=== PATIENT | male | born 1955 | race Caucasian/White ===

== ENCOUNTER 2019-03-27 06:26 | Emergency (ER) | payer OTHER ==
[~2019-03-27] VITALS: Ht 180.3 cm; Wt 90.7 kg
--- OUTSIDE RECORDS SUMMARY | 2019-03-27 06:29 | XMS REPORT ---
Author [facility] Address Unknown Phone Unavailable Care Team Providers Care [employer] Name Role Phone LENNOX STYLES Unavailable Unavailable Problems This patient has no known problems. Allergies, Adverse Reactions, Alerts This patient has no known allergies or adverse reactions. Medications This patient has no known medications. Results Test Description Test Time Test Comments Text Results Atomic Results Result Comments CT ABDOMEN/PELVIS WO 2019 16:14:00 [facility] [address] [place] [address] Patient Name: MUKESH HILLIARD MR #: [id number] : 1955 Age/Sex: 64/M Req #: [id number] Adm Physician: Ordered by: LENNOX STYLES DO Report #: [id number] Location: ER Room/Bed: Procedure: [id number] CT/CT ABDOMEN/PELVIS WO Exam Date: 03/11/19 Exam Time: 1530 REPORT STATUS: Signed CT of the abdomen and pelvis, without contrast, . History: Abdominal pain, hypotension. Comparison: None available. Technique: Multidetector CT scanning of the abdomen and pelvis was performed from the level of the lung bases to the inferior pubic rami without intravenous contrast due to abnormal renal function. Oral contrast was given. Coronal and sagittal multiplanar reformations were obtained. RADIATION DOSE: Total DLP: 630 mGy*cm Dose modulation, iterative reconstruction, and/or weight based adjustment of the mA/kV was utilized to reduce the radiation dose to as low as reasonably achievable. Discussion: Examination is limited without contrast. Lung bases: There is bibasilar linear atelectasis. A calcified granuloma is present in the left lower lobe. Abdomen: There is severe diffuse low-density of the liver which measures negative Hounsfield units in density. The gallbladder, biliary tree, spleen, pancreas, adrenal glands, and kidneys are unremarkable. The abdominal aorta is within normal limits. There is no bowel dilatation. The appendix is visualized and is normal. Multiple diverticuli are present within the descending and sigmoid colon without evidence of adjacent inflammation. A long segment of circumferential bowel wall thickening is present involving the proximal sigmoid colon without evidence of obstruction or end shouldering. There is no evidence of adenopathy or free fluid. Pelvis: The bladder, prostate, and seminal vesicles are unremarkable. There is no evidence of free fluid or adenopathy. Bilateral fat-containing inguinal hernias are present. Bones and soft tissues: Degenerative changes are present throughout the lumbar spine without evidence of lytic or sclerotic lesion. IMPRESSION: 1. Severe diffuse fatty infiltration of the liver. 2. Extensive colonic diverticulosis without evidence of diverticulitis. Sigmoid wall thickening is likely related to muscular hypertrophy from chronic diverticular disease rather than neoplasm. Recommend follow-up scan in 2 - 3 months. 3. Bilateral fat-containing inguinal hernias. Signed by: Nasra Sierra on 2019 4:49 PM Dictated By: NASRA SIERRA MD 48 Transcribed By: DEANDRE on 03/11/191648 COPY TO: LENNOX STYLES DO
--- NOTE | 2019-03-27 07:23 | NUR ---
CALLED AND SPOKE TO ANY, PTS AUNT AND STATES THAT SHE WILL BE DOWN AFTER A WHILE.
[2019-03-27] MEDS ORDERED: MULTIVITAMINS- 12 INJECTION 10 ML, FOLIC ACID MDV 5 MG, THIAMINE HCL INJ 100 MG in SODI... IV ONE (07:30)
[2019-03-27 08:10] LABS: AMPHETAMINES SCREEN,URINE NEGATIVE (NEGATIVE); BENZODIAZEPINES SCREEN,URINE NEGATIVE (NEGATIVE); PHENCYCLIDINE SCREEN,URINE NEGATIVE (NEGATIVE)
[2019-03-27 08:11] LABS: CLARITY,URINE CLEAR (CLEAR); COLOR,URINE YELLOW (YELLOW)
[2019-03-27 08:12] LABS: BILIRUBIN,URINE NEGATIVE (NEGATIVE); KETONES,URINE NEGATIVE (NEGATIVE); LEUKOCYTE ESTERASE ,URINE NEGATIVE (NEGATIVE); NITRITE,URINE NEGATIVE (NEGATIVE); PROTEIN,URINE DIPSTICK NEGATIVE (NEGATIVE); URINE UROBILINOGEN 0.2 mg/dL (0.2 - 1)
--- NOTE | 2019-03-27 08:12 | NUR ---
CLIENT TO CT WITH RIDDHI.
[2019-03-27 08:23] LABS: EOSINOPHILS # (AUTO) 0.4 (0.0-0.4); EOSINOPHILS % 8.7 % (0.0-6.0); HEMATOCRIT 31.3 % (38.2-49.6); HEMOGLOBIN 10.5 g/dL (14.0-18.0); LYMPHOCYTES # (AUTO) 1.3 (1.0-3.2); LYMPHOCYTES % 31.3 % (18.0-39.1); MEAN CORPUSCULAR HEMOGLOBIN 34.9 pg (28-32); MEAN CORPUSCULAR HGB CONC 33.5 g/dL (31-35); MONOCYTES # (AUTO) 0.6 (0.2-0.8); NEUTROPHILS # (AUTO) 1.8 (2.1-6.9); NEUTROPHILS % 44.3 % (38.7-80.0); PLATELET COUNT 271 x10e3/uL (140-360); RED BLOOD COUNT 3.01 x10e6/uL (4.3-5.7); RED CELL DISTRIBUTION WIDTH 15.5 % (11.7-14.4)
[2019-03-27 08:28] LABS: BACTERIA,URINE RARE /HPF; EPITHELIAL CELLS,URINE FEW /LPF; RBC,URINE 0-5 /HPF (0-5); WBC,URINE (MAN) 0-5 /HPF (0-5)
[2019-03-27 08:53] LABS: ALANINE AMINOTRANSFERASE 20 IU/L (0-55); ALBUMIN 3.7 g/dL (3.5-5.0); ALBUMIN/GLOBULIN RATIO 1.1 (0.8-2.0); ALKALINE PHOSPHATASE 90 IU/L (40-150); BLOOD UREA NITROGEN 8 mg/dL (7-26); BUN/CREATININE RATIO 8 (6-25); CALCIUM 9.4 mg/dL (8.4-10.2); CARBON DIOXIDE 25 mmol/L (22-29); CHLORIDE 96 mmol/L (98-107); CREATININE, SERUM 0.99 mg/dL (0.72-1.25); EST GLOMERULAR FILTRATION RATE > 60 ML/MIN (60-); GLUCOSE 87 mg/dL (74-118); SODIUM 139 mmol/L (136-145)
--- NOTE | 2019-03-27 09:00 | Diagnostic Imaging Report ---
Examination: Single AP view of the chest. COMPARISON: None. INDICATION: Syncope DISCUSSION: Lines/tubes: None. Lungs: The lungs are well inflated and clear. No pneumonia or pulmonary edema. Pleura: No pleural effusion or pneumothorax. Heart and mediastinum: The heart and the mediastinum are unremarkable. Bones and soft tissues: No acute bony abnormalities. IMPRESSION: 1. No acute cardiopulmonary abnormalities. Signed by: Dr. Jared Phoenix M.D. on 03/27/2019 8:57 AM
--- NOTE | 2019-03-27 09:20 | Diagnostic Imaging Report ---
History:Syncope Comparison studies:None Technique: Axial images were obtained from the skull base to the vertex. Coronal and sagittal images reconstructed from the axial data. Intravenous contrast: None Dose modulation, iterative reconstruction, and/or weight based adjustment of the mA/kV was utilized to reduce the radiation dose to as low as reasonably achievable. Findings: Scalp/skull: No abnormalities. Extra-axial spaces: No masses. No fluid collections. Brain sulci: Mildly prominent. Ventricles: Mild compensatory dilatation. No hydrocephalus. Parenchyma: Few hypodensities in the supratentorial white matter are small vessel ischemic changes. No masses, hemorrhage, acute or chronic cortical vascular insults. Sellar/suprasellar region: No abnormalities. Craniocervical junction: Patent foramen magnum. No Chiari one malformation. Incidental findings: Atherosclerotic calcifications in the carotid siphons . Mild mucosal thickening at the ethmoid air cells and left sphenoid sinus, nonspecific. 2 cm there is hypodensity in the left central posterior suboccipital neck, secondary to interval inclusion cyst. Impression: No acute abnormalities. Chronic findings: 1. Mild generalized volume loss. 2. Mild supratentorial white matter small vessel ischemic changes. Signed by: DR Mike Denton M.D. on 03/27/2019 9:17 AM
== END 2019-03-27 12:02 | disposition home or self-care (01) ==
LOC: ER 06:26
DX: R55 Syncope and collapse (principal); F10.129 Alcohol abuse with intoxication, unspecified; I10 Essential (primary) hypertension; E86.0 Dehydration; F17.200 Nicotine dependence, unspecified, uncomplicated
CPT/HCPCS: 36415; 70450; 71045; 80053; 80307; 80320; 81001; 85025; 93005; 99284; J3411; J7030

== ENCOUNTER 2019-12-04 18:48 | Inpatient (IN) | payer OTHER ==
[~2019-12-04] VITALS: Ht 180.3 cm; Wt 73.0 kg
[2019-12-04] MEDS ORDERED: PANTOPRAZOLE 40 MG 10ML VIAL IV STA (19:02)
[2019-12-04] MEDS ORDERED: ONDANSETRON HCL INJ 2MG/ML 2ML 2 MG/ML VIAL IV STA (19:02)
--- OUTSIDE RECORDS SUMMARY | 2019-12-04 19:04 | XMS REPORT | Continuity of Care Document ---
Author Author [facility] Organization [facility] Address [address] [place] [address] Dr. Garcia [address] [place] [id number] Phone Unavailable Care Team Providers Care Plug Assembler Name Role Phone SUZANNE KHAN DO PCP Carissa GUSTAFSON Attphys Unavailable LENNOX STYLES Attphyoriana Unavailable Payers Payer Name Policy Type Policy Number Effective Date Expiration Date Oriana [employer] [id number] 2019 00:00:00 [facility] Problems This patient has no known problems. Allergies, Adverse Reactions, Alerts This patient has no known allergies or adverse reactions. Medications This patient has no known medications. Procedures Procedure Date / Time Performed Performing Clinician Sour e Computed tomography of brain without radiopaque contrast 00:00:00 HEBER TOLENTINO [facility] CT of abdomen and pelvis without contrast 2019 00:00:00 LENNOX GARDNER [facility] Encounters Start Date/Time End Date/Time [facility] ID Source 2019-03-27 06:26:00 2019-03-27 12:02:00 Departed Emergency Room 1 EDILMA GUSTAFSON [facility] [id number] [facility] 2019 13:39:00 2019 21:20:00 Departed Emergency Room 1 LENNOX STYLES [facility] [id number] [facility] Results Test Description Test Time Test Comments Results Result Comments Source CT BRAIN WO 2019-03-27 09:11:00 [facility] [address] [place], [place] [address] Patient Name: MUKESH HILLIARD JR MR #: [id number] : 1955 Age/Sex: 64/M Req #: [id number] [facility] Physician: Ordered by: HEBER TOLENTINO MD Report #: [id number] Location: ER Room/Bed: Procedure: [id number] CT/CT BRAIN WO Exam Date: 03/27/19 Exam Time: 0900 REPORT STATUS: Signed History:Syncope Comparison studies:None Te chn[place]: Axial images were obtained from the skull base to the vertex. Coronal and sagittal images reconstructed from the axial data. Intravenous contrast: None Dose modulation, iterative reconstruction, and/or weight based adjustment of the mA/kV was utilized to reduce the radiation dose to as low as reasonably achievable. Findings: Scalp/skull: No abnormalities. Extra-axial spaces: No masses. No fluid collections. Brain sulci: Mildly prominent. Ventricles: Mild compensatory dilatation. No hydrocephalus. Parenchyma: Few hypodensities in the supratentorial white matter are small vessel ischemic changes. No masses, hemorrhage, acute or chronic cortical vascular insults. Sellar/suprasellar region: No abnormalities. Craniocervical junction: Patent foramen magnum. No Chiari one malformation. Incidental findings: Atherosclerotic calcifications in the carotid siphons . Mild mucosal thickening at the ethmoid air cells and left sphenoid sinus, nonspecific. 2 cm there is hypodensity in the left central posterior suboccipital neck, secondary to interval inclusion cyst. Impression: No acute abnormalities. Chronic findings: 1. Mild generalized volume loss. 2. Mild supratentorial white matter small vessel ischemic changes. Signed by: DR Mike Denton M.D. on 03/27/2019 9:17 AM Dictated By: MIKE ELLIS MD 6 Transcribed By: DEANDRE on 03/27/19916 COPY TO: HEBER TOLENTINO MD CHEST SINGLE (PORTABLE) 2019-03-27 08:56:00 [facility] [address] [place] [address] Patient Name: MUKESH HILLIARD JR MR #: [id number] : 1955 Age/Sex: 64/M Req #: [id number] Adm Physician: Ordered by: HEBER TOLENTINO MD Report #: [id number] Location: ER Room/Bed: Procedure: [id number] DX/CHEST SINGLE (PORTABLE) Exam Date: Exam Time: REPORT STATUS: Signed Examination: Single AP view of the chest. COMPARISON: None. INDICATION: Syncope DISCUSSION: Lines/tubes: None. Lungs: The lungs are well inflated and clear. No pneumonia or pulmonary edema. Pleura: No pleural effusion or pneumothorax. Heart and mediastinum: The heart and the mediastinum are unremarkable. Bones and soft tissues: No acute bony abnormalities. IMPRESSION: 1. No acute cardiopulmonary abnormalities. Signed by: Dr. Suzanne Hernandez M.D. on 03/27/2019 8:57 AM Dictated By: SUZANNE HERNANDEZ MD 6 Transcribed By: DEANDRE on 03/27/19856 COPY TO: HEBER TOLENTINO MD Ethyl Alcohol Level 2019-03-27 08:54:00 Test Item Ethyl Alcohol Level (test code = 5643-2) 289.6 0.0-10.0 [facility] Uqnyl8692-55-07 08:53:00* Test Item Value Reference Range Interpretation Comments Sodium Level (test code = 2951-2) 139 136-145 [facility]assium Cnddm4535-69-30 08:53:00* Test Item Value Reference Range Interpretation Comments Potassium Level (test code = 2823-3) 4.0 3.5-5.1 [facility]Chloride Zbqes7088-91-32 08:53:00* Test Item Value Reference Range Interpretation Comments Chloride Level (test code = 2075-0) 96 98-107 L [facility] SouthCarbon Dioxide Gysgq3206-03-24 08:53:00* Test Item Value Reference Range Interpretation Comments Carbon Dioxide Level (test code = 2028-9) 25 22-29 [facility] SouthAnion Whb6072-40-21 08:53:00* Test Item Value Reference Range Interpretation Comments Anion Gap (test code = 85698-2) 22.0 8-16 H [facility] Urea Kyokpaax1188-75-35 08:53:00* Test Item Value Reference Range Interpretation Comments Blood Urea Nitrogen (test code = 3094-0) 8 7-26 [facility] SouthCreatinine2020-02-08 08:53:00* Test Item Value Reference Range Interpretation Comments Creatinine (test code = 2160-0) 0.99 0.72-1.25 [facility]BUN/Creatinine Xoaok3449-96-05 08:53:00* Test Item Value Reference Range Interpretation Comments BUN/Creatinine Ratio (test code = 3097-3) 8 6-25 [facility] SouthEstimat Glomerular Filtration Rate 2019-03-27 08:53:00* Test Item Value Reference Range Interpretation Comments Estimat Glomerular Filtration Rate (test code = 301498045) > 60 >60 Ranges were taken from the National Kidney Disease Education Program and the [facility] Kidney Foundation literature.Reference ranges:60 or greater: Ovsvom76-96 ( for 3 consecutive months): Chronic kidney disease 15 or less: Kidney failureCHRISTUS [facility]ohn Hospital [facility]i – SouthGlucose Apyfi2873-22-57 08:53:00* Test Item Value Reference Range Interpretation Comments Glucose Level (test code = FDP3065) 87 74-118 [facility] SouthCalcium Rfzpo2087-74-91 08:53:00* Test Item Value Reference Range Interpretation Comments Calcium Level (test code = 98570-8) 9.4 8.4-10.2 [facility] SouthTotal Qgcjkqgxi5130-14-94 08:53:00* Test Item Value Reference Range Interpretation Comments Total Bilirubin (test code = 1975-2) 0.3 0.2-1.2 [facility] SouthAspartate Amino Transf (AST/SGOT) 2019-03-27 08:53:00* Test Item Value Reference Range Interpretation Comments Aspartate Amino Transf (AST/SGOT) (test code = Aspartate Amino Transf (AST/SGOT)) 46 5-34 H [facility] SouthAlanine Aminotransferase (ALT/SGPT) 2019-03-27 08:53:00* Test Item Value Reference Range Interpretation Comments Alanine Aminotransferase (ALT/SGPT) (test code = 1742-6) 20 0-55 [facility]Total Ngjhuwl6560-75-72 08:53:00* Test Item Value Reference Range Interpretation Comments Total Protein (test code = 2885-2) 7.1 6.5-8.1 [facility] SouthAlbumin2020-02-08 08:53:00* Test Item Value Reference Range Interpretation Comments Albumin (test code = 1751-7) 3.7 3.5-5.0 [facility] SouthGlobulin2020-02-08 08:53:00* Test Item Value Reference Range Interpretation Comments Globulin (test code = 65999-6) 3.4 2.3-3.5 [facility] SouthAlbumin/Globulin Xujbs4679-31-56 08:53:00 * Test Item Value Reference Range Interpretation Comments Albumin/Globulin Ratio (test code = 1759-0) 1.1 0.8-2.0 [facility] SouthAlkaline Xqjghxutkym1406-81-17 08:53:00* Test Item Value Reference Range Interpretation Comments Alkaline Phosphatase (test code = 6768-6) 90 40-150 [facility] SouthUrine ILJ1433-39-47 08:28:00* Test Item Value Reference Range Interpretation Comments Urine WBC (test code = 5821-4) 0-5 0-5 [facility] SouthUrine OCA5970-53-76 08:28:00* Test Item Value Reference Range Interpretation Comments Urine RBC (test code = 68123-0) 0-5 0-5 [facility] SouthUrine Rrrtifah1757-43-34 08:28:00* Test Item Value Reference Range Interpretation Comments Urine Bacteria (test code = 18379-5) RARE NONE [facility] SouthUrine Epithelial Kbjuo4216-00-86 08:28:00 * Test Item Value Reference Range Interpretation Comments Urine Epithelial Cells (test code = 24305-5) FEW NONE [facility] SouthWhite Blood Kuyri4055-49-35 08:25:00* Test Item Value Reference Range Interpretation Comments White Blood Count (test code = 6690-2) 4.15 4.8-10.8 L [facility] SouthRed Blood Tmcja7518-36-94 08:25:00* Test Item Value Reference Range Interpretation Comments Red Blood Count (test code = 789-8) 3.01 4.3-5.7 L [facility] SouthHemoglobin2020-02-08 08:25:00* Test Item Value Reference Range Interpretation Comments Hemoglobin (test code = 35800-1) 10.5 14.0-18.0 L [facility] SouthHematocrit2020-02-08 08:25:00* Test Item Value Reference Range Interpretation Comments Hematocrit (test code = 4544-3) 31.3 38.2-49.6 L [facility] SouthMean Corpuscular Mqtwfy0427-51-50 08:25:00* Test Item Value Reference Range Interpretation Comments Mean Corpuscular Volume (test code = 787-2) 104.0 81-99 H [facility] SouthMean Corpuscular Wjfuifbzrs9343-98-64 08:25:00* Test Item Value Reference Range Interpretation Comments Mean Corpuscular Hemoglobin (test code = 785-6) 34.9 28-32 H [facility] SouthMean Corpuscular Hemoglobin Concent 2019-03-27 08:25:00* Test Item Value Reference Range Interpretation Comments Mean Corpuscular Hemoglobin Concent (test code = 786-4) 33.5 31-35 [facility] SouthRed Cell Distribution Ywwpj9451-90-95 08:25:00* Test Item Value Reference Range Interpretation Comments Red Cell Distribution Width (test code = 39330-6) 15.5 11.7 -14.4 H [facility] SouthPlatelet Ehxnm7170-47-86 08:25:00* Test Item Value Reference Range Interpretation Comments Platelet Count (test code = 777-3) 271 140-360 [facility] SouthNeutrophils (%) (Auto)2019-03-27 08:25:00 * Test Item Value Reference Range Interpretation Comments Neutrophils (%) (Auto) (test code = 30702-7) 44.3 38.7-80.0 [facility] SouthLymphocytes (%) (Auto)2019-03-27 08:25:00 * Test Item Value Reference Range Interpretation Comments Lymphocytes (%) (Auto) (test code = 736-9) 31.3 18.0-39.1 [facility] SouthMonocytes (%) (Auto)2019-03-27 08:25:00* Test Item Value Reference Range Interpretation Comments Monocytes (%) (Auto) (test code = 5905-5) 14.0 4.4-11.3 H [facility] SouthEosinophils (%) (Auto)2019-03-27 08:25:00 * Test Item Value Reference Range Interpretation Comments Eosinophils (%) (Auto) (test code = 713-8) 8.7 0.0-6.0 H [facility] SouthBasophils (%) (Auto)2019-03-27 08:25:00* Test Item Value Reference Range Interpretation Comments Basophils (%) (Auto) (test code = 706-2) 1.0 0.0-1.0 [facility] SouthIM GRANULOCYTES %2019-03-27 08:25:00* Test Item Value Reference Range Interpretation Comments IM GRANULOCYTES % (test code = IM GRANULOCYTES %) 0.7 0.0- 1.0 [facility] SouthNeutrophils # (Auto)2019-03-27 08:25:00* Test Item Value Reference Range Interpretation Comments Neutrophils # (Auto) (test code = 751-8) 1.8 2.1-6.9 L [facility] SouthLymphocytes # (Auto)2019-03-27 08:25:00* Test Item Value Reference Range Interpretation Comments Lymphocytes # (Auto) (test code = 96080-7) 1.3 1.0-3.2 [facility] SouthMonocytes # (Auto)2019-03-27 08:25:00* Test Item Value Reference Range Interpretation Comments Monocytes # (Auto) (test code = 742-7) 0.6 0.2-0.8 [facility]Eosinophils # (Auto)2019-03-27 08:25:00* Test Item Value Reference Range Interpretation Comments Eosinophils # (Auto) (test code = 711-2) 0.4 0.0-0.4 [facility]ophils # (Auto)2019-03-27 08:25:00* Test Item Value Reference Range Interpretation Comments Basophils # (Auto) (test code = 704-7) 0.0 0.0-0.1 [facility] SouthAbsolute Immature Granulocyte (auto 2019-03-27 08:25:00* Test Item Value Reference Range Interpretation Comments Absolute Immature Granulocyte (auto (cecile t code = Absolute Immature Granulocyte (auto) 0.03 0-0.1 [facility] SouthUrine Bgyuo9918-26-58 08:12:00* Test Item Value Reference Range Interpretation Comments Urine Color (test code = 5778-6) YELLOW YELLOW [facility] SouthUrine Pztprwm3817-14-64 08:12:00* Test Item Value Reference Range Interpretation Comments Urine Clarity (test code = 47184-9) CLEAR CLEAR [facility] SouthUrine Specific Zjfkgar2685-84-90 08:12:00 * Test Item Value Reference Range Interpretation Comments Urine Specific [place] (test code = 5811-5) 1.010 1.010-1.02 5 [facility] SouthUrine zW7744-20-97 08:12:00* Test Item Value Reference Range Interpretation Comments Urine pH (test code = 37582-5) 5.5 5-7 [facility] South[facility] Leukocyte Vgyxcmwp0197-45-72 08:12:00* Test Item Value Reference Range Interpretation Comments Urine Leukocyte Esterase (test code = 5799-2) NEGATIVE NEGATIVE [facility] SouthUrine Ghpswkz9214-87-92 08:12:00* Test Item Value Reference Range Interpretation Comments Urine Nitrite (test code = 10764-7) NEGATIVE NEGATIVE [facility] SouthUrine Uobkpxq0328-02-96 08:12:00* Test Item Value Reference Range Interpretation Comments Urine Protein (test code = 5804-0) NEGATIVE NEGATIVE [facility] Glucose (UA)2019-03-27 08:12:00* Test Item Value Reference Range Interpretation Comments Urine Glucose (UA) (test code = 2349-9) NEGATIVE NEGATIVE [facility] SouthUrine Mflaroc4703-42-24 08:12:00* Test Item Value Reference Range Interpretation Comments Urine Ketones (test code = 87334-1) NEGATIVE NEGATIVE [facility] SouthUrine Opiates Zvohme9836-55-37 08:12:00* Test Item Value Reference Range Interpretation Comments Urine Opiates Screen (test code = 25260-8) NEGATIVE NEGATIVE ALL TESTS PERFORMED MANUALLY ON [employer] TOX/SEE TESTCHRISTUS [facility] – SouthUrine Barbiturates Hrrfza5422-15-90 08:12:00* Test Item Value Reference Range Interpretation Comments Urine Barbiturates Screen (test code = 994003203) NEGATIVE NEGA TIVE [facility] SouthU[facility] Phencyclidine Vlowkj7214-29-89 08:12:00* Test Item Value Reference Range Interpretation Comments Urine Phencyclidine Screen (test code = 99987-9) NEGATIVE NEGAT GRICELDA [facility] SouthU[facility] Amphetamines Wdwxci2060-92-82 08:12:00* Test Item Value Reference Range Interpretation Comments Urine Amphetamines Screen (test code = 10172-7) NEGATIVE NEGATI VE [facility] SouthU[facility] Methamphetamines Rlosvb4031-94-81 08:12:00* Test Item Value Reference Range Interpretation Comments Urine Methamphetamines Screen (test code = Urine Metha mphetamines Screen) NEGATIVE NEGATIVE [facility] South[facility] Benzodiazepines Iyzlle6705-39-90 08:12:00* Test Item Value Reference Range Interpretation Comments Urine Benzodiazepines Screen (test code = 50662-1) NEGATIVE NEG ATIVE [facility] Cocaine Bgaoag5266-34-18 08:12:00* Test Item Value Reference Range Interpretation Comments Urine Cocaine Screen (test code = 3398-5) NEGATIVE NEGATIVE [facility] Cannabinoids Dvrzil4824-59-64 08:12:00* Test Item Value Reference Range Interpretation Comments Urine Cannabinoids Screen (test code = 31994-3) NEGATIVE NEGATI VE THESE RESULTS ARE FOR MEDICAL TREATMENT ONLYTHIS REPORT CONTAINS UNCONFIR MED SCREENING RESULTS*POSITIVE RESULTS WILL BE CONFIRMED BY REFERENCE LAB UPON R EQUEST CUT-OFFDRUG CLASS CONCENTRATION ng/mLAmphetamines 1000Methamphetamines 1000Cocaine 300Opiate 300Phencyc lidine 25Cannabinoid 50Barbiturates 300Benzodiazepine 300Methadone 300[facility] Methadone Asdqtw8544-15-48 08:12:00* Test Item Value Reference Range Interpretation Comments Urine Methadone Screen (test code = 02993-9) NEGATIVE NEGATIVE THESE RESULTS ARE FOR MEDICAL TREATMENT ONLYTHIS REPORT CONTAINS UNCONFIR MED SCREENING RESULTS*POSITIVE RESULTS WILL BE CONFIRMED BY REFERENCE LAB UPON R EQUEST CUT-OFFDRUG CLASS CONCENTRATION ng/mLAmphetamines 1000Methamphetamines 1000Cocaine Metabolite 300Opiate 300Phencyc lidine 25Cannabinoid 50Barbiturates 300Benzodiazepine 300Methadone 300[facility]field[facility] Tzhlzoaqcfri4077-46-80 08:12:00* Test Item Value Reference Range Interpretation Comments Urine Urobilinogen (test code = 17754-9) 0.2 0.2-1 [facility] Ahwbxexgh8092-74-33 08:12:00* Test Item Value Reference Range Interpretation Comments Urine Bilirubin (test code = 1978-6) NEGATIVE NEGATIVE [facility] Wegxc4497-29-25 08:12:00* Test Item Value Reference Range Interpretation Comments Urine Blood (test code = 91300-8) TRACE NEGATIVE H [facility] SouthBlood Nksevxa9098-44-82 14:59:00* Test Item Value Reference Range Interpretation Comments Blood Culture (test code = 81486521) NO GROWTH AFTER 5 DAYS, FINAL REPORT [facility] Ulssx0221-68-83 19:29:00* Test Item Value Reference Range Interpretation Comments Urine Color (test code = 5778-6) YELLOW YELLOW [facility] Cluxzqj5073-59-09 19:29:00* Test Item Value Reference Range Interpretation Comments Urine Clarity (test code = 24224-9) CLEAR CLEAR [facility] Specific Bfeuqle3318-71-54 19:29:00 * Test Item Value Reference Range Interpretation Comments Urine Specific [place] (test code = 5811-5) 1.015 1.010-1.02 5 [facility] uT8679-41-89 19:29:00* Test Item Value Reference Range Interpretation Comments Urine pH (test code = 86776-2) 5.5 5-7 [facility] Leukocyte Wwnqamyq3648-46-74 19:29:00* Test Item Value Reference Range Interpretation Comments Urine Leukocyte Esterase (test code = 5799-2) NEGATIVE NEGATIVE [facility] Lqwpqvd4308-71-52 19:29:00* Test Item Value Reference Range Interpretation Comments Urine Nitrite (test code = 71849-9) NEGATIVE NEGATIVE [facility] Qvtyqfz5654-44-71 19:29:00* Test Item Value Reference Range Interpretation Comments Urine Protein (test code = 5804-0) TRACE NEGATIVE H [facility] South[facility]rine Glucose (UA)2019 19:29:00* Test Item Value Reference Range Interpretation Comments Urine Glucose (UA) (test code = 2349-9) NEGATIVE NEGATIVE [facility] Umanzne8330-33-62 19:29:00* Test Item Value Reference Range Interpretation Comments Urine Ketones (test code = 11201-4) TRACE NEGATIVE H [facility] Oijktgdfgxjy5000-42-50 19:29:00* Test Item Value Reference Range Interpretation Comments Urine Urobilinogen (test code = 31342-4) 0.2 0.2-1 [facility] Jdrqamufd2792-88-85 19:29:00* Test Item Value Reference Range Interpretation Comments Urine Bilirubin (test code = 1978-6) NEGATIVE NEGATIVE [facility] Alfmz7861-30-55 19:29:00* Test Item Value Reference Range Interpretation Comments Urine Blood (test code = 95535-0) NEGATIVE NEGATIVE [facility] PKB5075-37-86 19:29:00* Test Item Value Reference Range Interpretation Comments Urine WBC (test code = 5821-4) NONE 0-5 [facility] VKM9180-29-37 19:29:00* Test Item Value Reference Range Interpretation Comments Urine RBC (test code = 06542-8) NONE 0-5 [facility] Jlqaqgwx8055-19-89 19:29:00* Test Item Value Reference Range Interpretation Comments Urine Bacteria (test code = 87327-0) NONE NONE [facility] Epithelial Kqvnd2145-56-97 19:29:00 * Test Item Value Reference Range Interpretation Comments Urine Epithelial Cells (test code = 33626-5) RARE NONE [facility] SouthCT ABDOMEN/PELVIS ZH7858-28-61 16:14:00 [place] [address] Patient Name: MUKESH HILLIARD MR #: [id number] : 1955 Age/Sex: 64/M Req #: [id number] Adm Physician: Ordered by: LENNOX STYLES DO Report #: [id number] Location: Room/Bed: Procedure: [id number] C T/CT ABDOMEN/PELVIS WO Exam Date: 03/11/19 Exam Time : 1530 REPORT STATUS: Signed CT of the abdomen and pelvis, without contrast, 2019. H istory: Abdominal pain, hypotension. Comparison: None available. Techn ique: Multidetector CT scanning of the abdomen and pelvis was performed from t he level of the lung bases to the inferior pubic rami without intravenous cont rast due to abnormal renal function. Oral contrast was given. Coronal and sagi ttal multiplanar reformations were obtained. RADIATION DOSE: Total D LP: 630 mGy*cm Dose modulation, iterative reconstruction, and/or weight b ased adjustment of the mA/kV was utilized to reduce the radiation dose to as l ow as reasonably achievable. Discussion: Examination is limited without contrast. Lung bases: There is bibasilar linear atelectasis. A calcified granu jyoti is present in the left lower lobe. Abdomen: There is severe diffuse low-density of the liver which measures negative Hounsfield units in density. The gallbladder, biliary tree, spleen, pancreas, adrenal glands, and kidneys a re unremarkable. The abdominal aorta is within normal limits. There is no bow el dilatation. The appendix is visualized and is normal. Multiple diverticuli are present within the descending and sigmoid colon without evidence of adjace nt inflammation. A long segment of circumferential bowel wall thickening is pr esent involving the proximal sigmoid colon without evidence of obstruction or end shouldering. There is no evidence of adenopathy or free fluid. Pelv is: The bladder, prostate, and seminal vesicles are unremarkable. There is no evidence of free fluid or adenopathy. Bilateral fat-containing inguinal hernia s are present. Bones and soft tissues: Degenerative changes are present thr oughout the lumbar spine without evidence of lytic or sclerotic lesion. IMPRESSION: 1. Severe diffuse fatty infiltration of the liver. 2. Exten sive colonic diverticulosis without evidence of diverticulitis. Sigmoid wall t hickening is likely related to muscular hypertrophy from chronic diverticular disease rather than neoplasm. Recommend follow-up scan in 2 - 3 months. 3. B ilateral fat-containing inguinal hernias. Signed by: Jeremiah Sierra on 2019 4:49 PM Dictated By: JEREMIAH SIERRA MD 48 Transcribed By: DEANDRE on 03/11/191648 C OPY TO: LENNOX STYLES DO [id number] 15:59:00* Test Item Value Reference Range Interpretation Comments Lipase (test code = 3040-3) 148 8-78 [facility] 15:59:00* Test Item Value Reference Range Interpretation Comments Lipase (test code = 3040-3) 148 8-78 H [facility] SouthCreatine Kinase [id number] 15:34:00* Test Item Value Reference Range Interpretation Comments Creatine Kinase MB (test code = 41028-3) 1.80 0-5.0 [facility]Tr[facility] [id number] 15:34:00* Test Item Value Reference Range Interpretation Comments Troponin I (test code = LUF7898) 0.098 0-0.300 [facility] SouthCreatine Kinase [id number] 15:34:00* Test Item Value Reference Range Interpretation Comments Creatine Kinase MB (test code = 65764-0) 1.80 0-5.0 [place] [id number] 15:34:00* Test Item Value Reference Range Interpretation Comments Troponin I (test code = LZU4518) 0.098 0-0.300 [facility] [id number] 15:29:00* Test Item Value Reference Range Interpretation Comments Sodium Level (test code = 2951-2) 132 136-145 L [facility] SouthPotassium [id number] 15:29:00* Test Item Value Reference Range Interpretation Comments Potassium Level (test code = 2823-3) 3.8 3.5-5.1 [facility] SouthChloride [id number] 15:29:00* Test Item Value Reference Range Interpretation Comments Chloride Level (test code = 2075-0) 83 98-107 L [facility] SouthCarbon Dioxide [id number] 15:29:00* Test Item Value Reference Range Interpretation Comments Carbon Dioxide Level (test code = 2028-9) 30 22-29 H [facility] SouthAnion [id number] 15:29:00* Test Item Value Reference Range Interpretation Comments Anion Gap (test code = 76652-8) 22.8 8-16 H [facility] SouthBlood Urea [id number] 15:29:00* Test Item Value Reference Range Interpretation Comments Blood Urea Nitrogen (test code = 3094-0) 30 7-26 H [facility] SouthCreatinine2020-01-23 15:29:00* Test Item Value Reference Range Interpretation Comments Creatinine (test code = 2160-0) 1.98 0.72-1.25 H [facility] SouthBUN/Creatinine [id number] 15:29:00* Test Item Value Reference Range Interpretation Comments BUN/Creatinine Ratio (test code = 3097-3) 15 6-25 [facility] SouthEstimat Glomerular Filtration Rate 2019 15:29:00* Test Item Value Reference Range Interpretation Comments Estimat Glomerular Filtration Rate (test code = 142006965) 34 >60 L Ranges were taken from the National Kidney Disease Education Program and the [facility] Kidney Foundation literature.Reference ranges:60 or greater: Ahlswr02-59 ( for 3 consecutive months): Chronic kidney disease 15 or less: Kidney failureCHRISTUS [facility] Christi – SouthGlucose [id number] 15:29:00* Test Item Value Reference Range Interpretation Comments Glucose Level (test code = TQM8976) 112 74-118 [facility] SouthCalcium [id number] 15:29:00* Test Item Value Reference Range Interpretation Comments Calcium Level (test code = 44840-2) 9.7 8.4-10.2 [facility] SouthTotal Tqiqpqjbt3248-48-69 15:29:00* Test Item Value Reference Range Interpretation Comments Total Bilirubin (test code = 1975-2) 0.6 0.2-1.2 [facility] SouthAspartate Amino Transf (AST/SGOT) 2019 15:29:00* Test Item Value Reference Range Interpretation Comments Aspartate Amino Transf (AST/SGOT) (test code = Aspartate Amino Transf (AST/SGOT)) 37 5-34 H [facility] SouthAlanine Aminotransferase (ALT/SGPT) 2019 15:29:00* Test Item Value Reference Range Interpretation Comments Alanine Aminotransferase (ALT/SGPT) (test code = 1742-6) 24 0-55 [facility] SouthTotal [id number] 15:29:00* Test Item Value Reference Range Interpretation Comments Total Protein (test code = 2885-2) 6.9 6.5-8.1 [facility] SouthAlbumin2020-01-23 15:29:00* Test Item Value Reference Range Interpretation Comments Albumin (test code = 1751-7) 3.9 3.5-5.0 [facility] SouthGlobulin2020-01-23 15:29:00* Test Item Value Reference Range Interpretation Comments Globulin (test code = 08504-3) 3.0 2.3-3.5 [facility] SouthAlbumin/Globulin [id number] 15:29:00 * Test Item Value Reference Range Interpretation Comments Albumin/Globulin Ratio (test code = 1759-0) 1.3 0.8-2.0 [facility] SouthAlkaline Bpdfayshdqj2379-05-27 15:29:00* Test Item Value Reference Range Interpretation Comments Alkaline Phosphatase (test code = 6768-6) 76 40-150 [facility] SouthCreatine Svhlik2503-27-13 15:29:00* Test Item Value Reference Range Interpretation Comments Creatine Kinase (test code = 2157-6) 58 30-200 [facility] SouthCreatine [id number] 15:29:00* Test Item Value Reference Range Interpretation Comments Creatine Kinase (test code = 2157-6) 58 30-200 [facility] SouthLactic Acid [id number] 15:23:00* Test Item Value Reference Range Interpretation Comments Lactic Acid Level (test code = Lactic Acid Level) 2.0 0.5- 2.0 [facility] SouthLactic Acid [id number] 15:23:00* Test Item Value Reference Range Interpretation Comments Lactic Acid Level (test code = Lactic Acid Level) 2.0 0.5- 2.0 [facility] SouthWhite Blood [id number] 15:06:00* Test Item Value Reference Range Interpretation Comments White Blood Count (test code = 6690-2) 8.20 4.8-10.8 [facility] SouthRed Blood [id number] 15:06:00* Test Item Value Reference Range Interpretation Comments Red Blood Count (test code = 789-8) 3.22 4.3-5.7 L [facility] SouthHemoglobin2020-01-23 15:06:00* Test Item Value Reference Range Interpretation Comments Hemoglobin (test code = 79686-1) 11.0 14.0-18.0 L [facility] SouthHematocrit2020-01-23 15:06:00* Test Item Value Reference Range Interpretation Comments Hematocrit (test code = 4544-3) 31.8 38.2-49.6 L [facility] SouthMean Corpuscular Edsczc4445-16-61 15:06:00* Test Item Value Reference Range Interpretation Comments Mean Corpuscular Volume (test code = 787-2) 98.8 81-99 [facility] SouthMean Corpuscular Elyqgczfon8126-15-09 15:06:00* Test Item Value Reference Range Interpretation Comments Mean Corpuscular Hemoglobin (test code = 785-6) 34.2 28-32 H [facility] SouthMean Corpuscular Hemoglobin Concent 2019 15:06:00* Test Item Value Reference Range Interpretation Comments Mean Corpuscular Hemoglobin Concent (test code = 786-4) 34.6 31-35 [facility] SouthRed Cell Distribution Jyokk0745-30-19 15:06:00* Test Item Value Reference Range Interpretation Comments Red Cell Distribution Width (test code = 18144-1) 12.7 11.7 -14.4 [facility] SouthPlatelet [id number] 15:06:00* Test Item Value Reference Range Interpretation Comments Platelet Count (test code = 777-3) 265 140-360 [facility] SouthNeutrophils (%) (Auto)2019 15:06:00 * Test Item Value Reference Range Interpretation Comments Neutrophils (%) (Auto) (test code = 33759-7) 72.2 38.7-80.0 [facility] SouthLymphocytes (%) (Auto)2019 15:06:00 * Test Item Value Reference Range Interpretation Comments Lymphocytes (%) (Auto) (test code = 736-9) 15.0 18.0-39.1 L [facility] SouthMonocytes (%) (Auto)2019 15:06:00* Test Item Value Reference Range Interpretation Comments Monocytes (%) (Auto) (test code = 5905-5) 8.5 4.4-11.3 [facility] SouthEosinophils (%) (Auto)2019 15:06:00 * Test Item Value Reference Range Interpretation Comments Eosinophils (%) (Auto) (test code = 713-8) 3.0 0.0-6.0 [facility] SouthBasophils (%) (Auto)2019 15:06:00* Test Item Value Reference Range Interpretation Comments Basophils (%) (Auto) (test code = 706-2) 0.7 0.0-1.0 [facility] SouthIM GRANULOCYTES %2019 15:06:00* Test Item Value Reference Range Interpretation Comments IM GRANULOCYTES % (test code = IM GRANULOCYTES %) 0.6 0.0- 1.0 [facility] SouthNeutrophils # (Auto)2019 15:06:00* Test Item Value Reference Range Interpretation Comments Neutrophils # (Auto) (test code = 751-8) 5.9 2.1-6.9 [facility] SouthLymphocytes # (Auto)2019 15:06:00* Test Item Value Reference Range Interpretation Comments Lymphocytes # (Auto) (test code = 61598-4) 1.2 1.0-3.2 [facility] SouthMonocytes # (Auto)2019 15:06:00* Test Item Value Reference Range Interpretation Comments Monocytes # (Auto) (test code = 742-7) 0.7 0.2-0.8 [facility] SouthEosinophils # (Auto)2019 15:06:00* Test Item Value Reference Range Interpretation Comments Eosinophils # (Auto) (test code = 711-2) 0.3 0.0-0.4 [facility] SouthBasophils # (Auto)2019 15:06:00* Test Item Value Reference Range Interpretation Comments Basophils # (Auto) (test code = 704-7) 0.1 0.0-0.1 [facility] SouthAbsolute Immature Granulocyte (auto 2019 15:06:00* Test Item Value Reference Range Interpretation Comments Absolute Immature Granulocyte (auto (cecile t code = Absolute Immature Granulocyte (auto) 0.05 0-0.1 [facility]
[2019-12-04] MEDS ORDERED: MULTIVITAMINS- 12 INJECTION 10 ML, FOLIC ACID MDV 5 MG, THIAMINE HCL INJ 100 MG in SODI... IV ONE (19:15)
[2019-12-04] MEDS ORDERED: CHLORDIAZEPOXIDE HCL 25 MG CAP PO ONE (19:15)
[2019-12-04 19:22] LABS: BASOPHILS % 0.2 % (0.0-1.0); HEMATOCRIT 40.3 % (38.2-49.6); HEMOGLOBIN 13.3 g/dL (14.0-18.0); LYMPHOCYTES # (AUTO) 0.6 (1.0-3.2); MEAN CORPUSCULAR HEMOGLOBIN 34.7 pg (28-32); MEAN CORPUSCULAR VOLUME 105.2 fL (81-99); MONOCYTES % 10.1 % (4.4-11.3); NEUTROPHILS % 83.2 % (38.7-80.0); PLATELET COUNT 83 x10e3/uL (140-360); RED BLOOD COUNT 3.83 x10e6/uL (4.3-5.7); RED CELL DISTRIBUTION WIDTH 17.6 % (11.7-14.4)
[2019-12-04 19:44] LABS: CLARITY,URINE HAZY (CLEAR); COLOR,URINE AMBER (YELLOW); LEUKOCYTE ESTERASE ,URINE NEGATIVE (NEGATIVE); NITRITE,URINE NEGATIVE (NEGATIVE)
[2019-12-04 19:45] LABS: AMPHETAMINES SCREEN,URINE NEGATIVE (NEGATIVE); BENZODIAZEPINES SCREEN,URINE NEGATIVE (NEGATIVE); KETONES,URINE >=160 (NEGATIVE); PHENCYCLIDINE SCREEN,URINE NEGATIVE (NEGATIVE); PROTEIN,URINE DIPSTICK 2+ (NEGATIVE)
[2019-12-04 19:47] LABS: BILIRUBIN,URINE MODERATE (NEGATIVE); URINE UROBILINOGEN 4 mg/dL (0.2 - 1)
[2019-12-04 19:50] LABS: ALANINE AMINOTRANSFERASE 49 IU/L (0-55); ALBUMIN 3.6 g/dL (3.5-5.0); ALBUMIN/GLOBULIN RATIO 0.9 (0.8-2.0); ALKALINE PHOSPHATASE 208 IU/L (40-150); ANION GAP 44.5 mmol/L (8-16); BLOOD UREA NITROGEN 10 mg/dL (7-26); BUN/CREATININE RATIO 9 (6-25); CALCIUM 9.5 mg/dL (8.4-10.2); CARBON DIOXIDE 11 mmol/L (22-29); CHLORIDE 88 mmol/L (98-107); CREATINE KINASE 1463 IU/L (30-200); CREATININE, SERUM 1.07 mg/dL (0.72-1.25); EST GLOMERULAR FILTRATION RATE > 60 ML/MIN (60-); GLUCOSE 62 mg/dL (74-118); POTASSIUM 4.5 mmol/L (3.5-5.1); SODIUM 139 mmol/L (136-145)
[2019-12-04 19:51] LABS: BACTERIA,URINE FEW /HPF; EPITHELIAL CELLS,URINE FEW /LPF; WBC,URINE (MAN) 0-5 /HPF (0-5)
[2019-12-04 19:52] LABS: MUCUS,URINE FEW (RARE)
[2019-12-04 20:06] LABS: AMYLASE 7 U/L (25-125); LIPASE 191 U/L (8-78)
--- NOTE | 2019-12-04 20:06 | Emergency Department Note ---
History of Present Illnes History of Present Illness Chief Complaint: General Medicine Complaints History of Present Illness This is a 64 year old male PRESENTS TO ED WITH REPORT OF GENERALIZED WEAKNESS, N/V; PT REPORTS CONSUMES ALCOHOL DAILY ([place]IS[place]) HOWEVER, HAS NOT CONSUMED ALCOHOL IN 2 DAYS; SKIN WARM, DRY, JAUNDICE; . Historian: Patient Arrival Mode: [place] [employer] Required: No Onset (how long ago): day(s) (1) Location: ALL OVER Quality: GENERALIZED WEAKNESS, N/V Radiation: Reports non-radiation Severity: moderate Onset quality: gradual Duration (how long): day(s) (1) Timing of current episode: constant Progression: worsening Chronicity: new Context: Reports other (STOP DRINKING ETOH 2 DAYS AGO, PT DRINKS 1 LITER ETOH DAILY); Denies recent illness, Denies recent surgery Relieving factors: none Exacerbating factors: none Associated symptoms: Reports nausea/vomiting Treatments prior to arrival: none Past Medical/Family History Physician Review I have reviewed the patient's past medical and family history. Any updates have been documented here. Past Medical History Recent Fever: No Clinical Suspicion of Infectio: No New/Unexplained Change in Ment: No Past Medical History: Hypertension Other Medical History: ALCOHOLISM Past Surgical History: None Social History Smoking Cessation: Current every day smoker Counseling Performed: Yes Alcohol Use: Daily Any Illegal Drug Use: No Physically hurt or threatened: No Family History Family history of heart diseas: No Other Last Tetanus: UNKNOWN Any Pre-Existing Lines (PICC,: No Review of Systems Review of Systems Constitutional: Reports no symptoms EENTM: Reports no symptoms Cardiovascular: Reports no symptoms Respiratory: Reports no symptoms Gastrointestinal: Reports as per HPI Genitourinary: Reports no symptoms Musculoskeletal: Reports no symptoms Integumentary: Reports no symptoms Neurological: Reports as per HPI Psychological: Reports no symptoms Endocrine: Reports no symptoms Hematological/Lymphatic: Reports no symptoms Review of other systems: All other systems negative Physical Exam Related Data Allergies: Coded Allergies: No Known Allergies (Unverified , 03/11/19) Triage Vital Signs Vital Signs Date Time Temp Pulse Resp B/P (MAP) Pulse Ox O2 Delivery O2 Flow Rate FiO2 12/04/19 19:46 98.3 122 24 121/74 96 Room Air Vital signs reviewed: Yes Physical Exam CONSTITUTIONAL Constitutional: Present well-developed, Present well-nourished; Absent distressed HENT HENT: Present normocephalic, Present atraumatic, Present oropharynx clear/moist, Present nose normal HENT L/R: Present left ext ear normal, Present right ext ear normal EYES Eyes: Reports PERRL, Reports conjunctivae normal NECK Neck: Present ROM normal PULMONARY Pulmonary: Present effort normal, Present breath sounds normal CARDIOVASCULAR Cardiovascular: Present regular rhythm, Present heart sounds normal, Present capillary refill normal, Present tachycardia (126) GASTROINTESTINAL Abdominal: Present soft, Present nontender, Present bowel sounds normal GENITOURINARY Genitourinary: Present exam deferred SKIN Skin: Present warm, Present dry, Present jaundiced (SLIGHT) MUSCULOSKELETAL Musculoskeletal: Present ROM normal NEUROLOGICAL Neurological: Present alert, Present oriented x 3, Present no gross motor or sensory deficits PSYCHOLOGICAL Psychological: Present mood/affect normal, Present judgement normal Results Laboratory Result Diagram: 12/04/19190912/04/191909 Laboratory Laboratory Tests Test 12/04/19 19:46 12/04/19 19:30 12/04/19 19:10 Ammonia 123 UG/DL (31-123) Urine Color Josi (YELLOW) Urine Clarity Hazy (CLEAR) Urine pH 5.5 (5 - 7) Urine Specific [place] 1.025 (1.010-1.025) Urine Protein 2+ (NEGATIVE) Urine Glucose (UA) Negative (NEGATIVE) Urine Ketones >=160 (NEGATIVE) Urine Blood Large (NEGATIVE) Urine Nitrite Negative (NEGATIVE) Urine Bilirubin Moderate (NEGATIVE) Urine Urobilinogen 4 mg/dL (0.2 - 1) Urine Leukocyte Esterase Negative (NEGATIVE) Urine RBC 11-20 /HPF (0-5) Urine WBC 0-5 /HPF (0-5) Urine Epithelial Cells Few /LPF (NONE) Urine Bacteria Few /HPF (NONE) Urine Mucus Few (RARE) Urine Opiates Screen Negative (NEGATIVE) Urine Methadone Screen (NEGATIVE) Urine Barbiturates Screen Negative (NEGATIVE) Urine Phencyclidine Screen Negative (NEGATIVE) Urine Amphetamines Screen Negative (NEGATIVE) Urine Methamphetamines Screen Negative (NEGATIVE) Urine Benzodiazepines Screen Negative (NEGATIVE) Urine Cocaine Screen Negative (NEGATIVE) Urine Cannabinoids Screen Negative (NEGATIVE) White Blood Count 9.61 x10e3/uL (4.8-10.8) Red Blood Count 3.83 x10e6/uL (4.3-5.7) Hemoglobin 13.3 g/dL (14.0-18.0) Hematocrit 40.3 % (38.2-49.6) Mean Corpuscular Volume 105.2 fL (81-99) Mean Corpuscular Hemoglobin 34.7 pg (28-32) Mean Corpuscular Hemoglobin Concent 33.0 g/dL (31-35) Red Cell Distribution Width 17.6 % (11.7-14.4) Platelet Count 83 x10e3/uL (140-360) Neutrophils (%) (Auto) 83.2 % (38.7-80.0) Lymphocytes (%) (Auto) 6.0 % (18.0-39.1) Monocytes (%) (Auto) 10.1 % (4.4-11.3) Eosinophils (%) (Auto) 0.0 % (0.0-6.0) Basophils (%) (Auto) 0.2 % (0.0-1.0) Neutrophils # (Auto) 8.0 (2.1-6.9) Lymphocytes # (Auto) 0.6 (1.0-3.2) Monocytes # (Auto) 1.0 (0.2-0.8) Eosinophils # (Auto) 0.0 (0.0-0.4) Basophils # (Auto) 0.0 (0.0-0.1) Absolute Immature Granulocyte (auto 0.05 x10e3/uL (0-0.1) Sodium Level 139 mmol/L (136-145) Potassium Level 4.5 mmol/L (3.5-5.1) Chloride Level 88 mmol/L (98-107) Carbon Dioxide Level 11 mmol/L (22-29) Anion Gap 44.5 mmol/L (8-16) Blood Urea Nitrogen 10 mg/dL (7-26) Creatinine 1.07 mg/dL (0.72-1.25) Estimat Glomerular Filtration Rate > 60 ML/MIN (60-) BUN/Creatinine Ratio 9 (6-25) Glucose Level 62 mg/dL (74-118) Calcium Level 9.5 mg/dL (8.4-10.2) Total Bilirubin 6.6 mg/dL (0.2-1.2) Aspartate Amino Transf (AST/SGOT) 254 IU/L (5-34) Alanine Aminotransferase (ALT/SGPT) 49 IU/L (0-55) Alkaline Phosphatase 208 IU/L (40-150) Creatine Kinase 1463 IU/L (30-200) Creatine Kinase MB 5.90 ng/mL (0-5.0) Troponin I 0.011 ng/mL (0-0.300) Total Protein 7.4 g/dL (6.5-8.1) Albumin 3.6 g/dL (3.5-5.0) Globulin 3.8 g/dL (2.3-3.5) Albumin/Globulin Ratio 0.9 (0.8-2.0) Amylase Level 7 U/L (25-125) Lipase 191 U/L (8-78) Laboratory Tests Test 12/04/19 19:46 12/04/19 19:30 12/04/19 19:10 Urine Color Josi (YELLOW) Urine Clarity Hazy (CLEAR) Urine pH 5.5 (5 - 7) Urine Specific [place] 1.025 (1.010-1.025) Urine Protein 2+ (NEGATIVE) Urine Glucose (UA) Negative (NEGATIVE) Urine Ketones >=160 (NEGATIVE) Urine Blood Large (NEGATIVE) Urine Nitrite Negative (NEGATIVE) Urine Bilirubin Moderate (NEGATIVE) Urine Urobilinogen 4 mg/dL (0.2 - 1) Urine Leukocyte Esterase Negative (NEGATIVE) Urine RBC 11-20 /HPF (0-5) Urine WBC 0-5 /HPF (0-5) Urine Epithelial Cells Few /LPF (NONE) Urine Bacteria Few /HPF (NONE) Urine Mucus Few (RARE) Urine Opiates Screen Negative (NEGATIVE) Urine Methadone Screen (NEGATIVE) Urine Barbiturates Screen Negative (NEGATIVE) Urine Phencyclidine Screen Negative (NEGATIVE) Urine Amphetamines Screen Negative (NEGATIVE) Urine Methamphetamines Screen Negative (NEGATIVE) Urine Benzodiazepines Screen Negative (NEGATIVE) Urine Cocaine Screen Negative (NEGATIVE) Urine Cannabinoids Screen Negative (NEGATIVE) White Blood Count 9.61 x10e3/uL (4.8-10.8) Red Blood Count 3.83 x10e6/uL (4.3-5.7) Hemoglobin 13.3 g/dL (14.0-18.0) Hematocrit 40.3 % (38.2-49.6) Mean Corpuscular Volume 105.2 fL (81-99) Mean Corpuscular Hemoglobin 34.7 pg (28-32) Mean Corpuscular Hemoglobin Concent 33.0 g/dL (31-35) Red Cell Distribution Width 17.6 % (11.7-14.4) Platelet Count 83 x10e3/uL (140-360) Neutrophils (%) (Auto) 83.2 % (38.7-80.0) Lymphocytes (%) (Auto) 6.0 % (18.0-39.1) Monocytes (%) (Auto) 10.1 % (4.4-11.3) Eosinophils (%) (Auto) 0.0 % (0.0-6.0) Basophils (%) (Auto) 0.2 % (0.0-1.0) Neutrophils # (Auto) 8.0 (2.1-6.9) Lymphocytes # (Auto) 0.6 (1.0-3.2) Monocytes # (Auto) 1.0 (0.2-0.8) Eosinophils # (Auto) 0.0 (0.0-0.4) Basophils # (Auto) 0.0 (0.0-0.1) Absolute Immature Granulocyte (auto 0.05 x10e3/uL (0-0.1) Sodium Level 139 mmol/L (136-145) Potassium Level 4.5 mmol/L (3.5-5.1) Chloride Level 88 mmol/L (98-107) Carbon Dioxide Level 11 mmol/L (22-29) Anion Gap 44.5 mmol/L (8-16) Blood Urea Nitrogen 10 mg/dL (7-26) Creatinine 1.07 mg/dL (0.72-1.25) Estimat Glomerular Filtration Rate > 60 ML/MIN (60-) BUN/Creatinine Ratio 9 (6-25) Glucose Level 62 mg/dL (74-118) Calcium Level 9.5 mg/dL (8.4-10.2) Total Bilirubin 6.6 mg/dL (0.2-1.2) Aspartate Amino Transf (AST/SGOT) 254 IU/L (5-34) Alanine Aminotransferase (ALT/SGPT) 49 IU/L (0-55) Alkaline Phosphatase 208 IU/L (40-150) Creatine Kinase 1463 IU/L (30-200) Creatine Kinase MB 5.90 ng/mL (0-5.0) Troponin I 0.011 ng/mL (0-0.300) Total Protein 7.4 g/dL (6.5-8.1) Albumin 3.6 g/dL (3.5-5.0) Globulin 3.8 g/dL (2.3-3.5) Albumin/Globulin Ratio 0.9 (0.8-2.0) Lab results reviewed: Yes Imaging Imaging results reviewed: Yes Impressions elevated right hemidiaphragm o/w negative Procedures 12 Lead ECG Interpretation ECG Interpretation : ECG: ECG 1 [place]: Interpreted by ED physician Date: Dec 04, 2019 Time: 19:23 Rhythm: sinus tachycardia Rate: tachycardia BPM: 128 QRS axis: indeterminate ST segments normal: No (ARTIFACT PRESENT) T waves normal: No (ARTIFACT PRESENT) Additional Comments MOTION ARTIFACT PRESENT THROUGHOUT EKG Critical Care Time Total Critical Care Time (min): 31 Critcal care necessary due to: other (etoh withdrawal) Critcal care time spent by me: develop tx plan w patient/surrogate, interpret cardiac output measures, evaluation patient response to tx, examination of patient, obtaining hx from patient/surrogate, order/perform tx or interventions, order/review laboratory studies, re-evaluation of patient condition Assessment & Plan Medical Decision Making MDM PT WITH WEAKNESS, N/V ADN TACHYCARDIA ON ARRIVAL, PT IS LIKELY IN ETOH WITHDRAWAL CBC, CMP, AMYLASE, LIPASE, EKG, CARDIAC ENZYMES, AMMONIA, UA ORDERED TO EVAL FOR ELECTROLYTE ABNORMALITY, ARRHYTHMIA, MYOCARDIAL INFARCTION, RENAL INSUFFICIENCY BANANA BAG 1 LITER AT 150 CC PER HOUR IV ORDERED PROTONIX 40 MG IV ORDERED ZOFRAN 4 MG IV ORDERED LIBRIUM 25 MG PO ORDERED i spoke with dr oriana kelly and dr españa, admit icu Reassessment Reassessment time: 20:47 Reassessment pt still in nad, heart rate 120 at this time, pt will need icu admission for etoh withdrawal, Assessment & Plan Final Impression: (1) Alcohol withdrawal (2) Pancreatitis (3) Vomiting (4) Tachycardia (5) Total bilirubin, elevated Depart Disposition: ADMITTED Last Vital Signs Date Time Temp Pulse Resp B/P (MAP) Pulse Ox O2 Delivery O2 Flow Rate FiO2 12/04/19 19:57 125 21 116/90 95 Room Air 12/04/19 19:46 98.3 Medications in the ED Multivitamins 10 ml/Folic Acid 5 mg/Thiamine HCl 100 mg/Sodium Chloride 1,012 ml @ 150 mls/hr Q6H45M ONCE IV Last administered on 12/04/19at 19:42; Admin Dose 150 MLS/HR; Start 12/04/19 at 19:15; Stop 12/05/19 at 01:59 Ondansetron HCl 4 mg NOW STAT IV Last administered on 12/04/19at 19:40; Admin Dose 4 MG; Start 12/04/19 at 19:02; Stop 12/04/19 at 19:11; Status DC Pantoprazole Sodium 40 mg NOW STAT IV Last administered on 12/04/19at 19:40; Admin Dose 40 MG; Start 12/04/19 at 19:02; Stop 12/04/19 at 19:11; Status DC Chlordiazepoxide HCl 25 mg ONCE ONCE PO Last administered on 12/04/19at 19:40; Admin Dose 25 MG; Start 12/04/19 at 19:15; Stop 12/04/19 at 19:20; Status DC HEBER TOLENTINO MD Dec 04, 2019 20:06
[2019-12-04] MEDS ORDERED: DEXTROSE 50% SYRINGE 50 ML IV ONE ×2 (20:11→20:15)
--- NOTE | 2019-12-04 22:35 | Diagnostic Imaging Report ---
EXAMINATION: CHEST SINGLE (PORTABLE) INDICATION: ^weakness ^[id number] ^0 ^Y COMPARISON: 03/27/2019 FINDINGS: AP view TUBES and LINES: None. LUNGS: Lungs are well inflated. There is no evidence of pneumonia or pulmonary edema. PLEURA: No pleural effusion or pneumothorax. HEART AND MEDIASTINUM: The cardiomediastinal silhouette is unremarkable. BONES AND SOFT TISSUES: No acute osseous lesion. Again seen elevated right hemidiaphragm. UPPER ABDOMEN: No free air under the diaphragm. IMPRESSION: No acute thoracic abnormality. Signed by: Dr. Trell Conner MD on 12/04/2019 10:32 PM
--- OUTSIDE RECORDS SUMMARY | 2019-12-04 22:44 | XMS REPORT | Continuity of Care Document ---
Author Author [facility] t Organization [facility] Address [address] [place] [address] Phone Unavailable Care Team Providers Care Hostess Host Name Role Phone SUZANNE KHAN DO PCP Bartolome TOLENTINO Attphys Unavailable SWEET, Carissa FRANCE Attphys Unavailable LENNOX STYLES Attphys Unavailable REIS, SOUTERE Admphys Unavailable Payers Payer Name Policy Type Policy Number Effective Date Expiration Date [employer] [id number] 2019 00:00:00 [facility] Problems This patient has no known problems. Allergies, Adverse Reactions, Alerts This patient has no known allergies or adverse reactions. Medications This patient has no known medications. Procedures Procedure Date / Time Performed Performing Clinician Sour e Computed tomography of brain without radiopaque contrast 00:00:00 HEBER TOLENTINO [facility] CT of abdomen and pelvis without contrast 2019 00:00:00 LENNOX GARDNER [facility] Encounters Start Date/Time End Date/Time En[facility] ID Source 2019-03-27 06:26:00 2019-03-27 12:02:00 Departed Emergency Room 1 EDILMA GUSTFASON [facility] [id number] [facility] 2019 13:39:00 2019 21:20:00 Departed Emergency Room 1 LENNOX STYLES [facility] [id number] [facility] Results Test Description Test Time Test Comments Results Result Comments Source CHEST SINGLE (PORTABLE) 2019-12-04 22:30:00 [facility] 1955 Sex: M [facility] [address] [address] Patient Name: MUKESH HILLIARD JR MR #: [id number] : 1955 Age/Sex: 64/M Req #: [id number] Adm Physician: Ordered by: HEBER TOLENTINO MD Report #: [id number] Location: ER Room/Bed: Procedure: [id number] DX/CHEST SINGLE (PORTABLE) Exam Date: 12/04/19 Exam Time: 2149 REPORT STATUS: Signed EXAMINATION: CHEST SINGLE (PORTABLE) INDICATION: weakness [id number] Y COMPARISON: 03/27/2019 FINDINGS: AP view TUBES and LINES: None. LUNGS: Lungs are well inflated. There is no evidence of pneumonia or pulmonary edema. PLEURA: No pleural effusion or pneumothorax. HEART AND MEDIASTINUM: The cardiomediastinal silhouette is unremarkable. BONES AND SOFT TISSUES: No acute osseous lesion. Again seen elevated right hemidiaphragm. UPPER ABDOMEN: No free air under the diaphragm. IMPRESSION: No acute thoracic abnormality. Signed by: Dr. Trell Villasenor MD on 12/04/2019 10:32 PM Dictated By: TRELL VILLASENOR MD 31 Transcribed By: DEANDRE on 12/04/192231 COPY TO: HEBER TOLENTINO MD CT BRAIN WO 2019-03-27 09:11:00 [address] [address] Patient Name: MUKESH HILLIARD JR MR #: [id number] : 1955 Age/Sex: 64/M Req #: [id number] Adm Physician: Ordered by: HEBER TOLENTINO MD Report #: [id number] Location: ER Room/Bed: Procedure: [id number] CT/CT BRAIN WO Exam Date: 03/27/19 Exam [...] TOLENTINO MD CHEST SINGLE (PORTABLE) 2019-03-27 08:56:[address] [address] Patient Name: MUKESH HILLIARD JR MR #: [id number] : 1955 Age/Sex: 64/M Req #: [id number] Adm Physician: Ordered by: HEBER TOLENTINO MD Report #: [id number] Location: ER Room/Bed: Procedure: [id number] DX/CHEST SINGLE (PORTABLE) Exam Date: Exam Time: [...] (test code = 5643-2) 289.6 0.0-10.0 [facility] Wqnwa1247-78-18 08:53:00* Test Item Value Reference Range Interpretation Comments Sodium Level (test code = 2951-2) 139 136-145 [facility] CenterPotassium Drxfn6264-45-83 08:53:00* Test Item Value Reference Range Interpretation Comments Potassium Level (test code = 2823-3) 4.0 3.5-5.1 [facility] CenterChloride Uujim6572-00-19 08:53:00* Test Item Value Reference Range Interpretation Comments Chloride Level (test code = 2075-0) 96 98-107 L [facility] CenterCarbon Dioxide Tywfs8029-39-99 08:53:00* Test Item Value Reference Range Interpretation Comments Carbon Dioxide Level (test code = 2028-9) 25 22-29 [facility] CenterAnion Rcf8607-26-99 08:53:00* Test Item Value Reference Range Interpretation Comments Anion Gap (test code = 85836-2) 22.0 8-16 H [facility] CenterBlood Urea Tpynovwj9586-52-42 08:53:00* Test Item Value Reference Range Interpretation Comments Blood Urea Nitrogen (test code = 3094-0) 8 7-26 [facility] CenterCreatinine2020-02-08 08:53:00* Test Item Value Reference Range Interpretation Comments Creatinine (test code = 2160-0) 0.99 0.72-1.25 [facility] CenterBUN/Creatinine Vcmjv1615-57-75 08:53:00* Test Item Value Reference Range Interpretation Comments BUN/Creatinine Ratio (test code = 3097-3) 8 6-25 [facility] CenterEstimat Glomerular Filtration Rate 2019-03-27 08:53:00* Test Item Value Reference Range Interpretation Comments Estimat Glomerular Filtration Rate (test code = 059293404) > 60 >60 Ranges were taken from the National Kidney Disease Education Program and the [facility] Kidney Foundation literature.Reference ranges:60 or greater: Tzgmub32-41 ( for 3 consecutive months): Chronic kidney disease 15 or less: Kidney failureLamb Healthcare CenterGlucose Qkyqm9381-30-46 08:53:00* Test Item Value Reference Range Interpretation Comments Glucose Level (test code = RRE5272) 87 74-118 [facility] CenterCalcium Pxbhs5400-35-20 08:53:00* Test Item Value Reference Range Interpretation Comments Calcium Level (test code = 49001-6) 9.4 8.4-10.2 [facility] CenterTotal Uzhrcvbta2072-56-32 08:53:00* Test Item Value Reference Range Interpretation Comments Total Bilirubin (test code = 1975-2) 0.3 0.2-1.2 [facility] CenterAspartate Amino Transf (AST/SGOT) 2019-03-27 08:53:00* Test Item Value Reference Range Interpretation Comments Aspartate Amino Transf (AST/SGOT) (test code = Aspartate Amino Transf (AST/SGOT)) 46 5-34 H [facility] CenterAlanine Aminotransferase (ALT/SGPT) 2019-03-27 08:53:00* Test Item Value Reference Range Interpretation Comments Alanine Aminotransferase (ALT/SGPT) (test code = 1742-6) 20 0-55 [facility] CenterTotal Jyusebp9468-66-21 08:53:00* Test Item Value Reference Range Interpretation Comments Total Protein (test code = 2885-2) 7.1 6.5-8.1 [facility] CenterAlbumin2020-02-08 08:53:00* Test Item Value Reference Range Interpretation Comments Albumin (test code = 1751-7) 3.7 3.5-5.0 [facility] CenterGlobulin2020-02-08 08:53:00* Test Item Value Reference Range Interpretation Comments Globulin (test code = 00701-3) 3.4 2.3-3.5 [facility] CenterAlbumin/Globulin Plrix3688-83-09 08:53:00 * Test Item Value Reference Range Interpretation Comments Albumin/Globulin Ratio (test code = 1759-0) 1.1 0.8-2.0 [facility] CenterAlkaline Kspfcpeksxr8277-86-45 08:53:00* Test Item Value Reference Range Interpretation Comments Alkaline Phosphatase (test code = 6768-6) 90 40-150 [facility] CenterUrine CIC6752-49-86 08:28:00* Test Item Value Reference Range Interpretation Comments Urine WBC (test code = 5821-4) 0-5 0-5 [facility] CenterUrine OPN7600-34-86 08:28:00* Test Item Value Reference Range Interpretation Comments Urine RBC (test code = 42224-2) 0-5 0-5 [facility] CenterUrine Jhopyzja1736-85-30 08:28:00* Test Item Value Reference Range Interpretation Comments Urine Bacteria (test code = 30569-9) RARE NONE [facility] CenterUrine Epithelial Rwhjz9795-83-16 08:28:00 * Test Item Value Reference Range Interpretation Comments Urine Epithelial Cells (test code = 76814-3) FEW NONE [facility] CenterWhite Blood Cbluf4977-07-29 08:25:00* Test Item Value Reference Range Interpretation Comments White Blood Count (test code = 6690-2) 4.15 4.8-10.8 L [facility] CenterRed Blood Wabtx6947-15-49 08:25:00* Test Item Value Reference Range Interpretation Comments Red Blood Count (test code = 789-8) 3.01 4.3-5.7 L [facility] CenterHemoglobin2020-02-08 08:25:00* Test Item Value Reference Range Interpretation Comments Hemoglobin (test code = 60997-1) 10.5 14.0-18.0 L [facility] CenterHematocrit2020-02-08 08:25:00* Test Item Value Reference Range Interpretation Comments Hematocrit (test code = 4544-3) 31.3 38.2-49.6 L [facility] CenterMean Corpuscular Blbabq2690-78-17 08:25:00* Test Item Value Reference Range Interpretation Comments Mean Corpuscular Volume (test code = 787-2) 104.0 81-99 H [facility] CenterMean Corpuscular Ihhudokteb7322-09-68 08:25:00* Test Item Value Reference Range Interpretation Comments Mean Corpuscular Hemoglobin (test code = 785-6) 34.9 28-32 H [facility] CenterMean Corpuscular Hemoglobin Concent 2019-03-27 08:25:00* Test Item Value Reference Range Interpretation Comments Mean Corpuscular Hemoglobin Concent (test code = 786-4) 33.5 31-35 [facility] CenterRed Cell Distribution Feiyn1441-30-79 08:25:00* Test Item Value Reference Range Interpretation Comments Red Cell Distribution Width (test code = 04975-8) 15.5 11.7 -14.4 H [facility] CenterPlatelet Dayqe2868-50-80 08:25:00* Test Item Value Reference Range Interpretation Comments Platelet Count (test code = 777-3) 271 140-360 [facility] CenterNeutrophils (%) (Auto)2019-03-27 08:25:00 * Test Item Value Reference Range Interpretation Comments Neutrophils (%) (Auto) (test code = 66319-9) 44.3 38.7-80.0 [facility] CenterLymphocytes (%) (Auto)2019-03-27 08:25:00 * Test Item Value Reference Range Interpretation Comments Lymphocytes (%) (Auto) (test code = 736-9) 31.3 18.0-39.1 [facility] CenterMonocytes (%) (Auto)2019-03-27 08:25:00* Test Item Value Reference Range Interpretation Comments Monocytes (%) (Auto) (test code = 5905-5) 14.0 4.4-11.3 H [facility] CenterEosinophils (%) (Auto)2019-03-27 08:25:00 * Test Item Value Reference Range Interpretation Comments Eosinophils (%) (Auto) (test code = 713-8) 8.7 0.0-6.0 H [facility] CenterBasophils (%) (Auto)2019-03-27 08:25:00* Test Item Value Reference Range Interpretation Comments Basophils (%) (Auto) (test code = 706-2) 1.0 0.0-1.0 [facility] CenterIM GRANULOCYTES %2019-03-27 08:25:00* Test Item Value Reference Range Interpretation Comments IM GRANULOCYTES % (test code = IM GRANULOCYTES %) 0.7 0.0- 1.0 [facility] CenterNeutrophils # (Auto)2019-03-27 08:25:00* Test Item Value Reference Range Interpretation Comments Neutrophils # (Auto) (test code = 751-8) 1.8 2.1-6.9 L [facility] CenterLymphocytes # (Auto)2019-03-27 08:25:00* Test Item Value Reference Range Interpretation Comments Lymphocytes # (Auto) (test code = 77720-2) 1.3 1.0-3.2 [facility] CenterMonocytes # (Auto)2019-03-27 08:25:00* Test Item Value Reference Range Interpretation Comments Monocytes # (Auto) (test code = 742-7) 0.6 0.2-0.8 [facility] CenterEosinophils # (Auto)2019-03-27 08:25:00* Test Item Value Reference Range Interpretation Comments Eosinophils # (Auto) (test code = 711-2) 0.4 0.0-0.4 [facility] CenterBasophils # (Auto)2019-03-27 08:25:00* Test Item Value Reference Range Interpretation Comments Basophils # (Auto) (test code = 704-7) 0.0 0.0-0.1 [facility] CenterAbsolute Immature Granulocyte (auto 2019-03-27 08:25:00* Test Item Value Reference Range Interpretation Comments Absolute Immature Granulocyte (auto (cecile t code = Absolute Immature Granulocyte (auto) 0.03 0-0.1 [facility] CenterUrine Urour8701-07-38 08:12:00* Test Item Value Reference Range Interpretation Comments Urine Color (test code = 5778-6) YELLOW YELLOW [facility] CenterUrine Zkhezif7566-29-87 08:12:00* Test Item Value Reference Range Interpretation Comments Urine Clarity (test code = 57303-8) CLEAR CLEAR [facility] CenterUrine Specific Swxwomx4785-82-98 08:12:00 * Test Item Value Reference Range Interpretation Comments Urine Specific [place] (test code = 5811-5) 1.010 1.010-1.02 5 [facility] CenterUrine sC7331-90-22 08:12:00* Test Item Value Reference Range Interpretation Comments Urine pH (test code = 76163-5) 5.5 5-7 [facility] CenterUrine Leukocyte Msvizshp1675-83-63 08:12:00* Test Item Value Reference Range Interpretation Comments Urine Leukocyte Esterase (test code = 5799-2) NEGATIVE NEGATIVE [facility] CenterUrine Vspahqh7874-26-95 08:12:00* Test Item Value Reference Range Interpretation Comments Urine Nitrite (test code = 02513-9) NEGATIVE NEGATIVE [facility] CenterUrine Srpotrx9605-86-05 08:12:00* Test Item Value Reference Range Interpretation Comments Urine Protein (test code = 5804-0) NEGATIVE NEGATIVE [facility] CenterUrine Glucose (UA)2019-03-27 08:12:00* Test Item Value Reference Range Interpretation Comments Urine Glucose (UA) (test code = 2349-9) NEGATIVE NEGATIVE [facility] CenterUrine Xohijot5469-30-67 08:12:00* Test Item Value Reference Range Interpretation Comments Urine Ketones (test code = 03336-1) NEGATIVE NEGATIVE [facility] CenterUrine Opiates Bsldno1968-26-36 08:12:00* Test Item Value Reference Range Interpretation Comments Urine Opiates Screen (test code = 66427-3) NEGATIVE NEGATIVE ALL TESTS PERFORMED MANUALLY ON [employer] TOX/SEE TESTLamb Healthcare CenterUrine Barbiturates Pcdety2591-70-05 08:12:00* Test Item Value Reference Range Interpretation Comments Urine Barbiturates Screen (test code = 787769889) NEGATIVE NEGA TIVE [facility] CenterUrine Phencyclidine Kgprpb6743-53-49 08:12:00* Test Item Value Reference Range Interpretation Comments Urine Phencyclidine Screen (test code = 35456-4) NEGATIVE NEGAT GRICELDA [facility] CenterUrine Amphetamines Ujwqke0574-09-16 08:12:00* Test Item Value Reference Range Interpretation Comments Urine Amphetamines Screen (test code = 21150-2) NEGATIVE NEGATI VE [facility] CenterUrine Methamphetamines Zbcrcz6385-53-96 08:12:00* Test Item Value Reference Range Interpretation Comments Urine Methamphetamines Screen (test code = Urine Metha mphetamines Screen) NEGATIVE NEGATIVE [facility] CenterUrine Benzodiazepines Jiiuei7155-46-97 08:12:00* Test Item Value Reference Range Interpretation Comments Urine Benzodiazepines Screen (test code = 53131-7) NEGATIVE NEG ATIVE [facility] CenterUrine Cocaine Vtdlsf4649-44-48 08:12:00* Test Item Value Reference Range Interpretation Comments Urine Cocaine Screen (test code = 3398-5) NEGATIVE NEGATIVE [facility] CenterUrine Cannabinoids Mwcdfm1056-09-54 08:12:00* Test Item Value Reference Range Interpretation Comments Urine Cannabinoids Screen (test code = 59335-1) NEGATIVE NEGATI VE THESE RESULTS ARE FOR MEDICAL TREATMENT ONLYTHIS REPORT CONTAINS UNCONFIR MED SCREENING RESULTS*POSITIVE RESULTS WILL BE CONFIRMED BY REFERENCE LAB UPON R EQUEST CUT-OFFDRUG CLASS CONCENTRATION ng/mLAmphetamines 1000Methamphetamines 1000Cocaine 300Opiate 300Phencyc lidine 25Cannabinoid 50Barbiturates 300Benzodiazepine 300Methadone 300[facility]one Hoqwcn6780-67-37 08:12:00* Test Item Value Reference Range Interpretation Comments Urine Methadone Screen (test code = 88481-4) NEGATIVE NEGATIVE THESE RESULTS ARE FOR MEDICAL TREATMENT ONLYTHIS REPORT CONTAINS UNCONFIR MED SCREENING RESULTS*POSITIVE RESULTS WILL BE CONFIRMED BY REFERENCE LAB UPON R EQUEST CUT-OFFDRUG CLASS CONCENTRATION ng/mLAmphetamines 1000Methamphetamines 1000Cocaine Metabolite 300Opiate 300Phencyc lidine 25Cannabinoid 50Barbiturates 300Benzodiazepine 300Methadone 300[facility] Hospital[facility] Ktxsxnyhlobv8719-10-15 08:12:00* Test Item Value Reference Range Interpretation Comments Urine Urobilinogen (test code = 67068-4) 0.2 0.2-1 [facility] CenterUrine Rdzwnktjp7183-71-97 08:12:00* Test Item Value Reference Range Interpretation Comments Urine Bilirubin (test code = 1978-6) NEGATIVE NEGATIVE [facility] CenterUrine Zghki2722-25-25 08:12:00* Test Item Value Reference Range Interpretation Comments Urine Blood (test code = 22121-0) TRACE NEGATIVE H [facility] CenterBlood Gbwfhhk5860-23-79 14:59:00* Test Item Value Reference Range Interpretation Comments Blood Culture (test code = 68071276) NO GROWTH AFTER 5 DAYS, FINAL REPORT [facility] CenterUrine Ygjwh6620-54-94 19:29:00* Test Item Value Reference Range Interpretation Comments Urine Color (test code = 5778-6) YELLOW YELLOW [facility] CenterUrine Zmqkrgq8261-23-21 19:29:00* Test Item Value Reference Range Interpretation Comments Urine Clarity (test code = 09157-7) CLEAR CLEAR [facility] CenterUrine Specific Pzwvqfk1904-41-24 19:29:00 * Test Item Value Reference Range Interpretation Comments Urine Specific [place] (test code = 5811-5) 1.015 1.010-1.02 5 [facility] CenterUrine nX2728-64-69 19:29:00* Test Item Value Reference Range Interpretation Comments Urine pH (test code = 03606-2) 5.5 5-7 [facility] CenterUrine Leukocyte Jwdksckr6789-42-41 19:29:00* Test Item Value Reference Range Interpretation Comments Urine Leukocyte Esterase (test code = 5799-2) NEGATIVE NEGATIVE [facility] CenterUrine Eiayukv8211-18-46 19:29:00* Test Item Value Reference Range Interpretation Comments Urine Nitrite (test code = 68437-0) NEGATIVE NEGATIVE [facility] CenterUrine Ocjessl6794-91-55 19:29:00* Test Item Value Reference Range Interpretation Comments Urine Protein (test code = 5804-0) TRACE NEGATIVE H [facility] CenterUrine Glucose (UA)2019 19:29:00* Test Item Value Reference Range Interpretation Comments Urine Glucose (UA) (test code = 2349-9) NEGATIVE NEGATIVE [facility] CenterUrine Lkzadwz6678-24-14 19:29:00* Test Item Value Reference Range Interpretation Comments Urine Ketones (test code = 53295-0) TRACE NEGATIVE H [facility] CenterUrine Tmqauxlrevzp4551-21-34 19:29:00* Test Item Value Reference Range Interpretation Comments Urine Urobilinogen (test code = 14450-7) 0.2 0.2-1 [facility] CenterUrine Jytnwkdfi4343-61-79 19:29:00* Test Item Value Reference Range Interpretation Comments Urine Bilirubin (test code = 1978-6) NEGATIVE NEGATIVE [facility] CenterUrine Frmie9489-85-56 19:29:00* Test Item Value Reference Range Interpretation Comments Urine Blood (test code = 84376-6) NEGATIVE NEGATIVE [facility] CenterUrine TTK7987-85-96 19:29:00* Test Item Value Reference Range Interpretation Comments Urine WBC (test code = 5821-4) NONE 0-5 [facility] CenterUrine SIM8094-32-89 19:29:00* Test Item Value Reference Range Interpretation Comments Urine RBC (test code = 38284-0) NONE 0-5 [facility] CenterUrine Diwtchha6993-26-36 19:29:00* Test Item Value Reference Range Interpretation Comments Urine Bacteria (test code = 74509-4) NONE NONE [facility] CenterUrine Epithelial Zkysx0262-66-37 19:29:00 * Test Item Value Reference Range Interpretation Comments Urine Epithelial Cells (test code = 03113-6) RARE NONE [facility] CenterCT ABDOMEN/PELVIS DX5875-17-71 16:14:00 [facility] [address] [address] Patient Name: MUKESH HILLIARD MR #: [id number] : 1955 Age/Sex: 64/M Req #: [id number] Adm Physician: Ordered by: LENNOX STYLES DO Report #: [id number] Location: ER Room/Bed: Procedure: [id number] C T/CT ABDOMEN/PELVIS WO Exam Date: 03/11/19 [...] 03/11/191648 C OPY TO: LENNOX STYLES DO Zcwcla8120-60-81 15:59:00* Test Item Value Reference Range Interpretation Comments Lipase (test code = 3040-3) 148 8-78 H [facility] CenterLipase2020-01-23 15:59:00* Test Item Value Reference Range Interpretation Comments Lipase (test code = 3040-3) 148 8-78 H [facility] CenterCreatine Kinase NW5439-24-34 15:34:00* Test Item Value Reference Range Interpretation Comments Creatine Kinase MB (test code = 44953-3) 1.80 0-5.0 [facility] CenterTroponin U3461-50-53 15:34:00* Test Item Value Reference Range Interpretation Comments Troponin I (test code = KWB6672) 0.098 0-0.300 [facility] CenterCreatine Kinase RM8036-25-05 15:34:00* Test Item Value Reference Range Interpretation Comments Creatine Kinase MB (test code = 12340-5) 1.80 0-5.0 [facility] CenterTroponin D5922-32-96 15:34:00* Test Item Value Reference Range Interpretation Comments Troponin I (test code = WBQ8431) 0.098 0-0.300 [facility] Station[facility] Tdpet9151-08-26 15:29:00* Test Item Value Reference Range Interpretation Comments Sodium Level (test code = 2951-2) 132 136-145 L [facility] CenterPotassium Ameny5562-77-13 15:29:00* Test Item Value Reference Range Interpretation Comments Potassium Level (test code = 2823-3) 3.8 3.5-5.1 [facility] CenterChloride Qdedo3648-21-37 15:29:00* Test Item Value Reference Range Interpretation Comments Chloride Level (test code = 2075-0) 83 98-107 L [facility] CenterCarbon Dioxide Jjuup3260-72-88 15:29:00* Test Item Value Reference Range Interpretation Comments Carbon Dioxide Level (test code = 2028-9) 30 22-29 H [facility] CenterAnion Geg3830-59-80 15:29:00* Test Item Value Reference Range Interpretation Comments Anion Gap (test code = 97678-1) 22.8 8-16 H [facility] CenterBlood Urea Bcsyymif8411-46-59 15:29:00* Test Item Value Reference Range Interpretation Comments Blood Urea Nitrogen (test code = 3094-0) 30 7-26 H [facility] CenterCreatinine2020-01-23 15:29:00* Test Item Value Reference Range Interpretation Comments Creatinine (test code = 2160-0) 1.98 0.72-1.25 H [facility] CenterBUN/Creatinine Qdflr4609-48-64 15:29:00* Test Item Value Reference Range Interpretation Comments BUN/Creatinine Ratio (test code = 3097-3) 15 6-25 [facility] CenterEstimat Glomerular Filtration Rate 2019 15:29:00* Test Item Value Reference Range Interpretation Comments Estimat Glomerular Filtration Rate (test code = 790687061) 34 >60 L Ranges were taken from the National Kidney Disease Education Program and the [facility] Foundation literature.Reference ranges:60 or greater: Zuwhat61-69 ( for 3 consecutive months): Chronic kidney disease 15 or less: Kidney failureLamb Healthcare CenterGlucose Kcfwz3192-71-45 15:29:00* Test Item Value Reference Range Interpretation Comments Glucose Level (test code = UFT7447) 112 74-118 [facility] CenterCalcium Qyyfu1574-18-91 15:29:00* Test Item Value Reference Range Interpretation Comments Calcium Level (test code = 70414-6) 9.7 8.4-10.2 [facility] CenterTotal Axelcrhee9762-53-80 15:29:00* Test Item Value Reference Range Interpretation Comments Total Bilirubin (test code = 1975-2) 0.6 0.2-1.2 [facility] CenterAspartate Amino Transf (AST/SGOT) 2019 15:29:00* Test Item Value Reference Range Interpretation Comments Aspartate Amino Transf (AST/SGOT) (test code = Aspartate Amino Transf (AST/SGOT)) 37 5-34 H [facility] CenterAlanine Aminotransferase (ALT/SGPT) 2019 15:29:00* Test Item Value Reference Range Interpretation Comments Alanine Aminotransferase (ALT/SGPT) (test code = 1742-6) 24 0-55 [facility] CenterTotal Wqajfhr6664-06-31 15:29:00* Test Item Value Reference Range Interpretation Comments Total Protein (test code = 2885-2) 6.9 6.5-8.1 [facility] CenterAlbumin2020-01-23 15:29:00* Test Item Value Reference Range Interpretation Comments Albumin (test code = 1751-7) 3.9 3.5-5.0 [facility] CenterGlobulin2020-01-23 15:29:00* Test Item Value Reference Range Interpretation Comments Globulin (test code = 13739-7) 3.0 2.3-3.5 [facility] CenterAlbumin/Globulin Rnzqn6297-76-05 15:29:00 * Test Item Value Reference Range Interpretation Comments Albumin/Globulin Ratio (test code = 1759-0) 1.3 0.8-2.0 [facility] CenterAlkaline Zxgkqeixlnw0550-87-08 15:29:00* Test Item Value Reference Range Interpretation Comments Alkaline Phosphatase (test code = 6768-6) 76 40-150 [facility] CenterCreatine Kcexvb7608-66-16 15:29:00* Test Item Value Reference Range Interpretation Comments Creatine Kinase (test code = 2157-6) 58 30-200 [facility] CenterCreatine Pjeata7793-71-56 15:29:00* Test Item Value Reference Range Interpretation Comments Creatine Kinase (test code = 2157-6) 58 30-200 [facility] CenterLactic Acid Bzrnh4070-24-30 15:23:00* Test Item Value Reference Range Interpretation Comments Lactic Acid Level (test code = Lactic Acid Level) 2.0 0.5- 2.0 [facility] CenterLactic Acid Tcelg9304-53-72 15:23:00* Test Item Value Reference Range Interpretation Comments Lactic Acid Level (test code = Lactic Acid Level) 2.0 0.5- 2.0 [facility] [id number] 15:06:00* Test Item Value Reference Range Interpretation Comments White Blood Count (test code = 6690-2) 8.20 4.8-10.8 [facility] [id number] 15:06:00* Test Item Value Reference Range Interpretation Comments Red Blood Count (test code = 789-8) 3.22 4.3-5.7 L [facility]Hemoglobin2020-01-23 15:06:00* Test Item Value Reference Range Interpretation Comments Hemoglobin (test code = 44198-6) 11.0 14.0-18.0 L [facility]Hematocrit2020-01-23 15:06:00* Test Item Value Reference Range Interpretation Comments Hematocrit (test code = 4544-3) 31.8 38.2-49.6 L [facility] CenterMean Corpuscular [id number] 15:06:00* Test Item Value Reference Range Interpretation Comments Mean Corpuscular Volume (test code = 787-2) 98.8 81-99 [facility] Corpuscular [id number] 15:06:00* Test Item Value Reference Range Interpretation Comments Mean Corpuscular Hemoglobin (test code = 785-6) 34.2 28-32 H [facility] Corpuscular Hemoglobin Concent 2019 15:06:00* Test Item Value Reference Range Interpretation Comments Mean Corpuscular Hemoglobin Concent (test code = 786-4) 34.6 31-35 [facility] Cell Distribution [id number] 15:06:00* Test Item Value Reference Range Interpretation Comments Red Cell Distribution Width (test code = 47025-2) 12.7 11.7 -14.4 [facility] CenterPlatelet [id number] 15:06:00* Test Item Value Reference Range Interpretation Comments Platelet Count (test code = 777-3) 265 140-360 [facility] CenterNeutrophils (%) (Auto)2019 15:06:00 * Test Item Value Reference Range Interpretation Comments Neutrophils (%) (Auto) (test code = 73312-5) 72.2 38.7-80.0 [facility] CenterLymphocytes (%) (Auto)2019 15:06:00 * Test Item Value Reference Range Interpretation Comments Lymphocytes (%) (Auto) (test code = 736-9) 15.0 18.0-39.1 L [facility] CenterMonocytes (%) (Auto)2019 15:06:00* Test Item Value Reference Range Interpretation Comments Monocytes (%) (Auto) (test code = 5905-5) 8.5 4.4-11.3 [facility] CenterEosinophils (%) (Auto)2019 15:06:00 * Test Item Value Reference Range Interpretation Comments Eosinophils (%) (Auto) (test code = 713-8) 3.0 0.0-6.0 [facility] CenterBasophils (%) (Auto)2019 15:06:00* Test Item Value Reference Range Interpretation Comments Basophils (%) (Auto) (test code = 706-2) 0.7 0.0-1.0 [facility] CenterIM GRANULOCYTES %2019 15:06:00* Test Item Value Reference Range Interpretation Comments IM GRANULOCYTES % (test code = IM GRANULOCYTES %) 0.6 0.0- 1.0 [facility] CenterNeutrophils # (Auto)2019 15:06:00* Test Item Value Reference Range Interpretation Comments Neutrophils # (Auto) (test code = 751-8) 5.9 2.1-6.9 [facility] CenterLymphocytes # (Auto)2019 15:06:00* Test Item Value Reference Range Interpretation Comments Lymphocytes # (Auto) (test code = 08143-3) 1.2 1.0-3.2 [facility] CenterMonocytes # (Auto)2019 15:06:00* Test Item Value Reference Range Interpretation Comments Monocytes # (Auto) (test code = 742-7) 0.7 0.2-0.8 [facility] CenterEosinophils # (Auto)2019 15:06:00* Test Item Value Reference Range Interpretation Comments Eosinophils # (Auto) (test code = 711-2) 0.3 0.0-0.4 [facility] CenterBasophils # (Auto)2019 15:06:00* Test Item Value Reference Range Interpretation Comments Basophils # (Auto) (test code = 704-7) 0.1 0.0-0.1 [facility] CenterAbsolute Immature Granulocyte (auto 2019 15:06:00* Test Item Value Reference Range Interpretation Comments Absolute Immature Granulocyte (auto (cecile t code = Absolute Immature Granulocyte (auto) 0.05 0-0.1 [facility]
[2019-12-04] MEDS ORDERED: ONDANSETRON HCL INJ 2MG/ML 2ML 2 MG/ML VIAL IV PRN (22:45)
[2019-12-04 23:00] VITALS: BP 132/98
[2019-12-04 23:19] VITALS: BP 132/98
[2019-12-04] MEDS: CHLORDIAZEPOXIDE HCL 25 MG CAP PO SCH (23:35)
[2019-12-04] MEDS: SODIUM CHLORIDE 0.9% 1000ML 1,000 ML IV SCH (23:35)
[2019-12-05] VITALS (21 sets, daily range): BP systolic 102–144; BP diastolic 68–96
[2019-12-05 05:27] LABS: BASOPHILS % 0.2 % (0.0-1.0); HEMATOCRIT 31.3 % (38.2-49.6); HEMOGLOBIN 10.8 g/dL (14.0-18.0); LYMPHOCYTES # (AUTO) 0.6 (1.0-3.2); LYMPHOCYTES % 9.9 % (18.0-39.1); MEAN CORPUSCULAR HEMOGLOBIN 34.4 pg (28-32); MEAN CORPUSCULAR HGB CONC 34.5 g/dL (31-35); MEAN CORPUSCULAR VOLUME 99.7 fL (81-99); MONOCYTES # (AUTO) 0.7 (0.2-0.8); MONOCYTES % 11.7 % (4.4-11.3); NEUTROPHILS # (AUTO) 4.3 (2.1-6.9); NEUTROPHILS % 77.8 % (38.7-80.0); PLATELET COUNT 51 x10e3/uL (140-360); RED BLOOD COUNT 3.14 x10e6/uL (4.3-5.7); RED CELL DISTRIBUTION WIDTH 16.9 % (11.7-14.4)
[2019-12-05] MEDS: SODIUM CHLORIDE 0.9% 1000ML 1,000 ML IV SCH (05:54)
[2019-12-05] MEDS: CHLORDIAZEPOXIDE HCL 25 MG CAP PO SCH (05:54)
--- NOTE | 2019-12-05 06:00 | NUR ---
MD Maher's office called to report K 2.9. Awaiting call back at this time.
[2019-12-05 06:02] LABS: ALANINE AMINOTRANSFERASE 38 IU/L (0-55); ALBUMIN 2.9 g/dL (3.5-5.0); ALBUMIN/GLOBULIN RATIO 1.1 (0.8-2.0); ALKALINE PHOSPHATASE 154 IU/L (40-150); AMYLASE 16 U/L (25-125); ANION GAP 22.9 mmol/L (8-16); BLOOD UREA NITROGEN 13 mg/dL (7-26); BUN/CREATININE RATIO 12 (6-25); CALCIUM 8.3 mg/dL (8.4-10.2); CARBON DIOXIDE 24 mmol/L (22-29); CHLORIDE 92 mmol/L (98-107); CREATININE, SERUM 1.08 mg/dL (0.72-1.25); EST GLOMERULAR FILTRATION RATE > 60 ML/MIN (60-); GLUCOSE 143 mg/dL (74-118); LIPASE 725 U/L (8-78); MAGNESIUM 1.3 MG/DL (1.3-2.1); PHOSPHORUS 1.6 MG/DL (2.3-4.7); SODIUM 136 mmol/L (136-145)
[2019-12-05 06:11] LABS: POTASSIUM 2.9 mmol/L (3.5-5.1)
[2019-12-05] MEDS ORDERED: POTASSIUM CHLORIDE 20 MEQ TAB CR PO STA (08:38)
[2019-12-05] MEDS ORDERED: POTASSIUM PHOSPHATE IV SCH (09:15)
[2019-12-05] MEDS ORDERED: SODIUM CHLORIDE IV SCH (09:15)
[2019-12-05] MEDS ORDERED: THIAMINE HCL INJ 100 MG/ML 2ML VIAL IV ONE (09:15)
[2019-12-05] MEDS ORDERED: VANCOMYCIN 1GM/NS 250 ML 250 ML IV ONE (09:30)
[2019-12-05] MEDS: POTASSIUM CHLORIDE 20 MEQ TAB CR PO SCH ×3 (10:00→15:41)
[2019-12-05 10:20] LABS: INR 0.94
[2019-12-05 10:21] LABS: PARTIAL THROMBOPLASTIN TIME 29.9 seconds (23.8-35.5)
--- NOTE | 2019-12-05 10:41 | Consultation ---
DATE OF CONSULTATION: Pulmonary Critical Care Consultation CHIEF COMPLAINT: Confusion, tachycardia, and possible alcohol withdrawal. HISTORY OF PRESENT ILLNESS: The patient is a 64-year-old man. He has a history of some liver disease along with hypertension. He apparently drinks on a daily basis and stopped drinking about 2 days ago. His family noticed he was more agitated and encouraged him to go to the emergency department. Upon arrival to the emergency department, he was noted to have some tachycardia and agitation. He received Librium along with IV fluids. He is now sleepy, but easily arousable. He does not have any specific complaints. PAST MEDICAL HISTORY: 1. Liver disease. 2. Alcoholism. 3. Hypertension. PAST SURGICAL HISTORY: Noncontributory. SOCIAL HISTORY: The patient smokes on a daily basis. He is a drinker. ALLERGIES: THERE ARE NO KNOWN DRUG ALLERGIES. REVIEW OF SYSTEMS: The patient does not complain of headache or fever. He has no neck pain. He is not complaining of any chest pain. He does not have any cough or difficulty breathing. He has some congestion. He has no abdominal pain. He has no nausea or vomiting. He has some mild abdominal distention, but does not appear to have a large amount of ascites. He has 1+ peripheral dyspnea. He has no abdominal pain. There is no nausea or vomiting. He does have some mild leg swelling. PHYSICAL EXAMINATION: VITAL SIGNS: The blood pressure is 132/92, saturation is 94% on 2 L, and the pulse is 124. T-max was 100.2 and is now 99.5. HEENT: Shows no facial swelling or erythema. LYMPHATIC: Shows no submandibular, cervical, or supraclavicular adenopathy. CARDIAC: Reveals regular rate and rhythm with normal S1 and S2. LUNGS: Auscultation of lungs reveals decreased breath sounds at bases. There is no wheezing. ABDOMEN: Soft and nontender. There is some mild ascites. There is no rebound or guarding. EXTREMITIES: Show no leg edema or calf tenderness. There is no cyanosis or clubbing. SKIN: Shows no rashes. NEUROLOGICAL: Shows the patient to be sleepy, but easily arousable. LABORATORY DATA: White blood cell count is 5.5, hemoglobin is 10.8, and the platelet count is 51. The BUN to creatinine ratio is 13 to 1.08. The potassium is 2.9. Sodium is 136. The albumin is 2.9. Other electrolytes are within normal limits. Phosphorus is low at 1.6. Total bilirubin is 6.4 and the alkaline phosphatase is 154. The AST is 213. Lipase is 725. IMPRESSION: 1. Low-grade fever of unclear etiology with possible sepsis on admission. 2. Chronic liver disease with elevated bilirubin and low albumin. 3. Hypokalemia. 4. Hypophosphatemia. 5. Elevated lipase, suggestive of possible pancreatitis. 6. Thrombocytopenia. 7. Macrocytic anemia. PLAN: 1. The patient will receive a fluid bolus consistent with the sepsis protocol. 2. Begin broad-spectrum antibiotics. 3. Panculture the patient. 4. Abdominal ultrasound. 5. Replete thiamine and B12. 6. Check PT and INR. 7. Continue Protonix. 8. Librium for prevention of DTs. 9. Swallowing study. Miguel Weiss MD Randy/VIKASHL /[id number]
[2019-12-05] MEDS ORDERED: MULTIVITAMINS- 12 INJECTION 10 ML, FOLIC ACID MDV 5 MG, THIAMINE HCL INJ 100 MG in SODI... IV ONE (11:45)
[2019-12-05] MEDS: FOLIC ACID 1 MG TAB PO SCH ×2 (12:16→12:17)
[2019-12-05] MEDS: CEFTRIAXONE SOD 1 GM/NS 50 ML 50 ML IV SCH (12:17)
[2019-12-05] MEDS: CYANOCOBALAMIN 1,000 MCG TAB PO SCH (12:17)
--- NOTE | 2019-12-05 15:03 | Diagnostic Imaging Report ---
EXAM: US ABDOMEN COMPLETE INDICATION: Elevated bilirubin. COMPARISON: CT abdomen/pelvis 03-11-2019. TECHNIQUE: Transverse and longitudinal rivas scale and color doppler sonographic images of the abdomen was obtained. FINDINGS: Somewhat limited examination secondary to overlying bowel gas. LIVER 14.9 cm in the right midclavicular line. Increased echogenicity of the liver with normal contour, no masses. SPLEEN 10.6 cm in maximum diameter. Normal echogenicity, no masses. GALLBLADDER Possible gallbladder sludge. There is a 0.3 cm echogenic nondependent focus along the gallbladder fundus wall which is nonmobile and demonstrates comet tail artifact. No gallbladder wall thickening, distension, or pericholecystic fluid. Negative reported sonographic Rowell's sign. BILE DUCTS No intra nor extra-hepatic biliary dilation. Common bile duct measures 0.4 cm PANCREAS: Limited evaluation. RIGHT KIDNEY: 10.8 cm Echogenicity: Normal Collecting System: No hydronephrosis Stones: None Cyst/Mass: None LEFT KIDNEY: 10.0 cm Echogenicity: Normal Collecting System: No hydronephrosis Stones: None Cyst/Mass: None VESSELS: Aorta: Limited evaluation. Inferior Vena Cava: Visualized portions are normal Main Portal Vein: 1.2 cm, normal size with hepatopetal flow. 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 Gallbladder polyp or stone is considered less likely. Possible gallbladder sludge. No evidence of cholecystitis. Hepatic steatosis. Signed by: Dr. Guzman Dupont MD on 12/05/2019 2:59 PM
[2019-12-05 17:22] LABS: ANION GAP 18.6 mmol/L (8-16); BLOOD UREA NITROGEN 14 mg/dL (7-26); BUN/CREATININE RATIO 17 (6-25); CALCIUM 8.2 mg/dL (8.4-10.2); CARBON DIOXIDE 26 mmol/L (22-29); CHLORIDE 92 mmol/L (98-107); CREATININE, SERUM 0.83 mg/dL (0.72-1.25); EST GLOMERULAR FILTRATION RATE > 60 ML/MIN (60-); GLUCOSE 94 mg/dL (74-118); SODIUM 133 mmol/L (136-145)
[2019-12-05 17:24] LABS: POTASSIUM 3.6 mmol/L (3.5-5.1)
[2019-12-05] MEDS: CHLORDIAZEPOXIDE HCL 25 MG CAP PO PRN (19:38)
[2019-12-06] VITALS (13 sets, daily range): BP systolic 102–152; BP diastolic 68–98
[2019-12-06] MEDS ORDERED: SODIUM CHLORIDE 0.9% 1000ML 1,000 ML IV SCH (02:00)
[2019-12-06] MEDS: CHLORDIAZEPOXIDE HCL 25 MG CAP PO PRN ×3 (03:06→15:50)
[2019-12-06 06:49] LABS: BASOPHILS % 0.6 % (0.0-1.0); EOSINOPHILS % 0.9 % (0.0-6.0); HEMATOCRIT 30.3 % (38.2-49.6); HEMOGLOBIN 10.3 g/dL (14.0-18.0); LYMPHOCYTES # (AUTO) 0.5 (1.0-3.2); LYMPHOCYTES % 16.6 % (18.0-39.1); MEAN CORPUSCULAR HEMOGLOBIN 34.6 pg (28-32); MEAN CORPUSCULAR VOLUME 101.7 fL (81-99); MONOCYTES # (AUTO) 0.4 (0.2-0.8); MONOCYTES % 12.6 % (4.4-11.3); NEUTROPHILS # (AUTO) 2.2 (2.1-6.9); PLATELET COUNT 53 x10e3/uL (140-360); RED BLOOD COUNT 2.98 x10e6/uL (4.3-5.7); RED CELL DISTRIBUTION WIDTH 16.8 % (11.7-14.4)
[2019-12-06 07:22] LABS: ALANINE AMINOTRANSFERASE 41 IU/L (0-55); ALBUMIN 2.7 g/dL (3.5-5.0); ALKALINE PHOSPHATASE 130 IU/L (40-150); ANION GAP 17.1 mmol/L (8-16); BLOOD UREA NITROGEN 12 mg/dL (7-26); BUN/CREATININE RATIO 16 (6-25); CALCIUM 8.1 mg/dL (8.4-10.2); CARBON DIOXIDE 28 mmol/L (22-29); CHLORIDE 94 mmol/L (98-107); CREATININE, SERUM 0.76 mg/dL (0.72-1.25); EST GLOMERULAR FILTRATION RATE > 60 ML/MIN (60-); GLUCOSE 89 mg/dL (74-118); POTASSIUM 3.1 mmol/L (3.5-5.1); SODIUM 136 mmol/L (136-145)
[2019-12-06 07:37] LABS: PHOSPHORUS 0.8 MG/DL (2.3-4.7)
[2019-12-06] MEDS: CEFTRIAXONE SOD 1 GM/NS 50 ML 50 ML IV SCH (07:49)
[2019-12-06 08:45] LABS: FERRITIN 4778.81 ng/mL (21.81-274.66)
[2019-12-06] MEDS ORDERED: SODIUM PHOSPHATE IN 0.9 % NACL 15 MMOL in SODIUM CHLORIDE 0.9% 250ML 250 ML IV SCH ×4 (09:50→10:00)
--- NOTE | 2019-12-06 10:13 | NUR ---
Received patient via bed from ICU. AAOX3 to time, person, place.Respirations even and unlabored. O2 2L NC. Tele #[phone]. Oriented patient to room. Instructed to use call light for assistance.
[2019-12-06] MEDS ORDERED: POTASSIUM CHLORIDE 20 MEQ TAB CR PO ONE (10:30)
--- NOTE | 2019-12-06 11:16 | Progress Note ---
DATE: SUBJECTIVE: The patient is complaining of being weak, but he does not have any focal neurological complaints. He has some tachycardia. His mental status is normal. His phosphorus was low and he is scheduled to receive phosphorus today. PHYSICAL EXAMINATION: VITAL SIGNS: Blood pressure is 118/68 and the saturation is 98% on 2 L. Respiratory rate is 22 and the pulse is 122. HEENT: Shows no facial swelling or erythema. LYMPHATIC: Shows no submandibular, cervical, or supraclavicular adenopathy. CARDIAC: Reveals regular rate and rhythm with normal S1 and S2. LUNGS: Auscultation of lungs reveals decreased breath sounds at the bases. There is no wheezing. ABDOMEN: Soft and nontender. There is no rebound or guarding. EXTREMITIES: Show no leg edema or calf tenderness. There is no cyanosis or clubbing. SKIN: Shows no rashes. NEUROLOGICAL: Shows weakness, but no focal abnormalities. LABORATORY DATA: White blood cell count is 3.28, hemoglobin is 10.3, and the platelet count is 53. The BUN to creatinine ratio is 12 to 0.76 and the potassium is 3.1. The total bilirubin is 6.0. The lipase is 1303. IMPRESSION: 1. Chronic liver disease and steatohepatitis with elevated bilirubin. 2. Impending alcohol withdrawal. 3. Hypophosphatemia. 4. Hypokalemia. 5. Elevated lipase, possibly related to pancreatitis. 6. Thrombocytopenia. 7. Macrocytic anemia. PLAN: 1. Replace phosphorus. 2. Replace potassium. 3. Continue Librium as needed. 4. Continue antibiotics. 5. Continue Protonix. 6. Transfer out of ICU. Miguel Weiss MD Randy/MODL /[id number]
[2019-12-06] MEDS ORDERED: ONDANSETRON HCL 4 MG ORAL DISINTEGRATING TAB PO PRN (13:45)
[2019-12-06] MEDS: PANTOPRAZOLE 40 MG 10ML VIAL IV SCH (17:51)
[2019-12-06] MEDS: NICOTINE 14 MG/EA PATCH TOP SCH (17:51)
--- NOTE | 2019-12-06 19:28 | NUR ---
Report given to oncoming nurse of patient's status. Resting in bed. No s/s of acute distress noted. Side rails upx2, call light within reach, bed alarm on.
[2019-12-06] MEDS: ZOLPIDEM TARTRATE 5 MG TAB PO PRN (20:30)
--- NOTE | 2019-12-06 21:22 | NUR ---
Pt continues to make several attempts to get out of bed. Pt is agitated and restless. Bed in locked and low position. Bed alarm on. Spoke to Dr. Maher new order given to give a one time dose of [id number] and ativan 1mg IV Q6hrs PRN agitation.
[2019-12-06] MEDS ORDERED: CHLORDIAZEPOXIDE HCL 25 MG CAP PO ONE (21:30)
[2019-12-06] MEDS: LORAZEPAM INJ 2 MG/ML VIAL IV PRN (21:51)
--- NOTE | 2019-12-06 22:30 | NUR ---
Pt is in bed resting with eyes closed. No agitation or restlessness noted. Bed alarm on. Bed in locked and low position. Call light in reach. Will cont to monitor.
[2019-12-07] VITALS (7 sets, daily range): BP systolic 127–167; BP diastolic 82–97
[2019-12-07 05:54] LABS: BASOPHILS % 0.3 % (0.0-1.0); EOSINOPHILS # (AUTO) 0.1 (0.0-0.4); EOSINOPHILS % 2.6 % (0.0-6.0); HEMATOCRIT 32.3 % (38.2-49.6); HEMOGLOBIN 11.1 g/dL (14.0-18.0); LYMPHOCYTES # (AUTO) 0.5 (1.0-3.2); LYMPHOCYTES % 13.4 % (18.0-39.1); MEAN CORPUSCULAR HEMOGLOBIN 33.7 pg (28-32); MEAN CORPUSCULAR HGB CONC 34.4 g/dL (31-35); MEAN CORPUSCULAR VOLUME 98.2 fL (81-99); MONOCYTES # (AUTO) 0.5 (0.2-0.8); MONOCYTES % 12.4 % (4.4-11.3); NEUTROPHILS # (AUTO) 2.7 (2.1-6.9); NEUTROPHILS % 70.5 % (38.7-80.0); PLATELET COUNT 62 x10e3/uL (140-360); RED BLOOD COUNT 3.29 x10e6/uL (4.3-5.7); RED CELL DISTRIBUTION WIDTH 16.6 % (11.7-14.4)
[2019-12-07 06:30] LABS: ALANINE AMINOTRANSFERASE 54 IU/L (0-55); ALBUMIN 2.8 g/dL (3.5-5.0); ALBUMIN/GLOBULIN RATIO 0.9 (0.8-2.0); ALKALINE PHOSPHATASE 149 IU/L (40-150); ANION GAP 18.6 mmol/L (8-16); BLOOD UREA NITROGEN 6 mg/dL (7-26); BUN/CREATININE RATIO 10 (6-25); CALCIUM 8.7 mg/dL (8.4-10.2); CARBON DIOXIDE 32 mmol/L (22-29); CHLORIDE 86 mmol/L (98-107); CREATININE, SERUM 0.61 mg/dL (0.72-1.25); EST GLOMERULAR FILTRATION RATE > 60 ML/MIN (60-); GLUCOSE 92 mg/dL (74-118); SODIUM 134 mmol/L (136-145)
[2019-12-07 06:31] LABS: POTASSIUM 2.6 mmol/L (3.5-5.1)
--- NOTE | 2019-12-07 06:39 | NUR ---
received critical lab results. paged Dr. Ana Maher.
--- NOTE | 2019-12-07 08:02 | NUR ---
Dr. Diallo Maher returned call for AM potassium of 2.6. Ordered for stat dose of 20 mEq potassium chloride by mouth now, then 20 mEq of potassium chloride every two hours x3 doses for a total of 80 mEq of potassium chloride. Order read back and verified. Entered as ordered.
[2019-12-07] MEDS ORDERED: POTASSIUM CHLORIDE 20 MEQ TAB CR PO ONE (08:25)
[2019-12-07] MEDS: PANTOPRAZOLE 40 MG 10ML VIAL IV SCH (08:33)
[2019-12-07] MEDS: NICOTINE 14 MG/EA PATCH TOP SCH (08:33)
[2019-12-07] MEDS: CYANOCOBALAMIN 1,000 MCG TAB PO SCH (08:39)
[2019-12-07] MEDS: CEFTRIAXONE SOD 1 GM/NS 50 ML 50 ML IV SCH (08:39)
[2019-12-07] MEDS: FOLIC ACID 1 MG TAB PO SCH (08:39)
[2019-12-07] MEDS ORDERED: SODIUM CHLORIDE 0.9% 250ML 250 ML ONE (08:48)
[2019-12-07] MEDS: POTASSIUM CHLORIDE 20 MEQ TAB CR PO SCH ×2 (11:40→14:30)
[2019-12-07 12:16] LABS: ALANINE AMINOTRANSFERASE 57 IU/L (0-55); ALBUMIN 2.9 g/dL (3.5-5.0); ALBUMIN/GLOBULIN RATIO 0.9 (0.8-2.0); ALKALINE PHOSPHATASE 158 IU/L (40-150); ANION GAP 19.1 mmol/L (8-16); BLOOD UREA NITROGEN 6 mg/dL (7-26); BUN/CREATININE RATIO 10 (6-25); CALCIUM 8.9 mg/dL (8.4-10.2); CARBON DIOXIDE 31 mmol/L (22-29); CHLORIDE 86 mmol/L (98-107); CREATININE, SERUM 0.62 mg/dL (0.72-1.25); EST GLOMERULAR FILTRATION RATE > 60 ML/MIN (60-); GLUCOSE 90 mg/dL (74-118); POTASSIUM 3.1 mmol/L (3.5-5.1); SODIUM 133 mmol/L (136-145)
--- NOTE | 2019-12-07 12:48 | Diagnostic Imaging Report ---
TECHNIQUE: Frontal and lateral views of the chest. INDICATION: ^SOB ^[id number] ^[id number] COMPARISON: 3 days prior IMPRESSION: Lines and hardware: Stable. Heart and mediastinum: Stable. Lungs and pleura: Elevated right hemidiaphragm. No focal airspace consolidation. Minimal left basilar atelectasis. Small pleural effusions. No pneumothorax. Soft tissues and bones: No acute abnormality. Signed by: Erick Isidro MD on 12/07/2019 12:45 PM
--- NOTE | 2019-12-07 13:39 | NUR ---
WOUND CARE CONSULT 64 YO MALE HX OF ALCOHOL WITHDRAWL, PANCREATITIS, TACHYCARDIA ROCIO 14 0N MODERATE PUP STATUS AND INTERVENTIONS ALTERNATING PRESSURE MATTRESS LABS: WBC- 3.87 HGB- 11.1 GLUCOSE-92 SKIN ASSESSMENT COMPLETE PATIENT PRESENTS WITH RIGHT GLUTEAL STAGE 2 1.8CM X1 CM X 0.1 CM RIGHT POSTERIOR HEEL CRACKED CALLUS AREA RECOMMENDATIONS: NURSING TO CONTINUE TO MONITOR PATIENT AND KEEP SKIN CLEAN AND FREE FROM LOOSE STOOL OR IRRITATING MOISTURE AND CONTINUE TO FOLLOW MODERATE PUP INTERVENTIONS NURSING TO CONTINUE TO GET PATIENT OUT OF BED FOR MEALS AND MUCH TOLERATED NURSING TO CLEAN RIGHT GLUTEAL STAGE 2 ULCERATION WITH NORMAL SALINE DAILY AND APPLY VENELEX OINTMENT AND COVER WITH ALLEVYN FOAM DRESSING NURSING TO CLEAN RIGHT CRACKED CALLUS AREA WITH NONABRASIVE OCCUPATIONAL THERAPY AIDE DAILY AND APPLY VENELEX OINTMENT AND LEAVE OPEN TO AIR Addendum: 12/07/19 at 1346 by Omega Andujar RN Amended: Links added.
--- NOTE | 2019-12-07 14:09 | NUR ---
Pt was unavailable not appropriate per nursing will f/u tomorrow Addendum: 12/07/19 at 1410 by Kashif Bee PTA Amended: Links added.
--- NOTE | 2019-12-07 16:00 | NUR ---
Patient attempting to get out of bed, removed all clothing, attempting to pull out IV. Reoriented and repositioned in bed. Visible tremors and hallucinations noted. Heart rate on tele 150's. IV lorazepam 1mg given PRN agitation. Pericare done, call light within reach. Bed alarm zone 2 on.
[2019-12-07] MEDS: LORAZEPAM INJ 2 MG/ML VIAL IV PRN (16:01)
--- NOTE | 2019-12-07 16:39 | Progress Note ---
DATE: SUBJECTIVE: The patient is afebrile. The vital signs are stable. He is still having some confusion. PHYSICAL EXAMINATION: VITAL SIGNS: Blood pressure is 127/83 and the pulse is 108. HEENT: Shows no facial swelling or erythema. LYMPHATIC: Shows no submandibular, cervical, or supraclavicular adenopathy. CARDIAC: Reveals a regular rate and rhythm with normal S1 and S2. LUNGS: Auscultation of lungs reveals decreased breath sounds at the bases. There is no wheezing. ABDOMEN: Soft and nontender. There is no rebound or guarding. EXTREMITIES: Show no leg edema or calf tenderness. There is no cyanosis or clubbing. SKIN: Shows no rashes. IMPRESSION: 1. Metabolic encephalopathy. 2. Chronic liver disease and steatohepatitis. 3. Impending alcohol withdrawal. 4. Hypokalemia. 5. Thrombocytopenia. PLAN: 1. Continue Librium as needed. 2. Repeat lipase and liver enzymes tomorrow. 3. Complete antibiotics. 4. Continue Protonix. Miguel Weiss MD [facility]/MODL /[id number]
[2019-12-07] MEDS ORDERED: POTASSIUM CHLORIDE 20 MEQ TAB CR PO SCH (17:00)
[2019-12-07] MEDS: CHLORDIAZEPOXIDE HCL 25 MG CAP PO PRN (19:50)
[2019-12-08] VITALS (9 sets, daily range): BP systolic 129–147; BP diastolic 86–103
[2019-12-08] MEDS: LORAZEPAM INJ 2 MG/ML VIAL IV PRN ×2 (05:23→19:55)
--- NOTE | 2019-12-08 07:00 | NUR ---
ASSUMED CARE. RESTING IN BED WITH EYES CLOSED. ACYANOTIC. EQUAL RISE AND FALL OF CHEST NOTED WITH RESPIRATIONS. CALL LIGHT IN REACH. SIDE RAILS UP X2. BED LOW AND LOCKED.
--- NOTE | 2019-12-08 07:15 | NUR ---
Bedside report and walking rounds completed with oncoming nurse. Patient in bed with call light within reach. No issues or concerns noted.
[2019-12-08 08:25] LABS: BASOPHILS % 0.6 % (0.0-1.0); EOSINOPHILS # (AUTO) 0.1 (0.0-0.4); EOSINOPHILS % 2.5 % (0.0-6.0); HEMOGLOBIN 10.7 g/dL (14.0-18.0); LYMPHOCYTES # (AUTO) 0.6 (1.0-3.2); LYMPHOCYTES % 12.7 % (18.0-39.1); MEAN CORPUSCULAR HEMOGLOBIN 34.7 pg (28-32); MEAN CORPUSCULAR HGB CONC 35.7 g/dL (31-35); MEAN CORPUSCULAR VOLUME 97.4 fL (81-99); MONOCYTES # (AUTO) 0.9 (0.2-0.8); MONOCYTES % 18.6 % (4.4-11.3); NEUTROPHILS # (AUTO) 3.1 (2.1-6.9); PLATELET COUNT 88 x10e3/uL (140-360); RED BLOOD COUNT 3.08 x10e6/uL (4.3-5.7)
[2019-12-08 08:45] LABS: PHOSPHORUS 0.8 MG/DL (2.3-4.7)
[2019-12-08] MEDS: NICOTINE 14 MG/EA PATCH TOP SCH (08:48)
[2019-12-08] MEDS: CYANOCOBALAMIN 1,000 MCG TAB PO SCH (08:48)
[2019-12-08] MEDS: PANTOPRAZOLE 40 MG 10ML VIAL IV SCH (08:48)
[2019-12-08] MEDS: FOLIC ACID 1 MG TAB PO SCH (08:48)
[2019-12-08] MEDS ORDERED: SODIUM CHLORIDE 0.9% 250ML 250 ML ONE (09:11)
[2019-12-08] MEDS: BALSAM PERU/CASTOR OIL 60 GM OINT...G. TP SCH (09:17)
[2019-12-08] MEDS: CEFTRIAXONE SOD 1 GM/NS 50 ML 50 ML IV SCH (09:17)
[2019-12-08 09:23] LABS: MAGNESIUM 0.9 MG/DL (1.3-2.1)
[2019-12-08] MEDS ORDERED: MAGNESIUM SULFATE 2GM/50ML 50 ML IV ONE (10:30)
[2019-12-08] MEDS ORDERED: POTASSIUM CHLORIDE 10MEQ EA PO ONE ×3 (10:40→14:00)
[2019-12-08] MEDS ORDERED: MAGNESIUM SULFATE 2GM/50ML 100 ML IV ONE (11:30)
[2019-12-08] MEDS ORDERED: MAGNESIUM SULFATE 2GM/50ML 50 ML IV STA (11:46)
[2019-12-08] MEDS ORDERED: SODIUM CHLORIDE 0.9% IV ONE ×2 (12:15→12:30)
[2019-12-08] MEDS ORDERED: MAGNESIUM SULFATE IV ONE ×2 (12:15→12:30)
[2019-12-08] MEDS ORDERED: POTASSIUM CHLORIDE 20 MEQ TAB CR PO SCH (16:15)
--- NOTE | 2019-12-08 18:54 | NUR ---
REPORT RECEIVED BY Omar RAYMUNDO RN. PATIENT RESTING IN BED. AWAKE AND ALERT. ORIENTED TO PERSON. BED ALARM NOTED. NO DISTRESS. CALL LIGHT IN REACH. SIDE RAILS UP X2. BED LOW AND LOCKED.
[2019-12-09] VITALS (8 sets, daily range): BP systolic 110–128; BP diastolic 77–87
[2019-12-09] MEDS: CHLORDIAZEPOXIDE HCL 25 MG CAP PO PRN (01:28)
[2019-12-09] MEDS: ZOLPIDEM TARTRATE 5 MG TAB PO PRN (01:28)
[2019-12-09 05:57] LABS: ANION GAP 14.4 mmol/L (8-16); BLOOD UREA NITROGEN 10 mg/dL (7-26); BUN/CREATININE RATIO 17 (6-25); CALCIUM 8.8 mg/dL (8.4-10.2); CARBON DIOXIDE 31 mmol/L (22-29); CHLORIDE 91 mmol/L (98-107); CREATININE, SERUM 0.59 mg/dL (0.72-1.25); EST GLOMERULAR FILTRATION RATE > 60 ML/MIN (60-); GLUCOSE 108 mg/dL (74-118); POTASSIUM 3.4 mmol/L (3.5-5.1); SODIUM 133 mmol/L (136-145)
--- NOTE | 2019-12-09 07:00 | NUR ---
ASSUMED CARE. PATIENT RESTING IN BED WITH EYES CLOSED. EQUAL RISE AND FALL OF CHEST NOTED WITH EACH RESPIRATION. NO DISTRESS NOTED. CALL LIGHT IN REACH. SIDE RAILS UP X2. BED LOW AND LOCKED. BED ALARM NOTED.
[2019-12-09] MEDS ORDERED: POTASSIUM CHLORIDE 10MEQ EA PO ONE (09:35)
[2019-12-09] MEDS: NICOTINE 14 MG/EA PATCH TOP SCH (09:41)
[2019-12-09] MEDS: BALSAM PERU/CASTOR OIL 60 GM OINT...G. TP SCH (09:41)
[2019-12-09] MEDS: FOLIC ACID 1 MG TAB PO SCH (09:41)
[2019-12-09] MEDS: LIDOCAINE 4% PATCH TP SCH (09:41)
[2019-12-09] MEDS: CEFTRIAXONE SOD 1 GM/NS 50 ML 50 ML IV SCH (09:41)
[2019-12-09] MEDS: CYANOCOBALAMIN 1,000 MCG TAB PO SCH (09:41)
[2019-12-09] MEDS: PANTOPRAZOLE 40 MG 10ML VIAL IV SCH (09:41)
[2019-12-09] MEDS ORDERED: MAGNESIUM SULF 1GRAM/DEXTROSE 100 ML IV ONE (10:30)
--- NOTE | 2019-12-09 12:45 | NUR ---
PATIENT AWAKE AND ALERT. ACYANOTIC. PATIENT REFUSING BLOOD DRAW.
--- NOTE | 2019-12-09 14:39 | NUR ---
Nutrition Intervention Note RD Recommendation(s) for Physician: -Continue current diet as ordered -Recommend Silvano BID to promote wound healing -Recommend Ensure Compact BID for added nutrition Plan of Care: RD following, monitoring for tolerance and adequacy, oral supplement recommendation Nutrition reason for involvement: alcohol withdrawal, pancreatitis, tachycardia, elevated total bilirubin, vomiting RD Assessment (12/09/19) Pt is a 64 year old male admitted with alcohol withdrawal, pancreatitis, tachycardia, elevated total bilirubin, and vomiting. Attempted to speak to pt, but he was sleeping at time of visit and did not arouse to greeting. RN stated pt did not eat breakfast this morning and did not eat lunch yet since he has mainly been sleeping all day. Pt has varied intake recorded ranging from 0-100% during admission. There are no previous weights in chart. Per wound care note, pt has a stage 2 right gluteal pressure ulcer. Recommend Silvano BID to promote wound healing and Ensure Compact BID for added nutrition. Will continue to monitor. Principal Problems/Diagnoses: alcohol withdrawal, pancreatitis, tachycardia, total bilirubin, and vomiting PMH: Liver disease, Alcoholism, Hypertension. GI: soft/non-tender abdomen Skin: stage 2 gluteal pressure ulcer (wound care note 12/06) Labs: (12/08) Na 133, K 3.4, BUN 10, Cr 0.59, Glu 108, Ca 8.8 (12/07) Lipase 490 Meds: antibiotic, vitamin B12, folic acid, zofran Ht: 71 in Wt: 161 lbs BMI: 22.5 kg/m2 IBW: 172 lbs Malnutrition Evaluation (12/09/19) Unable to obtain nutrition history from pt at this time. Will re-evaluate at follow-up as appropriate. Nutrition Prescription (Diet Order): low sodium diet/chopped Estimated Nutritional Needs: 1330-3971 calories/day (30-35 kcal/kg CBW) 88-110 g protein/day (1.2-1.5 g pro/kg CBW) Diet Adequacy: Not meeting calorie needs, Not meeting protein needs Tolerance: unable to assess Diet Education Needs Assessment: Diet education not indicated Nutrition Care Level: low Nutrition Diagnosis: Increased nutrient needs related to increased demand for protein and kcal as evidenced by pressure ulcer. Goal: Patient will meet 75-100% of estimated needs by follow up Progress: N/A Interventions: -sodium and texture -modified diet, Commercial beverage Monitoring/Evaluation: -Total energy intake, Total protein intake, Modified diet, Liquid supplement, Weight change Signed: Bailey Morrow RD, LD
--- NOTE | 2019-12-09 14:47 | NUR ---
CALLED [facility] (SPOKE WITH LORIE) AFTER SPEAKING TO PT WHOM WAS CONCERNED ABOUT COPAY FOR SNF. HE HAS 6800.00 DEDUCTIBLE, MET SO FAR IS 2624.52; OOP OF 8150.00, MET SO FAR 2666.08. HE HAS 60 CALENDER DAYS AVAILABLE FOR SNF A YEAR THAT PAYS 40% AFTER DEDUCTIBLE IS MET. FOR THIS VISIT HE WOULD HAVE TO PAY 4175.48 UP FRONT THEN THE PERCENTAGE PER DAY AFTER THAT WHICH WILL BE APPROXIMATELY 3-600 PER DAY DEPENDING ON THERAPY NEEDS AND MEDICATIONS. PT CANNOT AFFORD TO PAY ANY PORTION OF THIS.
--- NOTE | 2019-12-09 19:20 | NUR ---
BEDSIDE SHIFT REPORT RECEIVED FROM DAYSHIFT PATIENT SEEN SLEEPING, RESPONDS TO VOICE, SAFETY PRECAUTIONS IN PLACE, CALL LIGHT WITHIN REACH, ATTEMPTED TO GO OVER CARE PLAN PATIENT CONTINUES TO SLEEP, WILL CONTINUE TO MONITOR
--- NOTE | 2019-12-09 20:01 | NUR ---
patient seen sleeping, arousable when name called, attempted to get him to eat his dinner, but states "Im not about to do anything right now", will attempt in hour to feed and give hydration, bed alarm in place, telephone placed back on synthetic plasterer call light within reach, instructed not to get OOB unassisted, stated "OK"
[2019-12-10] VITALS (7 sets, daily range): BP systolic 98–137; BP diastolic 68–89
[2019-12-10 00:06] LABS: ALANINE AMINOTRANSFERASE 54 IU/L (0-55); ALBUMIN 2.7 g/dL (3.5-5.0); ALBUMIN/GLOBULIN RATIO 0.9 (0.8-2.0); ALKALINE PHOSPHATASE 184 IU/L (40-150); ANION GAP 14.4 mmol/L (8-16); BLOOD UREA NITROGEN 12 mg/dL (7-26); BUN/CREATININE RATIO 20 (6-25); CALCIUM 8.6 mg/dL (8.4-10.2); CARBON DIOXIDE 31 mmol/L (22-29); CHLORIDE 91 mmol/L (98-107); CREATININE, SERUM 0.61 mg/dL (0.72-1.25); EST GLOMERULAR FILTRATION RATE > 60 ML/MIN (60-); GLUCOSE 95 mg/dL (74-118); POTASSIUM 3.4 mmol/L (3.5-5.1); SODIUM 133 mmol/L (136-145)
[2019-12-10 06:15] LABS: BASOPHILS % 0.6 % (0.0-1.0); EOSINOPHILS # (AUTO) 0.1 (0.0-0.4); EOSINOPHILS % 2.7 % (0.0-6.0); HEMATOCRIT 30.5 % (38.2-49.6); HEMOGLOBIN 10.6 g/dL (14.0-18.0); LYMPHOCYTES # (AUTO) 0.6 (1.0-3.2); LYMPHOCYTES % 12.2 % (18.0-39.1); MEAN CORPUSCULAR HEMOGLOBIN 34.8 pg (28-32); MEAN CORPUSCULAR HGB CONC 34.8 g/dL (31-35); MONOCYTES # (AUTO) 0.9 (0.2-0.8); NEUTROPHILS # (AUTO) 3.5 (2.1-6.9); NEUTROPHILS % 66.7 % (38.7-80.0); PLATELET COUNT 158 x10e3/uL (140-360); RED BLOOD COUNT 3.05 x10e6/uL (4.3-5.7); RED CELL DISTRIBUTION WIDTH 18.6 % (11.7-14.4)
[2019-12-10] MEDS ORDERED: MAGNESIUM HYDROXIDE 30 ML UDC PO ONE (08:15)
[2019-12-10] MEDS: FOLIC ACID 1 MG TAB PO SCH (08:55)
[2019-12-10] MEDS: CEFTRIAXONE SOD 1 GM/NS 50 ML 50 ML IV SCH (08:55)
[2019-12-10] MEDS: LIDOCAINE 4% PATCH TP SCH (08:55)
[2019-12-10] MEDS: CYANOCOBALAMIN 1,000 MCG TAB PO SCH (08:55)
[2019-12-10] MEDS: BALSAM PERU/CASTOR OIL 60 GM OINT...G. TP SCH (08:55)
[2019-12-10] MEDS: NICOTINE 14 MG/EA PATCH TOP SCH (08:55)
[2019-12-10] MEDS: PANTOPRAZOLE 40 MG 10ML VIAL IV SCH (08:55)
--- NOTE | 2019-12-10 09:05 | NUR ---
Pt. expressed no spiritual or emotional concerns at this time. Winder Contort Operator provided hospitality and information on how to reach toy trains and accessories salesperson, if needed. No need to follow. LUIGI PALAFOX Winder Contort Operator Spiritual Care Department O: [phone]
[2019-12-10] MEDS ORDERED: TRAMADOL/APAP 37.5MG-325MG TAB PO PRN (16:30)
[2019-12-10 16:52] LABS: ALANINE AMINOTRANSFERASE 51 IU/L (0-55); ALBUMIN 2.5 g/dL (3.5-5.0); ALBUMIN/GLOBULIN RATIO 0.9 (0.8-2.0); ALKALINE PHOSPHATASE 160 IU/L (40-150); ANION GAP 16.4 mmol/L (8-16); BLOOD UREA NITROGEN 13 mg/dL (7-26); BUN/CREATININE RATIO 22 (6-25); CALCIUM 8.6 mg/dL (8.4-10.2); CARBON DIOXIDE 28 mmol/L (22-29); CHLORIDE 93 mmol/L (98-107); CREATININE, SERUM 0.59 mg/dL (0.72-1.25); EST GLOMERULAR FILTRATION RATE > 60 ML/MIN (60-); GLUCOSE 87 mg/dL (74-118); POTASSIUM 3.4 mmol/L (3.5-5.1); SODIUM 134 mmol/L (136-145)
[2019-12-10 17:35] LABS: CHOL/HDL RATIO 14.6 (3.9-4.7)
--- NOTE | 2019-12-10 17:43 | Diagnostic Imaging Report ---
X-ray : 1 view of the pelvis, 2 views of the right hip. HISTORY: Pain. COMPARISON: None available. FINDINGS: Bones: No acute displaced fracture. Osseous alignment is within normal limits. Joints: The joint spaces are well-maintained. There are mild degenerative changes of the bilateral hips. Mild to moderate degenerative changes of the lower lumbar spine and sacroiliac joints. Soft tissues: The soft tissues appear unremarkable. The partially imaged abdomen demonstrates normal bowel gas pattern. IMPRESSION: 1. No acute radiographic abnormality. 2. Mild degenerative changes of the bilateral hips. 3. Mild to moderate degenerative changes of the lower lumbar spine and sacroiliac joints. Signed by: Jacinto Pillai MD on 12/10/2019 5:39 PM
--- NOTE | 2019-12-10 19:27 | NUR ---
Report given to oncoming nurse of patient's status. Resting in bed. No s/s of acute distress noted. Side rails upx3, call light within reach, bed alarm on.
[2019-12-11 05:59] LABS: BASOPHILS % 0.7 % (0.0-1.0); EOSINOPHILS # (AUTO) 0.2 (0.0-0.4); EOSINOPHILS % 3.9 % (0.0-6.0); HEMATOCRIT 29.2 % (38.2-49.6); HEMOGLOBIN 10.1 g/dL (14.0-18.0); LYMPHOCYTES # (AUTO) 0.8 (1.0-3.2); LYMPHOCYTES % 19.1 % (18.0-39.1); MEAN CORPUSCULAR HEMOGLOBIN 34.4 pg (28-32); MEAN CORPUSCULAR HGB CONC 34.6 g/dL (31-35); MEAN CORPUSCULAR VOLUME 99.3 fL (81-99); MONOCYTES # (AUTO) 0.9 (0.2-0.8); MONOCYTES % 19.8 % (4.4-11.3); NEUTROPHILS # (AUTO) 2.4 (2.1-6.9); NEUTROPHILS % 55.6 % (38.7-80.0); PLATELET COUNT 192 x10e3/uL (140-360); RED BLOOD COUNT 2.94 x10e6/uL (4.3-5.7); RED CELL DISTRIBUTION WIDTH 19.1 % (11.7-14.4)
[2019-12-11 06:13] VITALS: BP 102/76
[2019-12-11 06:21] LABS: ALANINE AMINOTRANSFERASE 53 IU/L (0-55); ALBUMIN 2.4 g/dL (3.5-5.0); ALBUMIN/GLOBULIN RATIO 0.8 (0.8-2.0); ALKALINE PHOSPHATASE 179 IU/L (40-150); ANION GAP 13.5 mmol/L (8-16); BLOOD UREA NITROGEN 13 mg/dL (7-26); BUN/CREATININE RATIO 22 (6-25); CALCIUM 8.5 mg/dL (8.4-10.2); CARBON DIOXIDE 30 mmol/L (22-29); CHLORIDE 92 mmol/L (98-107); EST GLOMERULAR FILTRATION RATE > 60 ML/MIN (60-); GLUCOSE 108 mg/dL (74-118); POTASSIUM 3.5 mmol/L (3.5-5.1); SODIUM 132 mmol/L (136-145)
--- NOTE | 2019-12-11 07:00 | NUR ---
RECEIVED BEDSIDE REPORT FROM OFF GOING NIGHT NURSE. PATIENT IN STABLE CONDITION, NO S/S OF DISTRESS NOTED. PATIENT ABLE TO VOICE NEEDS. RESPIRATIONS EVEN AND NONLABORED. IV SITE ASYMPTOMATIC AND PATENT, TRANSPARENT DRESSING C/D/I. BED ALARM APPLIED. BED IN LOWEST POSITION AND LOCKED., SIDE RAILS X 2, NONSKID SOCKS APPLIED. CALL LIGHT WITHIN REACH.
[2019-12-11 08:53] VITALS: BP 98/80
[2019-12-11] MEDS: CEFTRIAXONE SOD 1 GM/NS 50 ML 50 ML IV SCH (09:07)
[2019-12-11] MEDS: CYANOCOBALAMIN 1,000 MCG TAB PO SCH (09:07)
[2019-12-11] MEDS: PANTOPRAZOLE 40 MG 10ML VIAL IV SCH (09:07)
[2019-12-11] MEDS: NICOTINE 14 MG/EA PATCH TOP SCH (09:07)
[2019-12-11] MEDS: LIDOCAINE 4% PATCH TP SCH (09:08)
[2019-12-11] MEDS: BALSAM PERU/CASTOR OIL 60 GM OINT...G. TP SCH (09:08)
[2019-12-11] MEDS: FOLIC ACID 1 MG TAB PO SCH (09:08)
[2019-12-11 09:16] VITALS: BP 98/80
[2019-12-11] MEDS: LACTULOSE SYRUP 20 GM/30 ML UDC PO SCH ×2 (10:45→17:07)
--- NOTE | 2019-12-11 11:25 | Progress Note ---
DATE: 12/11/2019 CHIEF COMPLAINT/HISTORY OF PRESENT ILLNESS: This is a 64-year-old white man, whose primary treating diagnosis is alcohol liver cirrhosis and pancreatitis. The patient is a heavy alcohol drinker. Blood work performed today revealed a BUN and creatinine of 13 and 0.6 respectively. The patient's potassium is 3.5. Sodium 132. The patient's total bilirubin is 4.8. The patient's alkaline phosphatase is elevated at 179. The patient's AST and ALT were 125 and 153 respectively. The patient's lipase is elevated at 326. The patient, however, denies any abdominal pain. The patient's albumin was 2.4 mg/dL. White blood cell count today is 4300 with 55% segmented neutrophils. Hemoglobin is 10.1 g/dL. The patient's platelet count is 192,000. REVIEW OF SYSTEMS: As per HPI. PHYSICAL EXAMINATION: GENERAL: He is awake, alert. He is oriented, does not appear to be in any obvious distress. VITAL SIGNS: Height 5 feet 11 inches, weight 160 pounds, BMI 22. Blood pressure is 98/80, pulse 82, respiratory rate 18, temp 98.3, and oxygen saturation 96% on room air. INTEGUMENT: Skin is warm and dry. No pallor, jaundice, or diaphoresis. HEENT: Icteric sclerae. Moist mucous membranes. NECK: Supple. CARDIOVASCULAR: Distant heart sounds. Regular rate and rhythm. LUNGS: Coarse bronchial breath sounds bilaterally. ABDOMEN: Soft. No tenderness is appreciated. EXTREMITIES: No edema or deformity. NEUROLOGIC: Intact. DIAGNOSES: 1. Chronic alcoholism. 2. Alcoholic liver cirrhosis. 3. Mild pancreatitis. 4. Tobacco abuse. 5. Pancytopenia secondary to liver cirrhosis. 6. Mild hepatic encephalopathy, likely. PLAN: 1. We will check a serum ammonia level since the patient may be experiencing hepatic encephalopathy. 2. We will start lactulose 20 g by mouth twice a day for likely hepatic encephalopathy. 3. We will follow amylase and lipase level. 4. Order CT of the abdomen and pelvis with intravenous contrast since the patient likely has mild pancreatitis. 5. Recommend absolute alcohol abstinence. 6. Recommend tobacco cessation. 7. We will change pantoprazole from intravenous to oral. 8. Mobilize physical therapy. 9. Pain control with topical lidocaine patches and tramadol. 10. We will stop tramadol/acetaminophen since patient has elevated hepatic transaminases. 11. We will follow complete blood count. I spent 40 minutes in the care of this patient. MD BOBBY Lennon/KULDEEP /[id number]
[2019-12-11] MEDS ORDERED: POTASSIUM CHLORIDE 10MEQ EA PO ONE (11:30)
--- NOTE | 2019-12-11 12:05 | NUR ---
FAMILY MEMBER GAVE THE PATIENT FOOD. IT WAS EXPLAINED TO THE PATIENT X [address] A [address] ORDERED AND THAT HE COULD NOT EAT FOR 4 HRS. SO THE TEST COULD BE DONE. THIS NURSE AND THE PCT EXPLAINED TO THE FAMILY MEMBER THAT THE PATIENT IS NOT TO EAT FOR 4 HRS. DUE TO HAVING A TEST ORDERED. THE FAMILY MEMBER TOLD THE PCT THAT THE PATIENT IS GOING TO EAT. THIS NURSE WENT TO THE PATIENT'S ROOM AND EXPLAINED TO THE FAMILY MEMBER THAT HE IS TO NOT EAT FOR 4 HRS SO THE TEST CAN BE PERFORMED.
[2019-12-11 12:24] VITALS: BP 137/81
--- NOTE | 2019-12-11 12:35 | NUR ---
FAMILY MEMBER WAS STILL GIVING THE PATIENT FOOD AFTER IT WAS EXPLAINED TO HER NOT TO GIVEN THE PATIENT ANY FOOD DUE TO A TEST BEING ORDERED. CHARGE NURSE AND BACK TUFTER NOTIFIED, ABOUT THE FAMILY MEMBER.
--- NOTE | 2019-12-11 17:52 | NUR ---
PAGED DUE TO THE PATIENT NOT ABLE TO GET THE CT W/CONTRAST THAT HE ORDERED THIS MORNING DUE TO THE PATIENT'S IV ACCESS BLOWING X6 TRIES TO ASK IF HE WOULD LIKE THE CT TO BE DONE WITHOUT CONTRAST. AWAITING A RETURN CALL.
--- NOTE | 2019-12-11 18:05 | NUR ---
RECEIVED A CALL BACK FROM RECEIVED A CHANGE TO THE CT ORDER WITH NO CONTRAST.
--- NOTE | 2019-12-11 18:57 | NUR ---
COMPLETED BEDSIDE REPORT AND ROUNDING WITH ONCOMING NIGHT NURSE. PATIENT IN STABLE CONDITION, NO S/S OF DISTRESS NOTED. PATIENT ABLE TO VOICE NEEDS. RESPIRATIONS EVEN AND NONLABORED. IV SITE ASYMPTOMATIC AND PATENT, TRANSPARENT DRESSING C/D/I. BED ALARM APPLIED. BED IN LOWEST POSITION AND LOCKED., SIDE RAILS X 2, NONSKID SOCKS APPLIED. CALL LIGHT WITHIN REACH.
--- NOTE | 2019-12-11 19:20 | NUR ---
Received the pt in report.lyeing in the bed.denied any needs.
--- NOTE | 2019-12-11 19:42 | Diagnostic Imaging Report ---
EXAM: CT Abdomen and Pelvis WITHOUT contrast INDICATION: Pancreatitis COMPARISON: Abdominal ultrasound 12/05/2019. TECHNIQUE: Abdomen and pelvis were scanned utilizing a multidetector helical scanner from the lung base to the pubic symphysis without administration of IV contrast. Absence of intravenous contrast decreases sensitivity for detection of focal lesions and vascular pathology. Coronal and sagittal reformations were obtained. Routine protocol was performed. IV CONTRAST: None ORAL CONTRAST: None COMPLICATIONS: None RADIATION DOSE: Total DLP: 328 mGy*cm Estimated effective dose: (DLP x 0.015 x size factor) mSv CTDIvol has been reviewed. It is below the limits set by the Radiation Protocol Committee (RPC). Dose modulation, iterative reconstruction, and/or weight based adjustment of the mA/kV was utilized to reduce the radiation dose to as low as reasonably achievable. FINDINGS: LINES and TUBES: None. LOWER THORAX: Subsegmental right basilar consolidative opacity with an volume loss. Triple vessel coronary artery calcifications. HEPATOBILIARY: Hypodense enlarged liver. No focal hepatic lesions. No biliary ductal dilation. GALLBLADDER: Radiopaque gallbladder contents.. No wall thickening. SPLEEN: No splenomegaly. PANCREAS: No focal masses or ductal dilatation. Trace peripancreatic fat stranding. ADRENALS: No adrenal nodules KIDNEYS/URETERS: No hydronephrosis. No cystic or solid mass lesions. No stones. Subtle bilateral perinephric fat stranding can be due to renal insufficiency or senescence. GI TRACT: Smooth wall thickening of the sigmoid flexure. Trace surrounding fat stranding. Extensive colonic diverticuli, worst in the distal descending and proximal sigmoid colon. No evidence of bowel obstruction. Appendix is normal. PELVIC ORGANS/BLADDER: Unremarkable. LYMPH NODES: No lymphadenopathy. VESSELS: Arterial calcifications. PERITONEUM / RETROPERITONEUM: No free air or fluid. BONES: Degenerative changes. SOFT TISSUES: Unremarkable. IMPRESSION: 1. Trace peripancreatic fat stranding could be indicative of pancreatitis. No fluid collections, duct dilation or mass. 2. Suspect acute comminuted sigmoid diverticulitis. Given wall thickening number recommend referral for colonoscopy. 3. Atelectasis with probable pneumonia component in the posterior basilar right lower lobe. 4. Gallbladder contents compatible with sludge as seen on abdominal ultrasound 12/05/2019. Hepatomegaly with hepatic steatosis. 5. Triple vessel coronary artery calcific atherosclerosis. Signed by: Dawood Chappell DO on 12/11/2019 7:39 PM
[2019-12-11 20:00] VITALS: BP 118/79
[2019-12-11 21:00] VITALS: BP 118/79
[2019-12-12] VITALS (8 sets, daily range): BP systolic 96–134; BP diastolic 69–87
--- NOTE | 2019-12-12 00:20 | NUR ---
was doing rounds.had a bowel movement.repositioned.changed allevyn foam.stable condition.
[2019-12-12] MEDS: TRAMADOL HCL 50 MG TAB PO PRN ×3 (01:58→19:43)
--- NOTE | 2019-12-12 06:20 | NUR ---
Patient refused to draw blood for lab works.
--- NOTE | 2019-12-12 07:00 | NUR ---
RECEIVED BEDSIDE REPORT FROM OFF GOING NIGHT NURSE. RESPIRATIONS EVEN AND NONLABORED. PATIENT IN STABLE CONDITION, NO S/S OF DISTRESS NOTED. PATIENT ABLE TO VOICE NEEDS. IV SITE ASYMPTOMATIC AND PATENT, TRANSPARENT DRESSING C/D/I. BED ALARM APPLIED. BED IN LOWEST POSITION AND LOCKED., SIDE RAILS X 2, NONSKID SOCKS APPLIED. CALL LIGHT WITHIN REACH.
--- NOTE | 2019-12-12 07:25 | NUR ---
Bed side shift report given to oncoming Rn.stable condition.
[2019-12-12] MEDS: PANTOPRAZOLE SOD 40 MG TABEC PO SCH (07:30)
[2019-12-12] MEDS: CYANOCOBALAMIN 1,000 MCG TAB PO SCH (09:21)
[2019-12-12] MEDS: LACTULOSE SYRUP 20 GM/30 ML UDC PO SCH ×2 (09:21→17:39)
[2019-12-12] MEDS: NICOTINE 14 MG/EA PATCH TOP SCH (09:21)
[2019-12-12] MEDS: LIDOCAINE 4% PATCH TP SCH (09:21)
[2019-12-12] MEDS: FOLIC ACID 1 MG TAB PO SCH ×2 (09:21→17:39)
[2019-12-12] MEDS: CEFTRIAXONE SOD 1 GM/NS 50 ML 50 ML IV SCH (09:21)
[2019-12-12] MEDS: BALSAM PERU/CASTOR OIL 60 GM OINT...G. TP SCH (09:22)
[2019-12-12 09:54] LABS: INR 0.99; PROTHROMBIN TIME 13.6 seconds (11.9-14.5)
[2019-12-12 10:04] LABS: ALANINE AMINOTRANSFERASE 58 IU/L (0-55); ALBUMIN 2.5 g/dL (3.5-5.0); ALBUMIN/GLOBULIN RATIO 0.9 (0.8-2.0); ALKALINE PHOSPHATASE 206 IU/L (40-150); ANION GAP 13.8 mmol/L (8-16); BLOOD UREA NITROGEN 11 mg/dL (7-26); BUN/CREATININE RATIO 17 (6-25); CALCIUM 8.7 mg/dL (8.4-10.2); CARBON DIOXIDE 26 mmol/L (22-29); CHLORIDE 95 mmol/L (98-107); CREATININE, SERUM 0.63 mg/dL (0.72-1.25); EST GLOMERULAR FILTRATION RATE > 60 ML/MIN (60-); GLUCOSE 116 mg/dL (74-118); POTASSIUM 3.8 mmol/L (3.5-5.1); SODIUM 131 mmol/L (136-145)
[2019-12-12 10:14] LABS: AMYLASE 13 U/L (25-125); LIPASE 273 U/L (8-78)
[2019-12-12] MEDS: CEFEPIME 1GM/NS 0.9% 50 ML 50 ML IV SCH ×2 (10:30→22:50)
--- NOTE | 2019-12-12 12:25 | Progress Note ---
DATE: 12/12/2019 CHIEF COMPLAINT/HISTORY OF PRESENT ILLNESS: This is a 64-year-old white man, whose primary true diagnosis is alcoholic liver cirrhosis and chronic alcoholism. The patient underwent a CT of the abdomen and pelvis yesterday without contrast that revealed findings consistent with pancreatitis as well as atelectasis/infiltrate in the posterior basilar right lower lobe. The CT of abdomen and pelvis also revealed hepatomegaly with hepatosteatosis. It also revealed gallbladder sludge. The patient had blood work performed today was found to have a BUN and creatinine of 11 and 0.63 respectively. The patient's ACL tear 132 and 58 respectively. Serum ammonia level yesterday was 64. Albumin level is 2.5 mg/dL. The patient's amylase 13 and lipase is 273. The patient's potassium is 3.8. Sodium 131. The patient's total bilirubin is 4.8. The patient participate in physical therapy yesterday, but all he could do was sit and stand on the side of the bed with maximum assistance. The patient cannot ambulate because he is too weak. REVIEW OF SYSTEMS: As per HPI. PHYSICAL EXAMINATION: GENERAL: He is awake. He is he is alert. He does get confused easily. He answers questions slowly. Does not appear to be in any obvious distress. VITAL SIGNS: Height 5 feet 11 inches, weight 160 pounds BMI 22, blood pressure 112/72, pulse 90, respiratory rate 18, temperature 97.6, oxygen saturation 94% on room air. INTEGUMENT: Skin is warm and dry. Slight pallor. The patient has obvious jaundice. No diaphoresis appreciated. HEENT: Icteric sclerae with moist mucous membranes. NECK: Supple. CARDIOVASCULAR: Distant heart sounds. Tachycardic rate and rhythm. LUNGS: The patient has diminished breath sounds, left base. ABDOMEN: Soft. Normal bowel sounds. Nontender. No obvious fluid wave from ascites appreciated. EXTREMITIES: No edema or deformity. NEUROLOGIC: Intact. DIAGNOSES: 1. Right-sided aspiration pneumonia (present on admission). 2. Alcoholic liver cirrhosis. 3. Chronic alcoholism. 4. Tobacco abuse. 5. Pancreatitis (mild). 6. Pancytopenia secondary to alcoholic liver cirrhosis. PLAN: 1. I spoke at length with the patient's adult brother and medical power of tax attorney, Tess Brian Sanchez. 2. I informed the patient's brother that if the patient does not quit drinking alcohol, he will likely within the next 6 to 12 months. 3. Mobilize with physical therapy. 4. We will check complete blood count today. 5. Continue lactulose 20 g twice a day to help treat his hepatic encephalopathy. 6. We will start intravenous cefepime and metronidazole for his right-sided aspiration pneumonia. 7. We will start thiamine 100 mg intravenous daily since he has chronic alcoholism and he may have some Wernicke's encephalopathy. 8. We will increase folic acid from 1 mg daily twice a day since he has malnutrition secondary to chronic alcoholism. 9. We will start intravenous fluids at 100 mL an hour since the patient has been experiencing hypotension with tachycardia and his oral intake is minimal. 10. Overall guarded prognosis. I spent 40 minutes in the care of this patient. MD BOBBY Lennon/KULDEEP /[id number] MTDD
[2019-12-12] MEDS: THIAMINE HCL INJ 100 MG/ML 2ML VIAL IV SCH (12:33)
[2019-12-12] MEDS: SODIUM CHLORIDE 0.9% 1000ML 1,000 ML IV SCH (12:33)
[2019-12-12] MEDS: METRONIDAZOLE 500MG/NS 100ML 100 ML IV SCH ×2 (14:35→21:41)
--- NOTE | 2019-12-12 19:02 | NUR ---
Received the patient in report.lyeing in the bed.stable condition.no pain voiced.call light within reach.instructed to call for assistance as needed.waiting for picc line insertion.
--- NOTE | 2019-12-12 20:14 | Diagnostic Imaging Report ---
EXAMINATION: CHEST XRAY LINE PLACEMENT INDICATION: ^PICC LINE PLACEMENT ^[id number] ^1929 COMPARISON: Chest x-ray 12/07/2019 FINDINGS: TUBES and LINES: New right upper extremity PICC tip terminates in the superior cavoatrial junction.. LUNGS: Normal lung volumes. Elevated right hemidiaphragm right basilar haziness. PLEURA: No pleural effusion or pneumothorax. HEART AND MEDIASTINUM: The cardiomediastinal silhouette is unremarkable. BONES AND SOFT TISSUES: No acute osseous lesion. Soft tissues are unremarkable. UPPER ABDOMEN: No free air under the diaphragm. IMPRESSION: New right upper extremity PICC, tip terminates in the superior cavoatrial junction. Elevated right hemidiaphragm, right basilar haziness is likely atelectasis rather than pneumonia. Signed by: Dawood Chappell DO on 12/12/2019 8:11 PM
--- NOTE | 2019-12-12 20:23 | NUR ---
PICC LINE PLACEMENT DONE TO RT.UPPER ARM .OK TO USE.
--- NOTE | 2019-12-12 21:01 | NUR ---
Blood javad and sent to the lab for ammonia and cbc.
[2019-12-12 21:05] LABS: BASOPHILS % 0.8 % (0.0-1.0); EOSINOPHILS # (AUTO) 0.1 (0.0-0.4); EOSINOPHILS % 2.6 % (0.0-6.0); HEMATOCRIT 29.9 % (38.2-49.6); LYMPHOCYTES # (AUTO) 0.7 (1.0-3.2); LYMPHOCYTES % 14.7 % (18.0-39.1); MEAN CORPUSCULAR HEMOGLOBIN 33.9 pg (28-32); MEAN CORPUSCULAR HGB CONC 33.4 g/dL (31-35); MEAN CORPUSCULAR VOLUME 101.4 fL (81-99); MONOCYTES # (AUTO) 0.9 (0.2-0.8); MONOCYTES % 18.1 % (4.4-11.3); NEUTROPHILS # (AUTO) 3.2 (2.1-6.9); NEUTROPHILS % 63.4 % (38.7-80.0); PLATELET COUNT 247 x10e3/uL (140-360); RED BLOOD COUNT 2.95 x10e6/uL (4.3-5.7); RED CELL DISTRIBUTION WIDTH 19.4 % (11.7-14.4)
[2019-12-13] MEDS: SODIUM CHLORIDE 0.9% 1000ML 1,000 ML IV SCH ×3 (00:13→15:00)
--- NOTE | 2019-12-13 02:08 | NUR ---
Repositioned.bed alarm on.call light within reach.stable condition.
[2019-12-13 04:00] VITALS: BP 121/96
[2019-12-13 05:23] LABS: BASOPHILS % 0.5 % (0.0-1.0); EOSINOPHILS # (AUTO) 0.2 (0.0-0.4); HEMOGLOBIN 9.6 g/dL (14.0-18.0); LYMPHOCYTES # (AUTO) 0.8 (1.0-3.2); LYMPHOCYTES % 13.2 % (18.0-39.1); MEAN CORPUSCULAR HEMOGLOBIN 33.8 pg (28-32); MEAN CORPUSCULAR HGB CONC 33.1 g/dL (31-35); MEAN CORPUSCULAR VOLUME 102.1 fL (81-99); MONOCYTES # (AUTO) 0.8 (0.2-0.8); MONOCYTES % 14.6 % (4.4-11.3); NEUTROPHILS # (AUTO) 3.9 (2.1-6.9); PLATELET COUNT 243 x10e3/uL (140-360); RED BLOOD COUNT 2.84 x10e6/uL (4.3-5.7); RED CELL DISTRIBUTION WIDTH 19.6 % (11.7-14.4)
[2019-12-13 05:48] LABS: ALANINE AMINOTRANSFERASE 49 IU/L (0-55); ALBUMIN 2.2 g/dL (3.5-5.0); ALBUMIN/GLOBULIN RATIO 0.8 (0.8-2.0); ALKALINE PHOSPHATASE 176 IU/L (40-150); ANION GAP 11.5 mmol/L (8-16); BLOOD UREA NITROGEN 10 mg/dL (7-26); BUN/CREATININE RATIO 15 (6-25); CALCIUM 8.5 mg/dL (8.4-10.2); CARBON DIOXIDE 27 mmol/L (22-29); CHLORIDE 98 mmol/L (98-107); CREATININE, SERUM 0.66 mg/dL (0.72-1.25); EST GLOMERULAR FILTRATION RATE > 60 ML/MIN (60-); GLUCOSE 105 mg/dL (74-118); POTASSIUM 3.5 mmol/L (3.5-5.1); SODIUM 133 mmol/L (136-145)
[2019-12-13 06:01] LABS: AMYLASE 12 U/L (25-125); LIPASE 205 U/L (8-78)
[2019-12-13] MEDS: METRONIDAZOLE 500MG/NS 100ML 100 ML IV SCH ×3 (06:13→22:59)
--- NOTE | 2019-12-13 07:00 | NUR ---
ASSUMED CARE. RESTING IN BED WITH EYES CLOSED. ACYANOTIC. EQUAL RISE AND FALL OF CHEST NOTED WITH EACH RESPIRATION. CALL LIGHT IN REACH. SIDE RAILS UP X2. BED ALARM ON. NO DISTRESS NOTED. BED LOW AND LOCKED.
--- NOTE | 2019-12-13 07:09 | NUR ---
Bed side shift report given to oncoming Rn.stable condition.
--- NOTE | 2019-12-13 08:24 | Diagnostic Imaging Report ---
TECHNIQUE: Frontal view of the chest. INDICATION: ^right sided pneumonia ^[id number] ^0615 ^Y COMPARISON: Prior day. DISCUSSION: Limited evaluation due to portable technique. Lines and hardware: Stable. Heart and mediastinum: Stable. Lungs and pleura: Interval improvement in the hazy right basilar medial opacity. Stable elevated right hemidiaphragm. Left lung is grossly clear. Negative for large effusion or pneumothorax. Soft tissues and bones: No acute abnormality. IMPRESSION: Interval improvement in the hazy opacity at the medial right lung base, likely related to atelectasis. No new infiltrate is noted. Stable right hemidiaphragm elevation. Signed by: oCrbin Luna MD on 12/13/2019 8:21 AM
[2019-12-13 08:30] VITALS: BP_SYST 110; BP_SYST 143; BP_DIAS 78; BP_DIAS 82
[2019-12-13] MEDS: PANTOPRAZOLE SOD 40 MG TABEC PO SCH (08:30)
[2019-12-13 08:37] VITALS: BP 110/82
--- NOTE | 2019-12-13 09:00 | NUR ---
PATIENT RESTING IN BED WITH EYES CLOSED. AROUSED PATIENT TO ADMINISTER MEDICATIONS. ALSO INFORMED PATIENT THAT BREAKFAST WAS AT BEDSIDE AND ENCOURAGED HIM TO EAT. PATIENT RESPONDS, "YOU KNOW I DON'T EAT WHEN I WAKE UP."
[2019-12-13] MEDS: CYANOCOBALAMIN 1,000 MCG TAB PO SCH (09:02)
[2019-12-13] MEDS: NICOTINE 14 MG/EA PATCH TOP SCH (09:02)
[2019-12-13] MEDS: THIAMINE HCL INJ 100 MG/ML 2ML VIAL IV SCH (09:02)
[2019-12-13] MEDS: FOLIC ACID 1 MG TAB PO SCH ×2 (09:02→16:47)
[2019-12-13] MEDS: LACTULOSE SYRUP 20 GM/30 ML UDC PO SCH ×2 (09:02→16:47)
[2019-12-13] MEDS: LIDOCAINE 4% PATCH TP SCH (09:03)
[2019-12-13] MEDS: BALSAM PERU/CASTOR OIL 60 GM OINT...G. TP SCH (09:03)
[2019-12-13] MEDS: CEFEPIME 1GM/NS 0.9% 50 ML 50 ML IV SCH ×2 (10:15→22:12)
[2019-12-13 11:53] VITALS: BP 122/67
--- NOTE | 2019-12-13 12:34 | NUR ---
SPOKE WITH COUSIN LYDIA MARTIN [phone] WHOM STATES HER MOTHER IS HIS AUNT LORIE BUT IS IN HER 80'S AND DOES NOT ANSWER THE PHONE. WILL CONTACT THE BUSINESS OFFICE AND HAVE THEM FIX FACE SHEET TO INCLUDE THE COUSIN AND STEP BROTHER AJMIE [phone].
[2019-12-13 15:23] VITALS: BP 120/79
--- NOTE | 2019-12-13 19:45 | NUR ---
BEDSIDE SHIFT REPORT RECEIVED FROM DAY RN.RESPIRATIONS ARE EVEN AND UNLABORED. PT IS ALERT AND ORIENTED X2. RT UPPER ARM DL PICC PRESENT- SITE HEALTHY. PT TURNED Q 2-3 HRS. PT INCONTINENT OF URINE IN DAIPER. PERICARE GIVEN.CALL LIGHT WITHIN REACH. BED IN LOW POSITION. BED ALARM ON.
[2019-12-13 20:00] VITALS: BP 108/67
[2019-12-14] VITALS (7 sets, daily range): BP systolic 99–140; BP diastolic 76–93
[2019-12-14] MEDS: SODIUM CHLORIDE 0.9% 1000ML 1,000 ML IV SCH ×3 (02:37→22:29)
[2019-12-14] MEDS: TRAMADOL HCL 50 MG TAB PO PRN ×2 (02:51→08:51)
[2019-12-14] MEDS: METRONIDAZOLE 500MG/NS 100ML 100 ML IV SCH ×3 (05:21→22:00)
[2019-12-14] MEDS: THIAMINE HCL INJ 100 MG/ML 2ML VIAL IV SCH (08:23)
[2019-12-14] MEDS: NICOTINE 14 MG/EA PATCH TOP SCH (08:23)
[2019-12-14] MEDS: PANTOPRAZOLE SOD 40 MG TABEC PO SCH (08:23)
[2019-12-14] MEDS: LIDOCAINE 4% PATCH TP SCH (08:23)
[2019-12-14] MEDS: CYANOCOBALAMIN 1,000 MCG TAB PO SCH (08:23)
[2019-12-14] MEDS: LACTULOSE SYRUP 20 GM/30 ML UDC PO SCH ×2 (08:24→16:09)
[2019-12-14] MEDS: BALSAM PERU/CASTOR OIL 60 GM OINT...G. TP SCH (08:25)
[2019-12-14] MEDS: FOLIC ACID 1 MG TAB PO SCH ×2 (08:25→16:09)
[2019-12-14] MEDS: CEFEPIME 1GM/NS 0.9% 50 ML 50 ML IV SCH ×2 (08:34→22:29)
--- NOTE | 2019-12-14 09:14 | NUR ---
SPOKE WIHT COUSIN, SHE STATES THE PLAN WILL BE TO RETURN TO HIS OWN APARTMENT AND SHE AND HIS BROTHER WILL TAKE TURNS STAYING WITH HIM, GAVE CHOICE FOR ICON WHEN NEEDED.
--- NOTE | 2019-12-14 09:49 | NUR ---
Pt unavailable at this time. Physical therapy at bedside. I will follow up as able. LUIGI PALAFOX Patient Transition Specialist Spiritual Care Department O: [phone]
--- NOTE | 2019-12-14 19:40 | NUR ---
BEDSIDE SHIFT REPORT RECEIVED FROM DAY SHIFT. PT IS ALERT AND ORIENTED X2. REORIENTED TO TIME. RESPIRATIONS ARE EVEN AND UNLABORED. PT HAD LOOSE BROWN STOOL X1. PT VOID PER URINAL 100 ML. REDDNESS IN GROIN. CREAM APPLIED. DIAPER CHANGED X1. PERICARE GIVEN.RT UPPER ARM DL PICC. DRESSING DRY AND INTACT. CALL LIGHT WITHIN REACH. BED LOCKED AND IN LOW POSITION. BED ALARM ON.
[2019-12-15] VITALS (9 sets, daily range): BP systolic 114–134; BP diastolic 75–85
[2019-12-15] MEDS: METRONIDAZOLE 500MG/NS 100ML 100 ML IV SCH ×3 (06:04→22:08)
[2019-12-15] MEDS: LACTULOSE SYRUP 20 GM/30 ML UDC PO SCH ×2 (08:25→17:08)
[2019-12-15] MEDS: THIAMINE HCL INJ 100 MG/ML 2ML VIAL IV SCH (08:25)
[2019-12-15] MEDS: CYANOCOBALAMIN 1,000 MCG TAB PO SCH (08:25)
[2019-12-15] MEDS: SODIUM CHLORIDE 0.9% 1000ML 1,000 ML IV SCH ×2 (08:25→22:26)
[2019-12-15] MEDS: PANTOPRAZOLE SOD 40 MG TABEC PO SCH (08:25)
[2019-12-15] MEDS: FOLIC ACID 1 MG TAB PO SCH ×2 (08:25→17:08)
[2019-12-15] MEDS: NICOTINE 14 MG/EA PATCH TOP SCH (08:26)
[2019-12-15] MEDS: BALSAM PERU/CASTOR OIL 60 GM OINT...G. TP SCH (08:27)
[2019-12-15] MEDS: LIDOCAINE 4% PATCH TP SCH (08:27)
[2019-12-15] MEDS: CEFEPIME 1GM/NS 0.9% 50 ML 50 ML IV SCH ×2 (08:28→23:06)
--- NOTE | 2019-12-15 09:10 | NUR ---
Pt. expressed no spiritual or emotional concerns at this time. Babbitter reminded pt about how to reach pharmacy picking tech, if needed. No need to follow at this time. LUIGI Garcia Spiritual Care Department O: [phone]
--- NOTE | 2019-12-15 13:30 | NUR ---
FAXED CLINICALS TO [facility] TO BE DISCHARGED ON FRIDAY
[2019-12-15 15:53] LABS: ALANINE AMINOTRANSFERASE 36 IU/L (0-55); ALBUMIN 2.1 g/dL (3.5-5.0); ALBUMIN/GLOBULIN RATIO 0.7 (0.8-2.0); ALKALINE PHOSPHATASE 176 IU/L (40-150); BLOOD UREA NITROGEN < 5 mg/dL (7-26); CALCIUM 8.3 mg/dL (8.4-10.2); CARBON DIOXIDE 26 mmol/L (22-29); CHLORIDE 100 mmol/L (98-107); CREATININE, SERUM 0.57 mg/dL (0.72-1.25); EST GLOMERULAR FILTRATION RATE > 60 ML/MIN (60-); GLUCOSE 119 mg/dL (74-118); SODIUM 135 mmol/L (136-145)
[2019-12-15 15:54] LABS: BUN/CREATININE RATIO 9 (6-25)
[2019-12-15] MEDS ORDERED: POTASSIUM CHLORIDE 10MEQ EA PO NR ×3 (17:00→21:00)
[2019-12-15] MEDS: TRAMADOL HCL 50 MG TAB PO PRN (17:07)
[2019-12-15] MEDS ORDERED: POTASSIUM CHLORIDE 10MEQ EA PO ONE (22:30)
[2019-12-16] VITALS (7 sets, daily range): BP systolic 130–136; BP diastolic 82–91
--- NOTE | 2019-12-16 00:20 | NUR ---
HAD A BOWEL MOVEMENT.CLEANSED .ALLEVYN FOAM CHANGED.VOIDED IN URINAL.BED ALARM ON.CALL LIGHT WITHIN REACH.Dr.M REIS WAS IN THE UNIT.DENIED ANY NEEDS.
[2019-12-16] MEDS: SODIUM CHLORIDE 0.9% 1000ML 1,000 ML IV SCH ×2 (05:01→19:25)
[2019-12-16 05:14] LABS: BASOPHILS # (AUTO) 0.1 (0.0-0.1); BASOPHILS % 1.1 % (0.0-1.0); EOSINOPHILS # (AUTO) 0.1 (0.0-0.4); EOSINOPHILS % 2.2 % (0.0-6.0); HEMATOCRIT 27.3 % (38.2-49.6); HEMOGLOBIN 9.4 g/dL (14.0-18.0); LYMPHOCYTES # (AUTO) 0.8 (1.0-3.2); LYMPHOCYTES % 12.2 % (18.0-39.1); MEAN CORPUSCULAR HEMOGLOBIN 34.9 pg (28-32); MEAN CORPUSCULAR HGB CONC 34.4 g/dL (31-35); MEAN CORPUSCULAR VOLUME 101.5 fL (81-99); MONOCYTES # (AUTO) 0.8 (0.2-0.8); MONOCYTES % 11.9 % (4.4-11.3); NEUTROPHILS # (AUTO) 4.5 (2.1-6.9); NEUTROPHILS % 72.3 % (38.7-80.0); PLATELET COUNT 275 x10e3/uL (140-360); RED BLOOD COUNT 2.69 x10e6/uL (4.3-5.7); RED CELL DISTRIBUTION WIDTH 19.2 % (11.7-14.4)
[2019-12-16 05:39] LABS: ANION GAP 10.9 mmol/L (8-16); BLOOD UREA NITROGEN < 5 mg/dL (7-26); CALCIUM 8.1 mg/dL (8.4-10.2); CARBON DIOXIDE 28 mmol/L (22-29); CHLORIDE 100 mmol/L (98-107); CREATININE, SERUM 0.52 mg/dL (0.72-1.25); EST GLOMERULAR FILTRATION RATE > 60 ML/MIN (60-); GLUCOSE 94 mg/dL (74-118); SODIUM 136 mmol/L (136-145)
[2019-12-16 05:48] LABS: BUN/CREATININE RATIO 10 (6-25); POTASSIUM 2.9 mmol/L (3.5-5.1)
[2019-12-16] MEDS: METRONIDAZOLE 500MG/NS 100ML 100 ML IV SCH ×3 (06:12→21:24)
--- NOTE | 2019-12-16 06:34 | NUR ---
CALLED ANSWERING SERVICE AND NOTIFIED CRITICAL LAB VALUE K 2.9.
--- NOTE | 2019-12-16 07:00 | NUR ---
RECEIVED BEDSIDE SHIFT REPORT FROM OFF GOING NIGHT NURSE. RESPIRATIONS EVEN AND NONLABORED. PATIENT ABLE TO VOICE NEEDS. PATIENT IN STABLE CONDITION, NO S/S OF DISTRESS NOTED. IV FLUIDS INFUSING, SITE ASYMPTOMATIC AND PATENT,TRANSPARENT DRESSING C/D/I. FOAM DRESSING APPLIED TO THE RIGHT POSTERIOR GLUTEAL. BED ALARM APPLIED. BED IN LOWEST POSITION AND LOCKED, SIDE RAILS X2 NON SKID SOCKS APPLIED. CALL LIGHT WITHIN REACH.
--- NOTE | 2019-12-16 07:22 | NUR ---
BED SIDE SHIFT REPORT GIVEN TO ONCOMING RN.STABLE CONDITION.RESTING NOW
[2019-12-16] MEDS: PANTOPRAZOLE SOD 40 MG TABEC PO SCH (07:30)
[2019-12-16] MEDS ORDERED: POTASSIUM CHLORIDE 20 MEQ TAB CR PO ONE (08:00)
--- NOTE | 2019-12-16 08:15 | NUR ---
DR. Ana REIS NOTIFIED ABOUT THE POTASSIUM - 2.9. RECEIVED NEW ORDERS.
[2019-12-16] MEDS: LACTULOSE SYRUP 20 GM/30 ML UDC PO SCH ×2 (09:10→16:47)
[2019-12-16] MEDS: THIAMINE HCL INJ 100 MG/ML 2ML VIAL IV SCH (09:10)
[2019-12-16] MEDS: NICOTINE 14 MG/EA PATCH TOP SCH (09:10)
[2019-12-16] MEDS: LIDOCAINE 4% PATCH TP SCH (09:10)
[2019-12-16] MEDS: BALSAM PERU/CASTOR OIL 60 GM OINT...G. TP SCH (09:10)
[2019-12-16] MEDS: CYANOCOBALAMIN 1,000 MCG TAB PO SCH (09:10)
[2019-12-16] MEDS: FOLIC ACID 1 MG TAB PO SCH ×2 (09:10→16:47)
[2019-12-16] MEDS ORDERED: POTASSIUM CHLORIDE 20 MEQ TAB CR PO SCH (10:00)
[2019-12-16] MEDS: CEFEPIME 1GM/NS 0.9% 50 ML 50 ML IV SCH ×2 (11:19→22:25)
[2019-12-16] MEDS: POTASSIUM CHLORIDE 20 MEQ TAB CR PO SCH ×3 (11:19→13:49)
[2019-12-16] MEDS: TRAMADOL HCL 50 MG TAB PO PRN ×2 (12:09→21:28)
--- NOTE | 2019-12-16 17:50 | NUR ---
Nutrition Intervention Note RD Recommendation(s) for Physician: -Recommend low sodium diet -Recommend Silvano BID to promote wound healing -Recommend Ensure Compact BID for added nutrition Plan of Care: RD following, monitoring for tolerance and adequacy, oral supplement recommendation Nutrition reason for involvement: follow up RD Assessment 12/16/19: Follow up. Chart reviewed. Attempted to speak to pt, but he was sleeping at time of visit for follow-up assessment and did not arouse to greeting. Spoke to RN who reported pt is eating well at this time. Pt has not been weighed since 12/03. Current recommendations remain appropriate. Will continue to monitor. (12/09/19) Pt is a 64 year old male admitted with alcohol withdrawal, pancreatitis, tachycardia, elevated total bilirubin, and vomiting. Attempted to speak to pt, but he was sleeping at time of visit and did not arouse to greeting. RN stated pt did not eat breakfast this morning and did not eat lunch yet since he has mainly been sleeping all day. Pt has varied intake recorded ranging from 0-100% during admission. There are no previous weights in chart. Per wound care note, pt has a stage 2 right gluteal pressure ulcer. Recommend Silvano BID to promote wound healing and Ensure Compact BID for added nutrition. Will continue to monitor. Principal Problems/Diagnoses: alcohol withdrawal, pancreatitis, tachycardia, total bilirubin, and vomiting PMH: Liver disease, Alcoholism, Hypertension. GI: soft/non-tender/round abdomen Skin: stage 2 gluteal pressure ulcer (wound care note 12/06) Labs: (12/15) Na 136 K 2.9, BUN <5, Cr 0.52, Glu 94, Ca 8.1 (12/12) Lipase 205 (12/08) Na 133, K 3.4, BUN 10, Cr 0.59, Glu 108, Ca 8.8 (12/07) Lipase 490 Meds: antibiotic, thiamine, folic acid, lactulose, vitamin B12, protonix, zofran Ht: 71 in Wt: 161 lbs BMI: 22.5 kg/m2 IBW: 172 lbs Malnutrition Evaluation (12/09/19) Unable to obtain nutrition history from pt at this time. Will re-evaluate at follow-up as appropriate. Nutrition Prescription (Diet Order): regular Estimated Nutritional Needs: 6586-0889 calories/day (30-35 kcal/kg CBW) 88-110 g protein/day (1.2-1.5 g pro/kg CBW) Diet Adequacy: pt is eating well per RN Tolerance: tolerating PO Diet Education Needs Assessment: RD is available for diet education as needed Nutrition Care Level: low Nutrition Diagnosis: Increased nutrient needs related to increased demand for protein and kcal as evidenced by pressure ulcer. Goal: Patient will meet 75-100% of estimated needs by follow up Progress: progressing Interventions: -sodium -modified diet, Commercial beverage Monitoring/Evaluation: -Total energy intake, Total protein intake, Modified diet, Liquid supplement, Weight change Signed: Bailey Morrow RD, LD
[2019-12-16 18:38] LABS: ANION GAP 9.9 mmol/L (8-16); BLOOD UREA NITROGEN < 5 mg/dL (7-26); CALCIUM 8.2 mg/dL (8.4-10.2); CARBON DIOXIDE 27 mmol/L (22-29); CHLORIDE 102 mmol/L (98-107); CREATININE, SERUM 0.57 mg/dL (0.72-1.25); EST GLOMERULAR FILTRATION RATE > 60 ML/MIN (60-); GLUCOSE 118 mg/dL (74-118); POTASSIUM 3.9 mmol/L (3.5-5.1); SODIUM 135 mmol/L (136-145)
[2019-12-16 18:39] LABS: BUN/CREATININE RATIO 9 (6-25)
--- NOTE | 2019-12-16 19:16 | NUR ---
Received the patient in report.lyeing in the bed.no pain voiced.bed alarm on.bed locked and in lowest position.phone and call light within reach.instructed to call for assistance as needed.iv fluid running.
--- NOTE | 2019-12-16 19:43 | NUR ---
PT WORKED WITH THE PATIENT X2 TIMES DURING THE DAY SHIFT.
--- NOTE | 2019-12-16 19:43 | NUR ---
COMPLETED BEDSIDE SHIFT REPORT AND ROUNDING WITH ONCOMING NIGHT NURSE. RESPIRATIONS EVEN AND NONLABORED. PATIENT ABLE TO VOICE NEEDS. PATIENT IN STABLE CONDITION, NO S/S OF DISTRESS NOTED. IV FLUIDS INFUSING, SITE ASYMPTOMATIC AND PATENT,TRANSPARENT DRESSING C/D/I. FOAM DRESSING APPLIED TO THE RIGHT POSTERIOR GLUTEAL. BED ALARM APPLIED. BED IN LOWEST POSITION AND LOCKED, SIDE RAILS X2 NON SKID SOCKS APPLIED. CALL LIGHT WITHIN REACH.
[2019-12-17] VITALS (9 sets, daily range): BP systolic 126–146; BP diastolic 83–93
[2019-12-17] MEDS: SODIUM CHLORIDE 0.9% 1000ML 1,000 ML IV SCH ×3 (00:59→22:40)
[2019-12-17 05:49] LABS: ALANINE AMINOTRANSFERASE 27 IU/L (0-55); ALBUMIN 2.1 g/dL (3.5-5.0); ALBUMIN/GLOBULIN RATIO 0.8 (0.8-2.0); ALKALINE PHOSPHATASE 175 IU/L (40-150); ANION GAP 9.5 mmol/L (8-16); BLOOD UREA NITROGEN < 5 mg/dL (7-26); CALCIUM 8.3 mg/dL (8.4-10.2); CARBON DIOXIDE 29 mmol/L (22-29); CHLORIDE 100 mmol/L (98-107); CREATININE, SERUM 0.55 mg/dL (0.72-1.25); EST GLOMERULAR FILTRATION RATE > 60 ML/MIN (60-); GLUCOSE 91 mg/dL (74-118); POTASSIUM 3.5 mmol/L (3.5-5.1); SODIUM 135 mmol/L (136-145)
[2019-12-17 05:50] LABS: BUN/CREATININE RATIO 9 (6-25)
[2019-12-17] MEDS: METRONIDAZOLE 500MG/NS 100ML 100 ML IV SCH ×3 (06:08→22:45)
--- NOTE | 2019-12-17 08:47 | NUR ---
DENIED FOR HOME HEALTH DUE TO HIGH DEDUCTIBLES BY [facility], LAMAR COMPLETE, CALL AND SPOKE WITH COUSIN LYDIA, SHE STATES SHE WILL BUY A BEDSIDE COMMODE AND DECLINED THE HOME HEALTH AND THERAPY DUE TO COST, STATES CANNOT AFFORD IT. WE CAN GIVE THE WALKER. SHE ALSO DECLINED THE OUT PATIENT THERAPY, WANTS TO MEET WITH THERAPY WHEN THEY COME TO ROOM AND GET TRAINED ON WHAT TO DO WITH HIM AT HOME. PLAN IS TO DISCHARGE HOME TODAY. SHE AGAIN STATES SHE LIVES CLOSER TO [place] AND WILL BE WITH HIM A COUPLE OF TIMES A WEEK AND BROTHER JAMIE LIVES NEXT DOOR TO HIM AND WILL BE WITH HIM DAILY.
--- NOTE | 2019-12-17 09:05 | NUR ---
Follow up visit. Pt hopes to discharge soon. Help Desk Internship reminded pt of how to reach mop handle assembler, if needed. No need to follow. LUIGI PALAFOX Help Desk Internship Spiritual Care Department O: [phone]
[2019-12-17] MEDS: LACTULOSE SYRUP 20 GM/30 ML UDC PO SCH ×2 (09:54→17:30)
[2019-12-17] MEDS: PANTOPRAZOLE SOD 40 MG TABEC PO SCH (09:55)
[2019-12-17] MEDS: FOLIC ACID 1 MG TAB PO SCH ×2 (09:56→17:30)
[2019-12-17] MEDS: NICOTINE 14 MG/EA PATCH TOP SCH (09:58)
[2019-12-17] MEDS: CYANOCOBALAMIN 1,000 MCG TAB PO SCH (09:58)
[2019-12-17] MEDS: LIDOCAINE 4% PATCH TP SCH (09:58)
[2019-12-17] MEDS: CEFEPIME 1GM/NS 0.9% 50 ML 50 ML IV SCH ×2 (10:03→22:03)
[2019-12-17] MEDS: THIAMINE HCL INJ 100 MG/ML 2ML VIAL IV SCH (10:03)
[2019-12-17] MEDS: BALSAM PERU/CASTOR OIL 60 GM OINT...G. TP SCH (12:49)
[2019-12-18] VITALS (8 sets, daily range): BP systolic 117–147; BP diastolic 81–88
--- NOTE | 2019-12-18 00:21 | NUR ---
NEW ORDER RECEIVED FROM SMILEY BARRETO TO CHANGE FREQUENCY OF LACTULOSE TO DAILY
[2019-12-18] MEDS: METRONIDAZOLE 500MG/NS 100ML 100 ML IV SCH ×3 (06:15→21:45)
[2019-12-18] MEDS: SODIUM CHLORIDE 0.9% 1000ML 1,000 ML IV SCH ×2 (06:30→20:41)
[2019-12-18] MEDS: LACTULOSE SYRUP 20 GM/30 ML UDC PO SCH (09:00)
[2019-12-18] MEDS: PANTOPRAZOLE SOD 40 MG TABEC PO SCH (09:17)
[2019-12-18] MEDS: FOLIC ACID 1 MG TAB PO SCH ×2 (09:17→17:01)
[2019-12-18] MEDS: CYANOCOBALAMIN 1,000 MCG TAB PO SCH (09:18)
[2019-12-18] MEDS: LIDOCAINE 4% PATCH TP SCH (09:19)
[2019-12-18] MEDS: NICOTINE 14 MG/EA PATCH TOP SCH (09:19)
[2019-12-18] MEDS: THIAMINE HCL INJ 100 MG/ML 2ML VIAL IV SCH (09:20)
[2019-12-18] MEDS: BALSAM PERU/CASTOR OIL 60 GM OINT...G. TP SCH (09:29)
[2019-12-18] MEDS: CEFEPIME 1GM/NS 0.9% 50 ML 50 ML IV SCH ×2 (10:34→22:46)
--- NOTE | 2019-12-18 13:51 | Progress Note ---
DATE: Internal Medicine Progress Note SUBJECTIVE: The patient has no complaints today. PHYSICAL EXAMINATION: HEART: Showed regular rhythm. Normal S1 and S2 sound. LUNGS: Clear bilaterally. ABDOMEN: Soft, nontender, no distention. EXTREMITIES: No evidence of cyanosis, edema, or trauma. VITAL SIGNS: Blood pressure 129/83, temperature 98.7, heart rate 93 per minute, respiratory rate 16 per minute, and oxygen saturation 95%. LABORATORY DATA: On the blood work, we have BMP; sodium 135, potassium 3.5, chloride 100, CO2 29, BUN 5, creatinine 0.55, glucose 94, and calcium 8.3. AST elevated at 62 lower than 79 before, ALT is 27, and alkaline phosphatase 175. Total protein 4.8 and albumin 2.7. Lipase is 205. On the microbiology we do not have any test report. A chest x-ray shows some evidence of improvement in the hazy opacity in the medial lung, likely related to atelectasis. No new infiltrates noted. Stable right hemidiaphragm elevation. The CT of the abdomen did show evidence of diverticulitis, pancreatitis, gallbladder sludge, and atelectasis. FINAL IMPRESSION: 1. Acute diverticulitis. 2. Acute pancreatitis, most likely secondary to alcohol. 3. Alcoholic hepatitis. 4. Hyponatremia. PLAN OF TREATMENT: We are going to continue with current medication regimen. The patient is on cefepime 1 g IV twice a day and metronidazole 500 g IV q.8 hours. Continue with normal saline 50 mL an hour, Balsam Riccardo/castor oil one application topically daily, vitamin B12 500 mcg daily, Lovenox 40 mg subcutaneously daily, folic acid 1 mg twice a day, lactulose 20 g daily, Lidoderm patch 12 hours on, 12 hours off, Nicoderm patch 40 mg daily, Zofran 4 mg p.o. q.4 hours as needed for nausea and vomiting, Protonix 40 mg daily, and thiamine 100 mg IV daily. We are going to continue monitoring the liver function test and the lipase. Case discussed with the patient. Time spent, 45 minutes. MD DANIEL Magana/KULDEEP /[id number]
--- NOTE | 2019-12-18 14:35 | Progress Note ---
DATE: 12/18/2019 Pulmonary Medicine Progress Note SUBJECTIVE: The patient was seen and examined at bedside. The patient ate about 1/2 of his diet. He is now on solids. The patient claims he has not drunk any alcohol for 20 days now. He is on normal saline 100 mL/h IV fluid. No respiratory distress. Currently on room air FiO2 with saturation 95%. REVIEW OF SYSTEMS: No GI bleed. No chest pain. OBJECTIVE: VITAL SIGNS: Afebrile, vital signs noted, reviewed per the chart record. GENERAL: In no acute distress, sitting in bed, mildly weak, but calm. HEENT: Normocephalic, atraumatic. NECK: Supple. Throat midline. LUNGS: Bilateral air entry, rare rales. CARDIOVASCULAR: S1, S2. No murmurs, rubs, or gallops. ABDOMEN: Soft, nontender now. EXTREMITIES: No clubbing. No cyanosis. There is really no edema at all. INTEGUMENT: No rash, some venous stasis changes, mild. LABORATORY DATA: Hematocrit 27 and platelets 225. 3.5 potassium, 0.55 creatinine yesterday. Last lipase had come down to 205 from 1303. IMAGING DATA: Chest x-ray most recently showed minimally increased fluid congestion with elevated right hemidiaphragm and atelectasis. IMPRESSION AND PLAN: 1. Admit with acute pancreatitis. 2. History of alcohol dependency. 3. Atelectasis, right hemidiaphragm elevation. 4. Mild overload versus just poor x-ray quality. 5. Alcoholic liver disease. 6. Hypertension. 7. Aspiration pneumonia, present on admission, possible gram-negative. 8. Tobacco abuse, chronic. Continue antibiotics. IV fluid per others, possibly can consider weaning as he is improved. Vitamins are to continue. Lung expansion. Repeat chest x-ray in morning. Srinath Parsons MD GMN/MODL /[id number]
[2019-12-18] MEDS: ENOXAPARIN SOD INJ 40 MG/0.4 ML SYR SC SCH (17:01)
[2019-12-19] VITALS (11 sets, daily range): BP systolic 132–143; BP diastolic 81–92
--- NOTE | 2019-12-19 00:15 | NUR ---
SPOKE TO SMILEY BARRETO AT THIS TIME REGARDING PRN PAIN MED. NEW ORDER RECEIVED FOR TRAMADOL 50MG PO Q6H PRN.
[2019-12-19] MEDS ORDERED: TRAMADOL HCL 50 MG TAB PO PRN (00:30)
[2019-12-19] MEDS: METRONIDAZOLE 500MG/NS 100ML 100 ML IV SCH ×3 (05:45→22:00)
[2019-12-19 07:29] LABS: ALANINE AMINOTRANSFERASE 20 IU/L (0-55); ALBUMIN 2.1 g/dL (3.5-5.0); ALBUMIN/GLOBULIN RATIO 0.8 (0.8-2.0); ALKALINE PHOSPHATASE 157 IU/L (40-150); ANION GAP 8.8 mmol/L (8-16); BLOOD UREA NITROGEN < 5 mg/dL (7-26); CARBON DIOXIDE 31 mmol/L (22-29); CHLORIDE 98 mmol/L (98-107); CREATININE, SERUM 0.53 mg/dL (0.72-1.25); EST GLOMERULAR FILTRATION RATE > 60 ML/MIN (60-); GLUCOSE 88 mg/dL (74-118); SODIUM 135 mmol/L (136-145)
[2019-12-19 07:55] LABS: BUN/CREATININE RATIO 9 (6-25); POTASSIUM 2.8 mmol/L (3.5-5.1)
[2019-12-19] MEDS: CYANOCOBALAMIN 1,000 MCG TAB PO SCH (08:01)
[2019-12-19] MEDS: LACTULOSE SYRUP 20 GM/30 ML UDC PO SCH (08:01)
[2019-12-19] MEDS: NICOTINE 14 MG/EA PATCH TOP SCH (08:01)
[2019-12-19] MEDS: PANTOPRAZOLE SOD 40 MG TABEC PO SCH (08:01)
[2019-12-19] MEDS: LIDOCAINE 4% PATCH TP SCH (08:01)
[2019-12-19] MEDS: FOLIC ACID 1 MG TAB PO SCH ×2 (08:01→16:30)
[2019-12-19] MEDS: THIAMINE HCL INJ 100 MG/ML 2ML VIAL IV SCH (08:01)
--- NOTE | 2019-12-19 09:23 | Diagnostic Imaging Report ---
EXAMINATION: CHEST SINGLE (PORTABLE) INDICATION: Evaluation for pneumonia versus atelectasis. COMPARISON: Multiple prior chest radiograph including most recent on 12/13/2019. FINDINGS: TUBES and LINES: Right PICC is unchanged. LUNGS: Chronic elevation of the right hemidiaphragm. Low lung volumes and bronchovascular crowding and pulmonary vascular congestion. Hazy opacification of the right lung base and retrocardiac left lung. PLEURA: No pleural effusion or pneumothorax. HEART AND MEDIASTINUM: The cardiomediastinal silhouette is unremarkable. There are atherosclerotic calcifications within the aorta. BONES AND SOFT TISSUES: No acute osseous lesion. Soft tissues are unremarkable. UPPER ABDOMEN: No free air under the diaphragm. IMPRESSION: 1. Low lung volumes and bronchovascular crowding and pulmonary vascular congestion. 2. Hazy opacification the bilateral lung bases which may represent atelectasis or developing multifocal pneumonia in the proper clinical context. Signed by: Jacinto Pillai MD on 12/19/2019 9:20 AM
[2019-12-19] MEDS ORDERED: POTASSIUM CHLORIDE 20 MEQ TAB CR PO ONE (09:30)
[2019-12-19] MEDS: BALSAM PERU/CASTOR OIL 60 GM OINT...G. TP SCH (09:50)
[2019-12-19] MEDS: CEFEPIME 1GM/NS 0.9% 50 ML 50 ML IV SCH ×2 (10:43→23:00)
[2019-12-19] MEDS ORDERED: POTASSIUM CHLORIDE 20 MEQ TAB CR PO SCH (11:00)
--- NOTE | 2019-12-19 13:16 | NUR ---
Pulmonary Medicine Progress Note DATE: 12/18/2019 SUBJECTIVE: The patient was seen and examined at bedside. NS at 50 / hr ivf 2 L/min oxygen no resp distress eating, BM 2 days ago REVIEW OF SYSTEMS: No GI bleed. No chest pain. OBJECTIVE: VITAL SIGNS: vital signs noted, reviewed per the chart record. GENERAL: no acute distress, sitting in bed HEENT: Normocephalic, atraumatic. NECK: Supple. Throat midline. LUNGS: Bilateral air entry, rare rales. CARDIOVASCULAR: S1, S2. No murmurs, rubs, or gallops. ABDOMEN: Soft, nontender now. EXTREMITIES: No clubbing. No cyanosis. no edema INTEGUMENT: No rash, no purpura LABORATORY DATA: k 2.8. cr .5 IMAGING DATA: Chest x-ray with LLL atelectasis vs pneumonia with elevated right hemidiaphragm IMPRESSION AND PLAN: 1. Admit with acute pancreatitis. 2. History of alcohol dependency. 3. Atelectasis, right hemidiaphragm elevation. 4. Mild overload versus just poor x-ray quality. 5. Alcoholic liver disease. 6. Hypertension. 7. Aspiration pneumonia, present on admission, possible gram-negative. 8. Tobacco abuse, chronic. 9. pneumonia LLL vs atelectasis Continue antibiotics. IV fluid low dose ok Vitamins are to continue Lung expansion Repeat chest x-ray intermittently lung expansion fix k Dr Weiss back tomorrow
[2019-12-19] MEDS: SODIUM CHLORIDE 0.9% 1000ML 1,000 ML IV SCH (15:34)
--- NOTE | 2019-12-19 15:45 | Consultation ---
DATE OF CONSULTATION: Internal Medicine Progress Note SUBJECTIVE: The patient is very, very confused today. He pulled out the telemetry. PHYSICAL EXAMINATION: VITAL SIGNS: Blood pressure 132/81, temperature 38.8, heart rate 86 per minute, respiratory rate 20 per minute, oxygen saturation 96%. HEART: Showed regular rate and rhythm. Normal S1, S2 sound. LUNGS: Clear bilaterally. ABDOMEN: soft. EXTREMITIES: Show no edema. LABORATORY STUDIES: On blood work, we have CBC; white blood count 6.29, hemoglobin 9.4, hematocrit 27.3, platelet count 275,000. On the BMP; sodium 135, potassium 2.8, chloride 98, CO2 31, BUN 5, creatinine 0.53, GFR is 60, glucose 88. Calcium 8.0, total bilirubin 3.2. AST is 50 down from 62 yesterday, ALT 20, down to 27, alkaline phosphatase 157, total protein 4.7, albumin 2.1, globulin 2.6, lipase is normal at 74, magnesium was 1.4. FINAL IMPRESSION: 1. Acute diverticulitis. 2. Acute pancreatitis secondary to alcohol abuse. 3. Alcoholic hepatitis. 4. Hyponatremia. 5. Hypokalemia. PLAN OF TREATMENT: We are going to replace the potassium. Recheck BMP, magnesium level tomorrow. We are going to continue monitoring liver function tests, which are coming down. He is on cefepime 1 g IV twice a day, metronidazole 500 mg IV q.8 hours due to the diverticulitis. Continue normal saline for 80 mL an hour, continue one application daily, vitamin B12 500 mcg daily, Lovenox 40 mg subcutaneously daily, folic acid 1 mg twice a day, lactulose 20 g daily, Lidoderm patch 12 hours on, 12 hours off, Nicoderm patch 40 mg daily, Zofran 4 mg p.o. q.4 hours as needed for nausea and vomiting, Protonix 40 mg daily, potassium chloride has been given today. We are going to recheck the BMP and magnesium level tomorrow. Time spent 45 minutes. MD DANIEL Magana/KULDEEP /[id number]
[2019-12-19] MEDS: ENOXAPARIN SOD INJ 40 MG/0.4 ML SYR SC SCH (16:30)
[2019-12-19 18:59] LABS: ANION GAP 11.9 mmol/L (8-16); BLOOD UREA NITROGEN 5 mg/dL (7-26); BUN/CREATININE RATIO 8 (6-25); CALCIUM 8.3 mg/dL (8.4-10.2); CARBON DIOXIDE 27 mmol/L (22-29); CHLORIDE 99 mmol/L (98-107); EST GLOMERULAR FILTRATION RATE > 60 ML/MIN (60-); GLUCOSE 114 mg/dL (74-118); SODIUM 134 mmol/L (136-145)
[2019-12-19 19:03] LABS: POTASSIUM 3.9 mmol/L (3.5-5.1)
--- NOTE | 2019-12-19 22:55 | NUR ---
SMILEY BARRETO DOING ROUNDS. NEW ORDER RECEIVED FOR MAGNESIUM SULFATE 2GM IV ONCE.
[2019-12-19] MEDS ORDERED: MAGNESIUM SULFATE 2GM/50ML 50 ML IV ONE (23:00)
[2019-12-20] VITALS: BP 142/91
[2019-12-20 04:00] VITALS: BP 120/76
[2019-12-20] MEDS: METRONIDAZOLE 500MG/NS 100ML 100 ML IV SCH (06:09)
[2019-12-20 06:43] LABS: ANION GAP 9.4 mmol/L (8-16); BLOOD UREA NITROGEN < 5 mg/dL (7-26); BUN/CREATININE RATIO 9 (6-25); CALCIUM 8.1 mg/dL (8.4-10.2); CARBON DIOXIDE 31 mmol/L (22-29); CHLORIDE 99 mmol/L (98-107); CREATININE, SERUM 0.54 mg/dL (0.72-1.25); EST GLOMERULAR FILTRATION RATE > 60 ML/MIN (60-); GLUCOSE 98 mg/dL (74-118); POTASSIUM 3.4 mmol/L (3.5-5.1); SODIUM 136 mmol/L (136-145)
--- NOTE | 2019-12-20 07:00 | NUR ---
RECEIVED BEDSIDE SHIFT REPORT FROM OFF GOING NIGHT NURSE. PATIENT ABLE TO VOICE NEEDS. RESPIRATIONS EVEN AND NONLABORED. PATIENT IN STABLE CONDITION, NO S/S OF DISTRESS NOTED. IV FLUIDS INFUSING, SITE ASYMPTOMATIC AND PATENT, TRANSPARENT DRESSING C/D/I. SCDs APPLIED TO BILATERAL LEGS. BED ALARM APPLIED. BED IN LOWEST POSITION AND LOCKED, SIDE RAILS X2, NONSKID SOCKS APPLIED. CALL LIGHT WITHIN REACH.
[2019-12-20] MEDS: PANTOPRAZOLE SOD 40 MG TABEC PO SCH (07:30)
[2019-12-20 08:02] VITALS: BP 125/85
[2019-12-20 08:10] VITALS: BP 125/85
[2019-12-20] MEDS: NICOTINE 14 MG/EA PATCH TOP SCH (08:49)
[2019-12-20] MEDS: THIAMINE HCL INJ 100 MG/ML 2ML VIAL IV SCH (08:49)
[2019-12-20] MEDS: CYANOCOBALAMIN 1,000 MCG TAB PO SCH (08:49)
[2019-12-20] MEDS: LACTULOSE SYRUP 20 GM/30 ML UDC PO SCH (08:49)
[2019-12-20] MEDS: FOLIC ACID 1 MG TAB PO SCH (08:49)
[2019-12-20] MEDS: BALSAM PERU/CASTOR OIL 60 GM OINT...G. TP SCH (08:50)
[2019-12-20] MEDS: LIDOCAINE 4% PATCH TP SCH (08:50)
--- NOTE | 2019-12-20 09:31 | Diagnostic Imaging Report ---
EXAMINATION: CHEST SINGLE (PORTABLE) INDICATION: Pneumonia COMPARISON: Multiple prior chest radiograph, most recently 12/19/2019 FINDINGS: LINES/TUBES:Right PICC line terminates at the superior cavoatrial junction. LUNGS:The lungs are well-inflated. Unchanged elevation of the right hemidiaphragm. Unchanged mild bibasilar opacities. PLEURA:No pleural effusion or pneumothorax. MEDIASTINUM:The cardiomediastinal silhouette appears unchanged in size and shape. BONES/SOFT TISSUES:No acute osseous injury. ABDOMEN:No free air under the diaphragm. IMPRESSION: Unchanged mild bibasilar opacities, more likely atelectasis than superimposed aspiration or pneumonia.. Signed by: Tom He MD on 12/20/2019 9:27 AM
[2019-12-20] MEDS: CEFEPIME 1GM/NS 0.9% 50 ML 50 ML IV SCH (10:00)
--- NOTE | 2019-12-20 11:08 | NUR ---
REPORT GIVEN TO ZEINA TORRES. -PATIENT TRANSFERRED OFF THE UNIT @ 1100 VIA BED TO ROOM 287. VITALS STABLE. PATIENT LEFT THE UNIT IN STABLE CONDITION, NO S/S OF DISTRESS NOTED. PATIENT ABLE TO VOICE NEEDS. RESPIRATIONS, EVEN AND NONLABORED.
[2019-12-20 11:58] VITALS: BP 136/85
--- NOTE | 2019-12-20 12:51 | NUR ---
Spoke with Dr. Maher this morning. States pt can go home today. Gave order to order RW and BSC. CM spoke to pt at bedside. Pt currently AAOx4 and answering all questions appropriately. States he wants to go home. Pt states his cousin Delia just bought him a brand new commode and that he has a rollator at home. CM explained the difference between a RW and rollator. Pt states he wants to use his rollator, declined RW at this time. BRIAN Mcmahon was updated.
--- NOTE | 2019-12-20 15:41 | NUR ---
Patient discharged home, Discharge order recvd from Dr Diallo Maher also he said to DC PICC line, Per CM Bedside commode and rolling walker already arranged, Patient Alert with no distress, PICC line removed, pressure dressing applied, no bleeding or bruises. Denies any pain, no distress, family here to pick him, transported via wheelchair to [facility], Per Dr Diallo Maher no new prescriptions
[2019-12-21] MEDS ORDERED: THIAMINE HCL 100 MG TAB PO SCH (09:00)
== END 2019-12-20 15:25 | disposition home or self-care (01) | DRG 177 ==
LOC: ER 19:01 → ERHOLD 22:34 → ICU 22:53 → MED/SURG 12-06 10:06 → MED/SURG3 12-19 14:45 → MED/SURG 12-19 14:51 → MED/SURG3 12-20 11:03
PROC: 02HV33Z Insertion of Infusion Device into Superior Vena Cava, Percutaneous Approach (ICD-10-PCS; principal; 2019-12-12)
DX: J69.0 Pneumonitis due to inhalation of food and vomit (principal); K85.90 Acute pancreatitis without necrosis or infection, unspecified; G93.41 Metabolic encephalopathy; F10.239 Alcohol dependence with withdrawal, unspecified; D61.818 Other pancytopenia; E51.2 Wernicke's encephalopathy; R41.0 Disorientation, unspecified; E87.6 Hypokalemia; D69.6 Thrombocytopenia, unspecified; L89.312 Pressure ulcer of right buttock, stage 2; K70.30 Alcoholic cirrhosis of liver without ascites; Z11.59 Encounter for screening for other viral diseases
CPT/HCPCS: 36415; 36569; 71045; 71046; 74176; 76700; 80048; 80053; 80061; 80307; 81001; 81161; 81220; 82140; 82150; 82550; 82553; 82607; 82728; 82746; 82948; 83540; 83690; 83735; 84100; 84466; 84484; 85025; 85045; 85610; 85730; 93005; 96361; 97139; 99251; 99285; J0692; J0696; J1650; J2060; J2405; J3370; J3411; J3475; J7030; J7050; J7799

== ENCOUNTER 2019-12-29 04:17 | Inpatient (IN) | payer OTHER ==
[~2019-12-29] VITALS: Ht 180.3 cm; Wt 73.0 kg
--- OUTSIDE RECORDS SUMMARY | 2019-12-29 04:43 | XMS REPORT | Continuity of Care Document ---
Author Author [facility] t Organization [facility] Address 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 Name Role Phone ERIN GARCÍA DO SUZANNE PCP REIS, SOUHEIL Attphys Unavailable SWEET, A LAIRD Attphys Unavailable SANDHIR, AMBICA Attphys Unavailable REIS, SOUHEIL Admphys Unavailable Payers Payer Name Policy Type Policy Number Effective Date Expiration Date [employer] [id number] 2019 00:00:00 [facility] Cdc Review Covid19 [id number] [facility] Problems Condition Name Condition Details Condition Category Status Onset Date Resolution Date Last Treatment Date Treating Clinician Comments Source Alcohol withdrawal syndrome Problem Active [facility] Pancreatitis Problem Active [facility] Vomiting Problem Active [facility] Tachycardia Problem Active [facility] High total bilirubin Problem Active [facility] Allergies, Adverse Reactions, Alerts This patient has no known allergies or adverse reactions. Social History Social Habit Start Date Stop Date Quantity Comments Source Sex Assigned At 1955 00:00:00 1955 00:00:00 Male [facility] Medications This patient has no known medications. Vital Signs Vital Name Observation Time Observation Value Comments Source Body Temperature 2019-12-20 11:58:00 97.8 [degF] [facility] Heart Rate 2019-12-20 11:58:00 100 /min [facility] Respiratory rate 2019-12-20 11:58:00 20 /min [facility] BP Systolic 2019-12-20 11:58:00 136 mm[Hg] [facility] BP Diastolic 2019-12-20 11:58:00 85 mm[Hg] [facility] Oxygen saturation by Pulse oximetry 2019-12-20 11:58:00 96 /min [facility] BMI (Body Mass Index) 2019-12-05 00:27:00 22.5 kg/m2 [facility] Weight 2019-12-05 00:00:00 161 [lb_av] [facility] Procedures Procedure Date / Time Performed Performing Clinician Mane kiera CT of abdomen and pelvis without contrast 2019-12-11 00:00:00 [facility] X-ray of chest, two views 2019-12-07 00:00:00 [facility] US abdomen complete 2019-12-05 00:00:00 [facility] Computed tomography of brain without radiopaque contrast 00:00:00 HEBER TOLENTINO [facility] CT of abdomen and pelvis without contrast 2019 00:00:00 [facility] Plan of Care Planned Activity Planned Date Details Comments Source Instructions Alcohol Withdrawal [facility] Encounters Start Date/Time End Date/Time Encounter Type Admission Type [facility] Care Department Encounter ID Source 2019-12-04 23:34:00 2019-12-20 15:25:00 Discharged Inpatient 1 TRISTAN REIS [facility] [id number] [facility] 2019-03-27 06:26:00 2019-03-27 12:02:00 Departed Emergency Room 1 EDILMA GUSTFASON [facility] [id number] [facility] 2019 13:39:00 2019 21:20:00 Departed Emergency Room 1 LENNOX STYLES [facility] [id number] [facility] Results Test Description Test Time Test Comments Results Result Comments Source CHEST SINGLE (PORTABLE) 2019-12-20 09:24:00 [facility] 1955 Sex: M [facility] [address] [place] [address] Patient Name: MUKESH HILLIARD MR #: [id number] : 1955 Age/Sex: 64/M Req #: [id number] [facility] Physician: TRISTAN REIS MD Ordered by: YUMI VYAS MD Report #: [id number] Location: MED/SURG Room/Bed: [facility] Procedure: [id number] DX/CHEST SINGLE (PORTABLE) Exam Date: 12/20/19 Exam Time: 0538 REPORT STATUS: Signed EXAMINATION: CHEST SINGLE (POR TABLE) INDICATION: Pneumonia COMPARISON: Multiple prior chest radiograph, most recently 12/19/2019 FINDINGS: LINES/TUBES:Right PICC line terminates at the superior cavoatrial junction. LUNGS:The lungs are well-inflated. Unchanged elevation of the right hemidiaphragm. Unchanged mild bibasilar opacities. PLEURA:No pleural effusion or pneumothorax. MEDIASTINUM:The cardiomediastinal silhouette appears unchanged in size and shape. BONES/SOFT TISSUES:No acute osseous injury. ABDOMEN:No free air under the diaphragm. IMPRESSION: Unchanged mild bibasilar opacities, more likely atelectasis than superimposed aspiration or pneumonia.. Signed by: Jill Carroll MD on 12/20/2019 9:27 AM Dictated By: JILL CARROLL MD 6 Transcribed By: DEANDRE on 12/20/19926 COPY TO: YUMI VYAS MD, ABIM Serum or plasma sodium measurement (moles/volume) 2019-12-20 06:10:00 Test Item Sodium Level (test code = 2951-2) 136 mmol/L 136-145 [facility] potassium measurement (moles/volume)2019-12-20 06:10:00* Test Item Value Reference Range Interpretation Comments Potassium Level (test code = 2823-3) 3.4 mmol/L 3.5-5.1 [facility] plasma chloride measurement (moles/volume)2019-12-20 06:10:00* Test Item Value Reference Range Interpretation Comments Chloride Level (test code = 2075-0) 99 mmol/L 98-107 [facility] or plasma carbon dioxide, total measurement (moles/volume)2019-12-20 06:10:00* Test Item Value Reference Range Interpretation Comments Carbon Dioxide Level (test code = 2028-9) 31 mmol/L 22-29 [facility] or plasma anion [id number] 06:10:00* Test Item Value Reference Range Interpretation Comments Anion Gap (test code = 61517-8) 9.4 mmol/L 8-16 [facility] plasma urea nitrogen measurement (mass/volume)2019-12-20 06:10:00* Test Item Value Reference Range Interpretation Comments Blood Urea Nitrogen (test code = 3094-0) < 5 mg/dL 7-26 [facility] plasma creatinine measurement (mass/volume)2019-12-20 06:10:00* Test Item Value Reference Range Interpretation Comments Creatinine (test code = 2160-0) 0.54 mg/dL 0.72-1.25 [facility] or plasma urea nitrogen/creatinine mass [id number] 06:10:00* Test Item Value Reference Range Interpretation Comments BUN/Creatinine Ratio (test code = 3097-3) 9 6-25 [facility] CenterEstimated glomerular filtration rate (GFR) ytabbldnjzszf5946-01-57 06:10:00* Test Item Value Reference Range Interpretation Comments Estimat Glomerular Filtration Rate (test code = 779657184) > 60 mL/ min >60 Ranges were taken from the National Kidney Disease Education Program and the [facility] literature.Reference ranges:60 or greater: Krtvbf38-79 ( for 3 consecutive months): Chronic kidney disease 15 or less: Kidney failureTexoma Medical CenterGlucose pzueknlcpqj6936-06-82 06:10:00* Test Item Value Reference Range Interpretation Comments Glucose Level (test code = MKX9416) 98 mg/dL 74-118 [facility] or plasma calcium measurement (mass/volume)2019-12-20 06:10:00* Test Item Value Reference Range Interpretation Comments Calcium Level (test code = 64683-1) 8.1 mg/dL 8.4-10.2 [facility] plasma magnesium measurement (mass/volume)2019-12-20 06:10:00* Test Item Value Reference Range Interpretation Comments Magnesium Level (test code = 75376-4) 1.6 mg/dL 1.3-2.1 [facility] CenterCHE[facility]INGLE (PORTABLE)2019-12-19 09:16:00[facility] 1955 Sex: M [facility] [address] [address] Patient Name: MUKESH HILLIARD JR MR #: [id number] : 1955 Age/Sex: 64/M Req #: [id number] Adm Physician: TRISTAN REIS MD Ordered by: YUMI VYAS MD Report #: [id number] Location: MED/SURG Room/Bed: [facility] Procedure: [id number] DX/CHEST SINGLE (POR TABLE) Exam Date: 12/19/19 Exam Time: 0510 REPORT STATUS: Signed EXAMINATION: CHEST SINGLE (PORTABLE) INDICATION: Evaluation for pneumonia versus atelecta sis. COMPARISON: Multiple prior chest radiograph including most recent on 12/13/2019. FINDINGS: TUBES and LINES: Right PICC is un changed. LUNGS: Chronic elevation of the right hemidiaphragm. Low lung volu mes and bronchovascular crowding and pulmonary vascular congestion. Hazy opaci fication of the right lung base and retrocardiac left lung. PLEURA: No p leural effusion or pneumothorax. HEART AND MEDIASTINUM: The cardiomediasti nal silhouette is unremarkable. There are atherosclerotic calcifications withi n the aorta. BONES AND SOFT TISSUES: No acute osseous lesion. Soft tissue s are unremarkable. UPPER ABDOMEN: No free air under the diaphragm. IMPRESSION: 1. Low lung volumes and bronchovascular crowding and pulm onary vascular congestion. 2. Hazy opacification the bilateral lung bases w hich may represent atelectasis or developing multifocal pneumonia in the prope r clinical context. Signed by: Yvan Velez MD on 12/19/2019 9:20 AM Dictated By: YVAN VELEZ MD 9 Transcribed By: DEANDRE on 12/19/19919 COPY TO: YUMI LIMA MD, [facility] Serum or plasma total bilirubin measurement (mass/volume)2019-12-19 05:07:00* Test Item Value Reference Range Interpretation Comments Total Bilirubin (test code = 1975-2) 3.2 mg/dL 0.2-1.2 [facility] CenterFluoroscopic procedure less than one hour tamnyuau9611-72-52 05:07:00* Test Item Value Reference Range Interpretation Comments Aspartate Amino Transf (AST/SGOT) (test code = Aspartate Amino Transf (AST/SGOT)) 50 [IU]/L 5-34 [facility] or plasma alanine aminotransferase measurement (enzymatic activity/volume)2019-12-19 05:07:00* Test Item Value Reference Range Interpretation Comments Alanine Aminotransferase (ALT/SGPT) (test code = 1742-6) 20 [IU]/L 0-55 [facility] or plasma protein measurement (mass/volume)2019-12-19 05:07:00* Test Item Value Reference Range Interpretation Comments Total Protein (test code = 2885-2) 4.7 g/dL 6.5-8.1 [facility] or plasma albumin measurement (mass/volume)2019-12-19 05:07:00* Test Item Value Reference Range Interpretation Comments Albumin (test code = 1751-7) 2.1 g/dL 3.5-5.0 [facility] CenterPlasma globulin measurement (mass/volume) 2019-12-19 05:07:00* Test Item Value Reference Range Interpretation Comments Globulin (test code = 80967-5) 2.6 g/dL 2.3-3.5 [facility] or plasma albumin/globulin mass qzggx3667-21-93 05:07:00* Test Item Value Reference Range Interpretation Comments Albumin/Globulin Ratio (test code = 1759-0) 0.8 0.8-2.0 [facility] or plasma alkaline phosphatase measurement (enzymatic activity/volume)2019-12-19 05:07:00* Test Item Value Reference Range Interpretation Comments Alkaline Phosphatase (test code = 6768-6) 157 [IU]/L 40-150 [facility] or plasma lipase measurement (enzymatic activity/volume)2019-12-18 16:19:00* Test Item Value Reference Range Interpretation Comments Lipase (test code = 3040-3) 74 U/L 8-78 [facility] CenterBlood leukocytes automated count (number/volume)2019-12-16 05:40:00* Test Item Value Reference Range Interpretation Comments White Blood Count (test code = 6690-2) 6.29 10*3/uL 4.8-10.8 [facility] CenterBlood erythrocytes automated count (number/volume)2019-12-16 05:40:00* Test Item Value Reference Range Interpretation Comments Red Blood Count (test code = 789-8) 2.69 10*6/mL 4.3-5.7 [facility] CenterBlood hemoglobin measurement (moles/volume)2019-12-16 05:40:00* Test Item Value Reference Range Interpretation Comments Hemoglobin (test code = 97498-2) 9.4 g/dL 14.0-18.0 [facility] CenterAutomated blood hematocrit (volume fraction)2019-12-16 05:40:00* Test Item Value Reference Range Interpretation Comments Hematocrit (test code = 4544-3) 27.3 % 38.2-49.6 [facility] CenterAutomated erythrocyte mean corpuscular rghxqs4280-12-29 05:40:00* Test Item Value Reference Range Interpretation Comments Mean Corpuscular Volume (test code = 787-2) 101.5 81-99 [facility] CenterAutomated erythrocyte mean corpuscular hemoglobin (mass per erythrocyte)2019-12-16 05:40:00* Test Item Value Reference Range Interpretation Comments Mean Corpuscular Hemoglobin (test code = 785-6) 34.9 pg 28-32 [facility] CenterAutomated erythrocyte mean corpuscular hemoglobin concentration measurement (mass/volume)2019-12-16 05:40:00* Test Item Value Reference Range Interpretation Comments Mean Corpuscular Hemoglobin Concent (test code = 786-4) 34.4 g/dL 31-35 [facility] CenterRDW GwkEi-Rly4328-82-29 05:40:00* Test Item Value Reference Range Interpretation Comments Red Cell Distribution Width (test code = 48376-8) 19.2 % 11.7 -14.4 [facility] CenterAutomated blood platelet count (count/volume)2019-12-16 05:40:00* Test Item Value Reference Range Interpretation Comments Platelet Count (test code = 777-3) 275 10*3/uL 140-360 [facility] CenterAutomated blood segmented neutrophil count as percentage of total wstzqxywtn1049-66-29 05:40:00* Test Item Value Reference Range Interpretation Comments Neutrophils (%) (Auto) (test code = 08300-0) 72.3 % 38.7-80.0 [facility] CenterAutomated blood lymphocyte count as percentage ot total hqhvymamqf7015-11-12 05:40:00* Test Item Value Reference Range Interpretation Comments Lymphocytes (%) (Auto) (test code = 736-9) 12.2 % 18.0-39.1 [facility] CenterAutomated blood monocyte count as percentage of total rpgtbhwaso6482-36-56 05:40:00* Test Item Value Reference Range Interpretation Comments Monocytes (%) (Auto) (test code = 5905-5) 11.9 % 4.4-11.3 [facility] CenterAutomated blood eosinophil count as percentage of total mirrewrslo8154-61-59 05:40:00* Test Item Value Reference Range Interpretation Comments Eosinophils (%) (Auto) (test code = 713-8) 2.2 % 0.0-6.0 [facility] CenterAutomated blood basophil count as percentage of total ltjumspkyz4518-51-31 05:40:00* Test Item Value Reference Range Interpretation Comments Basophils (%) (Auto) (test code = 706-2) 1.1 % 0.0-1.0 [facility] CenterFluoroscopic procedure less than one hour xfxwnufs2886-66-33 05:40:00* Test Item Value Reference Range Interpretation Comments IM GRANULOCYTES % (test code = IM GRANULOCYTES %) 0.3 % 0.0- 1.0 [facility] CenterAutomated blood neutrophil count 2019-12-16 05:40:00* Test Item Value Reference Range Interpretation Comments Neutrophils # (Auto) (test code = 751-8) 4.5 2.1-6.9 [facility] CenterBlood lymphocytes count (number/volume) 2019-12-16 05:40:00* Test Item Value Reference Range Interpretation Comments Lymphocytes # (Auto) (test code = 55816-7) 0.8 1.0-3.2 [facility] CenterBlood monocytes automated count (number/volume)2019-12-16 05:40:00* Test Item Value Reference Range Interpretation Comments Monocytes # (Auto) (test code = 742-7) 0.8 0.2-0.8 [facility] CenterAutomated blood eosinophil count 2019-12-16 05:40:00* Test Item Value Reference Range Interpretation Comments Eosinophils # (Auto) (test code = 711-2) 0.1 0.0-0.4 [facility] CenterAutomated blood basophil count (count/volume)2019-12-16 05:40:00* Test Item Value Reference Range Interpretation Comments Basophils # (Auto) (test code = 704-7) 0.1 0.0-0.1 [facility] CenterFluoroscopic procedure less than one hour mhtjwenk1048-42-60 05:40:00* Test Item Value Reference Range Interpretation Comments Absolute Immature Granulocyte (auto (cecile t code = Absolute Immature Granulocyte (auto) 0.02 10*3/uL 0-0.1 [facility] CenterCHEST SINGLE (PORTABLE)2019-12-13 08:20:00[facility] 1955 Sex: M [facility] [address] [address] Patient Name: MUKESH HILLIARD JR MR #: [id number] : 1955 Age/Sex: 64/M Req #: [id number] Adm Physician: TRISTAN REIS MD Ordered by: MARILUZ ALVAREZ MD Report #: [id number] Location: MED/SURG Room/Bed: [facility] Procedure: [id number] DX/CHEST SINGLE (JOSELYN BLE) Exam Date: 12/13/19 Exam Time: 0615 REPORT STATUS: Signed TECHNIQUE: Frontal vi ew of the chest. INDICATION: right sided pneumonia 20191213 Y COMPARISON: Prior day. DISCUSSION: Limited evaluation due to p ortable technique. Lines and hardware: Stable. Heart and mediastinum: Sta ble. Lungs and pleura: Interval improvement in the hazy right basilar medial opacity. Stable elevated right hemidiaphragm. Left lung is grossly clear. Neg ative for large effusion or pneumothorax. Soft tissues and bones: No acute abn ormality. IMPRESSION: Interval improvement in the hazy opacity at the med ial right lung base, likely related to atelectasis. No new infiltrate is noted . Stable right hemidiaphragm elevation. Signed by: Jamila Luna MD on 12/13/2019 8:21 AM Dictated By: JAMILA LUNA MD Electronically Si gned By: JAMILA LUNA MD on 12/13/19820 Transcribed By: DEANDRE on 12/13/19820 COPY TO: MARILUZ ALVAREZ MD Ammonia Yxg-xYrc5837-10-26 06:00:00* Test Item Value Reference Range Interpretation Comments Ammonia (test code = 17656-5) 70 ug/dL 31-123 [facility] or plasma amylase measurement (enzymatic activity/volume)2019-12-13 06:00:00* Test Item Value Reference Range Interpretation Comments Amylase Level (test code = 1798-8) 12 U/L 25-125 [facility] CenterCapillary blood glucose measurement by glucometer (mass/volume)2019-12-12 21:35:00* Test Item Value Reference Range Interpretation Comments Bedside Glucose (test code = 98334-3) 103 mg/dL 70-120 Meter ID: [id number] Medical CenterCHEST XRAY LINE [id number] 20:04:00 [facility] : 1955 Sex: [place] [address] [address] Patient Name: MUKESH HILLIARD MR #: [id number] : 1955 Age/Sex: 64/M Req #: [id number] Adm Physician: TRISTAN REIS MD Ordered by: TRISTAN REIS MD Report #: [id number] Location: MED/SURG Room/Bed: [facility] Procedure: [id number] DX/CHEST XRAY LINE PL ACEMENT Exam Date: 12/12/19 Exam Time: 1929 REPORT STATUS: Signed EXAMINATION: CHES T XRAY LINE PLACEMENT INDICATION: PICC LINE PLACEMENT 1929 COMPARISON: Chest x-ray 12/07/2019 FINDINGS: TUBES and LINES: New right upper extremity PICC tip terminates in the sup erior cavoatrial junction.. LUNGS: Normal lung volumes. Elevated right h emidiaphragm right basilar haziness. PLEURA: No pleural effusio n or pneumothorax. HEART AND MEDIASTINUM: The cardiomediastinal silhouette is unremarkable. BONES AND SOFT TISSUES: No acute osseous lesion. So ft tissues are unremarkable. UPPER ABDOMEN: No free air under the diaphra gm. IMPRESSION: New right upper extremity PICC, tip terminates in the superior cavoatrial junction. Elevated right hemidiaphragm, right basil ar haziness is likely atelectasis rather than pneumonia. Signed by: Bravo Diehl DO on 12/12/2019 8:11 PM Dictated By: DAWOOD DIEHL DO El ectronically Signed By: DAWOOD DIEHL DO on 12/12/192010 Transcribed By: PIPER PERSAUD on 12/12/192010 COPY TO: TRISTAN REIS MD Prothrombin time (PT) in platelet poor plasma by coagulation ucqxe9009-88-87 10:30:00* Test Item Value Reference Range Interpretation Comments Prothrombin Time (test code = 5902-2) 13.6 s 11.9-14.5 [facility] CenterINR in Platelet poor plasma by Coagulation dxzbk5878-93-47 10:30:00* Test Item Value Reference Range Interpretation Comments Prothromb Time International Ratio (test code = 6301-6) 0.99 Oral Anticoagulant Therapy INR Values:1. Low Intensity Therapy 1.5 - 2.02 . Moderate Intensity Therapy 2.0 - 3.03. High Intensity Therapy(1) 2.5 - 3. 54. High Intensity Therapy(2) 3.0 - 4.05. Panic Value INR > 5.0 [facility] CenterCT ABDOMEN/PELVIS [id number] 19:32:00 [facility] : 1955 Sex: [place] [address] [place] [address] Patient Name: MUKESH HILLIARD MR #: [id number] : 1955 Age/Sex: 64/M Req #: [id number] [facility] Physician: TRISTAN REIS MD Ordered by: MARILUZ ALVAREZ MD Report #: [id number] Location: MED/SURG Room/Bed: [facility] Procedure: [id number] CT/CT ABDOMEN/PELVIS W O Exam Date: 12/11/19 Exam Time: 1830 REPORT STATUS: Signed EXAM: CT Abdomen and Pel vis WITHOUT contrast INDICATION: Pancreatitis COMPARISON: Abdominal ultrasound 12/05/2019. TECHNIQUE: Abdomen and pelvis were scanned utilizing a multidetector helical scanner from the lung base to the pubic symphysis withou t administration of IV contrast. Absence of intravenous contrast decreases sen sitivity for detection of focal lesions and vascular pathology. Coronal and sa gittal reformations were obtained. Routine protocol was performed. IV CONTRAST: None ORAL CONTRAST: None COMPLICATIONS: None RADIATION DOSE: Total DLP: 328 mGy*cm Estimated effective dose : (DLP x 0.015 x size factor) mSv CTDIvol has been reviewed. It is below the limits set by the Radiation Protocol Committee (RPC). Dose modulati on, iterative reconstruction, and/or weight based adjustment of the mA/kV was utilized to reduce the radiation dose to as low as reasonably achievable. FINDINGS: LINES and TUBES: None. LOWER THORAX: Subsegmental right b asilar consolidative opacity with an volume loss. Triple vessel coronary arter y calcifications. HEPATOBILIARY: Hypodense enlarged liver. No focal hepati c lesions. No biliary ductal dilation. GALLBLADDER: Radiopaque gallbladd er contents.. No wall thickening. SPLEEN: No splenomegaly. PANCREAS: No focal masses or ductal dilatation. Trace peripancreatic fat stranding. ADRENALS: No adrenal nodules KIDNEYS/URETERS: No hydronephrosis. N o cystic or solid mass lesions. No stones. Subtle bilateral perinephric fat s tranding can be due to renal insufficiency or senescence. GI TRACT: Madison h wall thickening of the sigmoid flexure. Trace surrounding fat stranding. Ext ensive colonic diverticuli, worst in the distal descending and proximal sigmoi d colon. No evidence of bowel obstruction. Appendix is normal. PELV IC ORGANS/BLADDER: Unremarkable. LYMPH NODES: No lymphadenopathy. VESS ELS: Arterial calcifications. PERITONEUM / RETROPERITONEUM: No free air or fluid. BONES: Degenerative changes. SOFT TISSUES: Unremarkable . IMPRESSION: 1. Trace peripancreatic fat stranding coul d be indicative of pancreatitis. No fluid collections, duct dilation or mass. 2. Suspect acute comminuted sigmoid diverticulitis. Given wall thickening number recommend referral for colonoscopy. 3. Atelectasis with probable pneumonia component in the posterior basilar right lower lobe. 4. Gallbl adder contents compatible with sludge as seen on abdominal ultrasound 12/05/19 20. Hepatomegaly with hepatic steatosis. 5. Triple vessel coronary artery calcific atherosclerosis. Signed by: Dawood Diehl DO on 12/11/2019 7:39 PM Dictated By: DAWOOD DIEHL DO 38 Transcribed By: DEANDRE on 12/11/191938 COPY TO: MARILUZ ALVAREZ MD HIP RIGHT 2-3 VW (+/- PELVIS)2019-12-10 17:35:00 [facility] : 1955 Sex: M [place] [address] Patient Name: MUKESH HILLIARD MR #: [id number] : 1955 Age/Sex: 64/M Req #: [id number] [facility] Physician: TRISTAN REIS MD Ordered by: TRISTAN REIS MD Report #: [id number] Location: MED/SURG Room/Bed: [facility] Procedure: [id number] DX/HIP RIGHT 2-3 VW ( +/- PELVIS) Exam Date: Exam Time: REPORT STATUS: Signed X-ray : 1 view of the pelv is, 2 views of the right hip. HISTORY: Pain. COMPARISON: None availa ble. FINDINGS: Bones: No acute displaced fracture. Osseous ali gnment is within normal limits. Joints: The joint spaces are well-maintai nicole. There are mild degenerative changes of the bilateral hips. Mild to mod erate degenerative changes of the lower lumbar spine and sacroiliac joints. Soft tissues: The soft tissues appear unremarkable. The partially imaged ab domen demonstrates normal bowel gas pattern. IMPRESSION: 1. No acu te radiographic abnormality. 2. Mild degenerative changes of the bilateral hi ps. 3. Mild to moderate degenerative changes of the lower lumbar spine and sacroiliac joints. Signed by: Yvan Velez MD on 12/10/2019 5:39 PM Dictated By: YVAN VELEZ MD 38 Transcribed By: DEANDRE on 12/10/191738 COPY TO: TRISTAN REIS MD Serum or plasma triglyceride measurement (mass/volume) 2019-12-10 07:02:00* Test Item Value Reference Range Interpretation Comments Triglycerides Level (test code = 2571-8) 168 mg/dL 0-149 [facility] plasma cholesterol measurement (mass/volume)2019-12-10 07:02:00* Test Item Value Reference Range Interpretation Comments Cholesterol Level (test code = 2093-3) 175 mg/dL 0-199 Less than 200 mg/dL Low Apvp265 - 239 mg/dL Borderline Wjmz124 m g/dl and greater High Risk [facility] or plasma cholesterol in LDL measurement (mass/volume) 2019-12-10 07:02:00* Test Item Value Reference Range Interpretation Comments LDL Cholesterol (test code = 2089-1) 129 mg/dL 60-130 [facility] or plasma cholesterol in HDL measurement (mass/volume)2019-12-10 07:02:00* Test Item Value Reference Range Interpretation Comments HDL Cholesterol (test code = 2085-9) 12 mg/dL 40-60 [facility] or plasma total cholesterol/cholesterol in HDL mass dxlws5824-73-74 07:02:00* Test Item Value Reference Range Interpretation Comments Cholesterol/HDL Ratio (test code = 9830-1) 14.6 3.9-4.7 [facility] CenterBlood or tissue HFE gene mutation analysis by molecular genetics method ffrlkmbvf2959-27-32 00:40:00* Test Item Value Reference Range Interpretation Comments Hemochromatosis Results (test code = VDR1160) Comment . Result: CARRIERSingle mutation (H63D) identifiedInterpretation: This patient's s ample was analyzed for thehereditary hemochromatosis (HH) mutations C282Y, H63D, uadE35G. A single copy of H63D was identified. Results uotT307E and S65C were negative. 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 Approximately 1 in 9 Caucasians arecarriers of HH. The mutations analyzed by [facility] are mostcommo n in the population. Because this paneldoes not identify rare HH muta tions or HH mutations foundin other ethnic groups, there are a small number of p eoplewho may have a single copy of H63D who are actuallyaffected. The diagnosis of HH should include clinicalfindings and other test results, such as transferr in-ironsaturation and/or serum ferritin studies and/or liverbiopsy. HH is inher ited in a recessive manner. Shouldthis individual have children with a partner who is also acarrier for HH, there is a 25% chance per offspring thathe/she is a ffected. Genetic counseling and HH moleculartesting are recommended for at-risk family members.Methodology:DNA Analysis of the HFE gene was performed by PCRamp lification followed by restriction enzyme digestionanalyses.Reference:Jose Alejandro JS and Evens AP. (2000). Valerie Test 4:97-101.Rex HILL et al. (1999). AM J Prev Med 16:134-140.Raymon Ferrer (2002). Lancet 360(9677):1678-55.Vashti Lees al. (08 04). Blood Cells, Molecules. andDiseases. 293):418-432.Anna Rice al. (06 05). Valerie Med. 5(1):1-8.Rex HILL et al. (2003). Valerie Med. 5(4):304-10.This test was developed and its performance characteristicsdetermined by [facility]. It has not been cleared or approvedby the Food and Drug Administration.Genetic coun selors are available for health care providersto discuss results at [phone] [place].Ketty Sandoval, PhD, Aubrey Tao, PhD, Gayatri Galeas, PhD, Emilie Verde, PhD, Shania Jacobson, PhD, Claudette Mccallum, PhD, FACMGPerformed at: TG [facility] [id number] [facility], [place] [address]Lab Director: Orlando Sheridan [facility], Phone: [phone] Medical CenterPhosphorus tdiymjbiwct0271-73-87 08:55:00* Test Item Value Reference Range Interpretation Comments Phosphorus Level (test code = KSF5330) 0.8 mg/dL 2.3-4.7 [facility] 2 MAAXM2573-99-52 12:43:00 [facility] : 1955 Sex: [place] [address] Patient Name: MUKESH HILLIARD JR MR #: [id number] : 1955 Age/Sex: 64/M Req #: [id number] Adm Physician: TRISTAN REIS MD Ordered by: TRISTAN REIS MD Report #: [id number] Location: MED/SURG Room/Bed: 112 -1 Procedure: [id number] DX/CHEST 2 VIEWS Exa m Date: 12/07/19 Exam Time: 1115 REPORT STATUS: Signed TECHNIQUE: Frontal and lateral views of the chest. INDICATION: SOB [id number] COMPARISO N: 3 days prior IMPRESSION: Lines and hardware: Stable. Heart and medi astinum: Stable. Lungs and pleura: Elevated right hemidiaphragm. No focal airs pace consolidation. Minimal left basilar atelectasis. Small pleural effusions. No pneumothorax. Soft tissues and bones: No acute abnormality. Signed by: Erick Campos MD on 12/07/2019 12:45 PM Dictated By: Reena CAMPOS DO 44 Transcribed By: DEANDRE on 12/07/19 1245 COPY TO: TRISTAN REIS MD Automated reticulocyte count as percentage of total obcsdnqlpzqw1702-89-35 07:29:00* Test Item Value Reference Range Interpretation Comments Percent Reticulocyte Count (test code = 49624-8) 1.2 % 0.8-2 .2 [facility] or plasma iron measurement (mass/volume)2019-12-06 07:29:00* Test Item Value Reference Range Interpretation Comments Iron Level (test code = 2498-4) 100 ug/dL 65-175 [facility] or plasma iron binding capacity measurement (mass/volume)2019-12-06 07:29:00* Test Item Value Reference Range Interpretation Comments Total Iron Binding Capacity (test code = 2500-7) 155 ug/dL 261-4 78 [facility] or plasma iron saturation measurement (mass fraction)2019-12-06 07:29:00* Test Item Value Reference Range Interpretation Comments Percent Iron Saturation (test code = 2502-3) 65 % 15-50 [facility] or plasma transferrin measurement (mass/volume)2019-12-06 07:29:00* Test Item Value Reference Range Interpretation Comments Transferrin (test code = 3034-6) 111 mg/dL 174-364 [facility] or plasma ferritin measurement (mass/volume)2019-12-06 07:29:00* Test Item Value Reference Range Interpretation Comments Ferritin (test code = 2276-4) 4778.81 ng/mL 21.81-274.66 [facility] CenterBlood cobalamin (vitamin B12) measurement (mass/volume)2019-12-06 07:29:00* Test Item Value Reference Range Interpretation Comments Vitamin B12 Level (test code = 43913-0) 1194 pg/mL 213-816 [facility] or plasma hepatitis A virus IgM antibody detection by zyalpypenlm7576-81-63 07:29:00* Test Item Value Reference Range Interpretation Comments Hepatitis A IgM Antibody (test code = 26211-4) Negative Negativ e [facility] or plasma hepatitis B virus surface antigen detection by uwbzdszdnnt6479-86-87 07:29:00* Test Item Value Reference Range Interpretation Comments Hepatitis B Surface Antigen (test code = 5196-1) Negative Negat gricelda [facility] or plasma hepatitis B virus core IgM antibody detection by nzrjdveqmew4041-25-63 07:29:00* Test Item Value Reference Range Interpretation Comments Hepatitis B Core IgM Antibody (test code = 04911-4) Negative Ne gative [facility] hepatitis C virus antibody wwybuclyw1844-51-99 07:29:00* Test Item Value Reference Range Interpretation Comments Hepatitis C Antibody (test code = 51395-2) <0.1 0.0-0.9 Negative: < 0.8 Indeterminate: 0.8 - 0.9 Positive: > 0.9 The CDC recommends that a positive HCV antibody result be followed up with a HCV Nucleic Acid Amplification test (747513).[facility] or plasma folate measurement (mass/volume)2019-12-06 07:29:00* Test Item Value Reference Range Interpretation Comments Folate (test code = 2284-8) >20.0 ng/mL >3.0 A serum folate concentration of less than 3.1 ng/mL isconsidered to represent cl inical deficiency.Performed at: - [facility] [address] [id number] Director: Mello Yañez MD, Phone: [phone] [facility]US A[facility]OMEN OEMHTPPO2709-70-82 14:53:00 [facility] : 1955 Sex: M [place] [address] Patient Name: MUKESH HILLIARD JR MR #: [id number] : 1955 Age/Sex: 64/M Req #: [id number] Adm Physician: TRISTAN REIS MD Ordered by: MUMTAZ NAYLOR MD Report #: [id number] Location: ICU Room/Bed: ICU 05-18 Procedure: [id number] US/US ABDOMEN COMPLETE Exam Date: 12/05/19 Exam Time: 1304 REPORT STATUS: Signed EXAM: US ABDOMEN COMPLETE INDICATION: Elevated bilirubin. COMPARISON: CT abdomen/pelvis 03-11-19. TECHNIQUE: Transverse and longitudinal rivas scale and color doppler son ographic images of the abdomen was obtained. FINDINGS: Somewhat limit ed examination secondary to overlying bowel gas. LIVER 14.9 cm in the rig ht midclavicular line. Increased echogenicity of the liver with normal contour , no masses. SPLEEN 10.6 cm in maximum diameter. Normal echogenicity, n o masses. GALLBLADDER Possible gallbladder sludge. There is a 0.3 cm echo genic nondependent focus along the gallbladder fundus wall which is nonmobile and demonstrates comet tail artifact. No gallbladder wall thickening, distensi on, or pericholecystic fluid. Negative reported sonographic Rowell's sign. BILE DUCTS No intra nor extra-hepatic biliary dilation. Common bile duct m easures 0.4 cm PANCREAS: Limited evaluation. RIGHT KIDNEY: 10.8 cm Echogenicity: Normal Collecting System: No hydronephrosis Stones: None C yst/Mass: None LEFT KIDNEY: 10.0 cm Echogenicity: Normal Collecting Sys tem: No hydronephrosis Stones: None Cyst/Mass: None VESSELS: Aorta: Limited evaluation. Inferior Vena Cava: Visualized portions are normal Main Portal Vein: 1.2 cm, normal size with hepatopetal flow. 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 Gallbladder polyp or stone is considered less likely. Possible gallbladder sludge. No evidence of cholecystitis. Hepatic steatosis. Signed by: Dr. Laura Perez MD on 2:59 PM Dictated By: LAURA PEREZ MD [id number] Transcribed By: DEANDRE on 12/05/19 002 COPY TO: MUMTAZ NAYLOR MD Activated partial thromboplastin time (aPTT) in platelet poor plasma by coagulation ukeot3662-22-07 10:40:00* Test Item Value Reference Range Interpretation Comments Activated Partial Thromboplast Time (test code = 88179-0) 29.9 s 23.8-35.5 [facility] (PORTABLE)2019-12-04 22:30:00[facility] : 1955 Sex: M [place] [address] Patient Name: MUKESH HILLIARD JR MR #: [id number] : 1955 Age/Sex: 64/M Req #: [id number] [facility] Physician: Ordered by: HEBER TOLENTINO MD Report #: [id number] Location: ER Room/Bed: Procedure: [id number] DX/CHEST SINGLE (PORTABLE) Exam Date: 12/04/19 Exam Time: 2149 REPORT STATUS: Signed EXAMINATION: CHEST SINGLE (PORTABLE) INDICATION: weakness [id number] 21 50 Y COMPARISON: 03/27/2019 FINDINGS: AP view TUBES an d LINES: None. LUNGS: Lungs are well inflated. There is no evidence of p neumonia or pulmonary edema. PLEURA: No pleural effusion or pneumothorax . HEART AND MEDIASTINUM: The cardiomediastinal silhouette is unremarkable. BONES AND SOFT TISSUES: No acute osseous lesion. Again seen elevated right hemidiaphragm. UPPER ABDOMEN: No free air under the diaphragm. IMPRESSION: No acute thoracic abnormality. Signed by: Dr. Trell Villasenor MD on 12/04/2019 10:32 PM Dictated By: TRELL VILLASENOR MD Electr onically Signed By: TRELL VILLASENOR MD on 12/04/192231 Transcribed By: DEANDRE romero 12/04/192231 COPY TO: HEBER TOLENTINO MD Fluoroscopic procedure less than one hour nvggdwjk2678-15-63 22:24:00* Test Item Value Reference Range Interpretation Comments Coronavirus (PCR) (test code = Coronavirus (PCR)) NOT DETECTED NOTD ETECTED SARS-CoV-2 PCRHologic Aptima SARS-CoV-2 assay is a nucleic amplification test in tended for the qualitative detection of RNA from SARS-CoV-2 from nasopharyngeal (SENIOR COST ANALYST) specimens. It is used under Emergency Use Authorization (EUA) by FDA.A posi tive result is indicative of the presence of SARS-CoV-2 RNA. Clinical correlatio n with patient history and other diagnostic information is necessary to determin e patient infection status.A negative (Not Detected) result does not preclude SA RS-CoV-2 infection. Clinical Correlation with patient history and other diagnost ic information should be used in patient management decisions.Invalid: Unable to generate a valid result on this specimen. Please submit a new specimen for repr at testing oc clinically indicated.Tesing performed by:[facility] Laboratory Services[address] [place] [id number] [id number], Heber caldwell MD, PhDTexoma Medical CenterUrine color determination 2019-12-04 20:30:00* Test Item Value Reference Range Interpretation Comments Urine Color (test code = 5778-6) SHIRLEY YELLOW [facility] CenterUrine pjfgcax9248-24-88 20:30:00* Test Item Value Reference Range Interpretation Comments Urine Clarity (test code = 84550-5) HAZY CLEAR [facility] gravity of Urine by Test strip 2019-12-04 20:30:00* Test Item Value Reference Range Interpretation Comments Urine Specific [place] (test code = 5811-5) 1.025 1.010-1.02 5 [facility] CenterUrine pH measurement by automated test rnpzs5003-73-31 20:30:00* Test Item Value Reference Range Interpretation Comments Urine pH (test code = 27259-8) 5.5 5-7 [facility] CenterUrine leukocyte esterase detection by nwbzdikf8220-10-94 20:30:00* Test Item Value Reference Range Interpretation Comments Urine Leukocyte Esterase (test code = 5799-2) NEGATIVE NEGATIVE [facility] CenterUrine nitrite wwvndjqdt8955-41-42 20:30:00* Test Item Value Reference Range Interpretation Comments Urine Nitrite (test code = 43250-4) NEGATIVE NEGATIVE [facility] CenterUrine protein measurement by test strip (mass/volume)2019-12-04 20:30:00* Test Item Value Reference Range Interpretation Comments Urine Protein (test code = 5804-0) 2+ NEGATIVE [facility] CenterUrine glucose oorsrbmlo2542-69-18 20:30:00* Test Item Value Reference Range Interpretation Comments Urine Glucose (UA) (test code = 2349-9) NEGATIVE NEGATIVE [facility] CenterUrine ketones detection by automated test mxbdx9612-87-89 20:30:00* Test Item Value Reference Range Interpretation Comments Urine Ketones (test code = 34946-3) >=160 NEGATIVE [facility] CenterUrine opiates screening asro7810-29-06 20:30:00* Test Item Value Reference Range Interpretation Comments Urine Opiates Screen (test code = 91505-3) NEGATIVE NEGATIVE ALL TESTS PERFORMED MANUALLY ON [employer] TOX/SEE TESTTexoma Medical CenterBarbiturates screen, cdqol3253-78-16 20:30:00* Test Item Value Reference Range Interpretation Comments Urine Barbiturates Screen (test code = 327607157) NEGATIVE NEGA TIVE [facility] CenterUrine phencyclidine detection by screening ojpxmi3520-27-28 20:30:00* Test Item Value Reference Range Interpretation Comments Urine Phencyclidine Screen (test code = 08739-2) NEGATIVE NEGAT GRICELDA [facility] CenterUrine amphetamines detection by screen method > 1000 ng/mX0345-24-11 20:30:00* Test Item Value Reference Range Interpretation Comments Urine Amphetamines Screen (test code = 85447-2) NEGATIVE NEGATI VE [facility] CenterFluoroscopic procedure less than one hour tsbrwgym6282-63-35 20:30:00* Test Item Value Reference Range Interpretation Comments Urine Methamphetamines Screen (test code = Urine Metha mphetamines Screen) NEGATIVE NEGATIVE [facility] CenterUrine benzodiazepines detection by screening fdoelk7580-42-71 20:30:00* Test Item Value Reference Range Interpretation Comments Urine Benzodiazepines Screen (test code = 84086-0) NEGATIVE NEG ATIVE [facility] CenterUrine cocaine measurement (mass/volume) 2019-12-04 20:30:00* Test Item Value Reference Range Interpretation Comments Urine Cocaine Screen (test code = 3398-5) NEGATIVE NEGATIVE [facility] CenterUrine cannabinoids detection by screening wblcdf5762-60-01 20:30:00* Test Item Value Reference Range Interpretation Comments Urine Cannabinoids Screen (test code = 38338-2) NEGATIVE NEGATI VE THESE RESULTS ARE FOR MEDICAL TREATMENT ONLYTHIS REPORT CONTAINS UNCONFIR MED SCREENING RESULTS*POSITIVE RESULTS WILL BE CONFIRMED BY REFERENCE LAB UPON R EQUEST CUT-OFFDRUG CLASS CONCENTRATION ng/mLAmphetamines 1000Methamphetamines 1000Cocaine 300Opiate 300Phencyc lidine 25Cannabinoid 50Barbiturates 300Benzodiazepine 300Methadone 300[facility] CenterUrine urobilinogen measurement by test strip (mass/volume)2019-12-04 20:30:00* Test Item Value Reference Range Interpretation Comments Urine Urobilinogen (test code = 66070-7) 4 mg/dL 0.2-1 [facility] CenterUrine total bilirubin measurement (mass/volume)2019-12-04 20:30:00* Test Item Value Reference Range Interpretation Comments Urine Bilirubin (test code = 1978-6) MODERATE NEGATIVE [facility] CenterUrine erythrocytes qotdfrxzy4506-92-02 20:30:00* Test Item Value Reference Range Interpretation Comments Urine Blood (test code = 41948-4) LARGE NEGATIVE [facility] CenterAutomated urine sediment leukocyte count by microscopy (number/high power field)2019-12-04 20:30:00* Test Item Value Reference Range Interpretation Comments Urine WBC (test code = 5821-4) 0-5 /[HPF] 0-5 [facility] CenterErythrocytes detection in urine sediment by light nrwdbkqsls9799-74-00 20:30:00* Test Item Value Reference Range Interpretation Comments Urine RBC (test code = 65682-7) 11-20 /[HPF] 0-5 [facility] CenterBacteria detection in urine sediment by light foipoztgjn3157-28-83 20:30:00* Test Item Value Reference Range Interpretation Comments Urine Bacteria (test code = 59072-7) FEW /[HPF] NONE [facility] CenterEpithelial cells detection in urine sediment by light iqhzarpmed6959-23-28 20:30:00* Test Item Value Reference Range Interpretation Comments Urine Epithelial Cells (test code = 46490-9) FEW /[LPF] NONE [facility] CenterMucus detection in urine sediment by light qsclyhzswi9516-20-04 20:30:00* Test Item Value Reference Range Interpretation Comments Urine Mucus (test code = 8247-9) FEW RARE [facility] or plasma creatine kinase measurement (enzymatic activity/volume)2019-12-04 20:10:00* Test Item Value Reference Range Interpretation Comments Creatine Kinase (test code = 2157-6) 1463 [IU]/L 30-200 [facility] or plasma creatine kinase MB measurement (mass/volume)2019-12-04 20:10:00* Test Item Value Reference Range Interpretation Comments Creatine Kinase MB (test code = 04036-3) 5.90 ng/mL 0-5.0 [facility] CenterTroponin I measurement by highly sensitive enzyme fegoligtbtk3848-18-14 20:10:00* Test Item Value Reference Range Interpretation Comments Troponin I (test code = 91834-2) 0.011 ng/mL 0-0.300 [facility] CenterCT BRAIN SO2904-79-30 09:11:00 [facility] [address] [address] Patient Name: MUKESH HILLIARD JR MR #: [id number] : 1955 Age/Sex: 64/M Req #: [id number] Adm Physician: Ordered by: HEBER TOLENTINO MD Report #: [id number] Location: ER Room/Bed: Procedure : [id number] CT/CT BRAIN WO Exam Date: 03/27/19 Exam Time: 0900 REPORT STATUS: Signed History:Syncope Comparison studies:None Technique: Axial images were o btained from the skull base to the vertex. Coronal and sagittal images reconst ructed from the axial data. Intravenous contrast: None Dose modulation, iter ative reconstruction, and/or weight based adjustment of the mA/kV was utilized to reduce the radiation dose to as low as reasonably achievable. Finding s: Scalp/skull: No abnormalities. Extra-axial spaces: No masses. No fluid collections. Brain sulci: Mildly prominent. Ventricles: Mild c ompensatory dilatation. No hydrocephalus. Parenchyma: Few hypodensities in the supratentorial white matter are small vessel ischemic changes. No leobardo s, hemorrhage, acute or chronic cortical vascular insults. Sellar/suprasell ar region: No abnormalities. Craniocervical junction: Patent foramen magnum. No Chiari one malformation. Incidental findings: Atherosclerotic calcific ations in the carotid siphons . Mild mucosal thickening at the ethmoid air cells and left sphenoid sinus, nonspecific. 2 cm there is hypodensity in the left central posterior suboccipital neck, secondary to interval inclusion cyst. Impression: No acute abnormalities. Chronic findings: 1. Mild generalized volume loss. 2. Mild supratentorial white matter small vess el ischemic changes. Signed by: DR Mike Denton M.D. on 03/27/2019 9 :17 AM Dictated By: MIKE ELLIS MD 6 Transcribed By: DEANDRE on 03/27/19916 COPY TO: HEBER TOLENTINO MD CHEST SINGLE (PORTABLE)2019-03-27 08:56:00 [facility] [address] [place] [address] Patient Name: MUKESH HILLIARD JR MR #: [id number] : 1955 Age/Sex: 64/M Req #: [id number] Adm Physician: Ordered by: HEBER TOLENTINO MD Report #: [id number] Location: ER Room/Bed: Procedure : [id number] DX/CHEST SINGLE (PORTABLE) Exam Date: Time: REPORT STATUS: Signed Examination: Single AP view of the chest. COMPARISON: None. INDICATIO N: Syncope DISCUSSION: Lines/tubes: None. Lungs: The lungs are well inflated and clear. No pneumonia or pulmonary edema. Pleura: No pleural effusion or pneumothorax. Heart and mediastinum: The heart and the mediastinum are unremarkable. Bones and soft tissues: No acute bony abnor malities. IMPRESSION: 1. No acute cardiopulmonary abnormalities. Signed by: Dr. Suzanne Hernandez M.D. on 03/27/2019 8:57 AM Dictated By: SUZANNE HERNANDEZ MD 6 Transcribed By: DEANDRE on 03/27/19856 COPY TO: ZI TOLENTINO MD Ethyl Alcohol Dweia2164-59-43 08:54:00* Test Item Value Reference Range Interpretation Comments Ethyl Alcohol Level (test code = 5643-2) 289.6 0.0-10.0 [facility] Jnupw6068-86-05 08:53:00* Test Item Value Reference Range Interpretation Comments Sodium Level (test code = 2951-2) 139 136-145 [facility] CenterPotassium Zabfe0948-80-48 08:53:00* Test Item Value Reference Range Interpretation Comments Potassium Level (test code = 2823-3) 4.0 3.5-5.1 [facility] CenterChloride Uhorl3930-78-78 08:53:00* Test Item Value Reference Range Interpretation Comments Chloride Level (test code = 2075-0) 96 98-107 L [facility] CenterCarbon Dioxide Fwfjo7073-15-54 08:53:00* Test Item Value Reference Range Interpretation Comments Carbon Dioxide Level (test code = 2028-9) 25 22-29 [facility] CenterAnion Fkr0999-67-42 08:53:00* Test Item Value Reference Range Interpretation Comments Anion Gap (test code = 97649-9) 22.0 8-16 H [facility] CenterBlood Urea Lvwlgaur3734-50-93 08:53:00* Test Item Value Reference Range Interpretation Comments Blood Urea Nitrogen (test code = 3094-0) 8 7-26 [facility] CenterCreatinine2020-02-08 08:53:00* Test Item Value Reference Range Interpretation Comments Creatinine (test code = 2160-0) 0.99 0.72-1.25 [facility] CenterBUN/Creatinine Hhuxe7718-43-29 08:53:00* Test Item Value Reference Range Interpretation Comments BUN/Creatinine Ratio (test code = 3097-3) 8 6-25 [facility] CenterEstimat Glomerular Filtration Rate 2019-03-27 08:53:00* Test Item Value Reference Range Interpretation Comments Estimat Glomerular Filtration Rate (test code = 077048565) > 60 >60 Ranges were taken from the National Kidney Disease Education Program and the [facility] Kidney Foundation literature.Reference ranges:60 or greater: Cmzqvx53-94 ( for 3 consecutive months): Chronic kidney disease 15 or less: Kidney failureTexoma Medical CenterGlucose Fvgyk1886-18-21 08:53:00* Test Item Value Reference Range Interpretation Comments Glucose Level (test code = POW5340) 87 74-118 [facility] CenterCalcium Ufjhw5354-95-60 08:53:00* Test Item Value Reference Range Interpretation Comments Calcium Level (test code = 28519-5) 9.4 8.4-10.2 [facility] CenterTotal Xbcylonyn8919-68-56 08:53:00* Test Item Value Reference Range Interpretation Comments Total Bilirubin (test code = 1975-2) 0.3 0.2-1.2 [facility] CenterAspartate Amino Transf (AST/SGOT) 2019-03-27 08:53:00* Test Item Value Reference Range Interpretation Comments Aspartate Amino Transf (AST/SGOT) (test code = Aspartate Amino Transf (AST/SGOT)) 46 5-34 H [facility] CenterAlanine Aminotransferase (ALT/SGPT) 2019-03-27 08:53:00* Test Item Value Reference Range Interpretation Comments Alanine Aminotransferase (ALT/SGPT) (test code = 1742-6) 20 0-55 [facility] CenterTotal Uixlimg3912-19-45 08:53:00* Test Item Value Reference Range Interpretation Comments Total Protein (test code = 2885-2) 7.1 6.5-8.1 [facility] CenterAlbumin2020-02-08 08:53:00* Test Item Value Reference Range Interpretation Comments Albumin (test code = 1751-7) 3.7 3.5-5.0 [facility] CenterGlobulin2020-02-08 08:53:00* Test Item Value Reference Range Interpretation Comments Globulin (test code = 32877-1) 3.4 2.3-3.5 [facility] CenterAlbumin/Globulin Upunr3887-84-18 08:53:00 * Test Item Value Reference Range Interpretation Comments Albumin/Globulin Ratio (test code = 1759-0) 1.1 0.8-2.0 [facility] CenterAlkaline Kcdcfixszmv8923-40-74 08:53:00* Test Item Value Reference Range Interpretation Comments Alkaline Phosphatase (test code = 6768-6) 90 40-150 [facility] CenterUrine CIT5574-92-69 08:28:00* Test Item Value Reference Range Interpretation Comments Urine WBC (test code = 5821-4) 0-5 0-5 [facility] CenterUrine GZK6545-70-44 08:28:00* Test Item Value Reference Range Interpretation Comments Urine RBC (test code = 18183-5) 0-5 0-5 [facility] CenterUrine Rgvhqbai5166-56-01 08:28:00* Test Item Value Reference Range Interpretation Comments Urine Bacteria (test code = 68251-6) RARE NONE [facility] CenterUrine Epithelial Lkebf5823-60-28 08:28:00 * Test Item Value Reference Range Interpretation Comments Urine Epithelial Cells (test code = 29856-1) FEW NONE [facility] CenterWhite Blood Dpijx0317-10-49 08:25:00* Test Item Value Reference Range Interpretation Comments White Blood Count (test code = 6690-2) 4.15 4.8-10.8 L [facility] CenterRed Blood Pykki6945-29-93 08:25:00* Test Item Value Reference Range Interpretation Comments Red Blood Count (test code = 789-8) 3.01 4.3-5.7 L [facility] CenterHemoglobin2020-02-08 08:25:00* Test Item Value Reference Range Interpretation Comments Hemoglobin (test code = 44337-1) 10.5 14.0-18.0 L [facility] CenterHematocrit2020-02-08 08:25:00* Test Item Value Reference Range Interpretation Comments Hematocrit (test code = 4544-3) 31.3 38.2-49.6 L [facility] CenterMean Corpuscular Pfrrao3012-49-52 08:25:00* Test Item Value Reference Range Interpretation Comments Mean Corpuscular Volume (test code = 787-2) 104.0 81-99 H [facility] CenterMean Corpuscular Yndkxgvuld1443-66-17 08:25:00* Test Item Value Reference Range Interpretation Comments Mean Corpuscular Hemoglobin (test code = 785-6) 34.9 28-32 H [facility] CenterMean Corpuscular Hemoglobin Concent 2019-03-27 08:25:00* Test Item Value Reference Range Interpretation Comments Mean Corpuscular Hemoglobin Concent (test code = 786-4) 33.5 31-35 [facility] CenterRed Cell Distribution Tzgdr9003-11-93 08:25:00* Test Item Value Reference Range Interpretation Comments Red Cell Distribution Width (test code = 48891-0) 15.5 11.7 -14.4 H [facility] CenterPlatelet Uhjnv8634-65-40 08:25:00* Test Item Value Reference Range Interpretation Comments Platelet Count (test code = 777-3) 271 140-360 [facility] CenterNeutrophils (%) (Auto)2019-03-27 08:25:00 * Test Item Value Reference Range Interpretation Comments Neutrophils (%) (Auto) (test code = 52571-2) 44.3 38.7-80.0 [facility] CenterLymphocytes (%) (Auto)2019-03-27 08:25:00 * Test Item Value Reference Range Interpretation Comments Lymphocytes (%) (Auto) (test code = 736-9) 31.3 18.0-39.1 [facility] CenterMonocytes (%) (Auto)2019-03-27 08:25:00* Test Item Value Reference Range Interpretation Comments Monocytes (%) (Auto) (test code = 5905-5) 14.0 4.4-11.3 H [facility] CenterEosinophils (%) (Auto)2019-03-27 08:25:00 * Test Item Value Reference Range Interpretation Comments Eosinophils (%) (Auto) (test code = 713-8) 8.7 0.0-6.0 H [facility] CenterBasophils (%) (Auto)2019-03-27 08:25:00* Test Item Value Reference Range Interpretation Comments Basophils (%) (Auto) (test code = 706-2) 1.0 0.0-1.0 [facility] CenterIM GRANULOCYTES %2019-03-27 08:25:00* Test Item Value Reference Range Interpretation Comments IM GRANULOCYTES % (test code = IM GRANULOCYTES %) 0.7 0.0- 1.0 [facility] CenterNeutrophils # (Auto)2019-03-27 08:25:00* Test Item Value Reference Range Interpretation Comments Neutrophils # (Auto) (test code = 751-8) 1.8 2.1-6.9 L [facility] CenterLymphocytes # (Auto)2019-03-27 08:25:00* Test Item Value Reference Range Interpretation Comments Lymphocytes # (Auto) (test code = 74684-7) 1.3 1.0-3.2 [facility] CenterMonocytes # (Auto)2019-03-27 08:25:00* Test Item Value Reference Range Interpretation Comments Monocytes # (Auto) (test code = 742-7) 0.6 0.2-0.8 [facility] CenterEosinophils # (Auto)2019-03-27 08:25:00* Test Item Value Reference Range Interpretation Comments Eosinophils # (Auto) (test code = 711-2) 0.4 0.0-0.4 [facility] CenterBasophils # (Auto)2019-03-27 08:25:00* Test Item Value Reference Range Interpretation Comments Basophils # (Auto) (test code = 704-7) 0.0 0.0-0.1 [facility] CenterAbsolute Immature Granulocyte (auto 2019-03-27 08:25:00* Test Item Value Reference Range Interpretation Comments Absolute Immature Granulocyte (auto (cecile t code = Absolute Immature Granulocyte (auto) 0.03 0-0.1 [facility] CenterUrine Taucc3761-13-81 08:12:00* Test Item Value Reference Range Interpretation Comments Urine Color (test code = 5778-6) YELLOW YELLOW [facility] CenterUrine Tugqtpb6362-89-15 08:12:00* Test Item Value Reference Range Interpretation Comments Urine Clarity (test code = 37689-8) CLEAR CLEAR [facility] CenterUrine Specific Orgrxze8245-70-19 08:12:00 * Test Item Value Reference Range Interpretation Comments Urine Specific [place] (test code = 5811-5) 1.010 1.010-1.02 5 [facility] CenterUrine nG6610-15-02 08:12:00* Test Item Value Reference Range Interpretation Comments Urine pH (test code = 97858-8) 5.5 5-7 [facility] CenterUrine Leukocyte Adfjhdyj1247-84-95 08:12:00* Test Item Value Reference Range Interpretation Comments Urine Leukocyte Esterase (test code = 5799-2) NEGATIVE NEGATIVE [facility] CenterUrine Pzfrvku9392-34-92 08:12:00* Test Item Value Reference Range Interpretation Comments Urine Nitrite (test code = 51654-5) NEGATIVE NEGATIVE [facility] CenterUrine Newlxzu5190-28-78 08:12:00* Test Item Value Reference Range Interpretation Comments Urine Protein (test code = 5804-0) NEGATIVE NEGATIVE [facility] CenterUrine Glucose (UA)2019-03-27 08:12:00* Test Item Value Reference Range Interpretation Comments Urine Glucose (UA) (test code = 2349-9) NEGATIVE NEGATIVE [facility] CenterUrine Tohhxau5787-30-11 08:12:00* Test Item Value Reference Range Interpretation Comments Urine Ketones (test code = 44443-8) NEGATIVE NEGATIVE [facility] CenterUrine Opiates Upyxxc4525-49-08 08:12:00* Test Item Value Reference Range Interpretation Comments Urine Opiates Screen (test code = 07775-3) NEGATIVE NEGATIVE ALL TESTS PERFORMED MANUALLY ON [employer] TOX/SEE TESTTexoma Medical CenterUrine Barbiturates Hraejz8476-35-42 08:12:00* Test Item Value Reference Range Interpretation Comments Urine Barbiturates Screen (test code = 442253150) NEGATIVE NEGA TIVE [facility] CenterUrine Phencyclidine Padqpr2104-18-30 08:12:00* Test Item Value Reference Range Interpretation Comments Urine Phencyclidine Screen (test code = 55362-1) NEGATIVE NEGAT GRICELDA [facility] CenterUrine Amphetamines Qfntdc8715-61-26 08:12:00* Test Item Value Reference Range Interpretation Comments Urine Amphetamines Screen (test code = 56973-4) NEGATIVE NEGATI VE [facility] CenterUrine Methamphetamines Rhlchp6282-56-08 08:12:00* Test Item Value Reference Range Interpretation Comments Urine Methamphetamines Screen (test code = Urine Metha mphetamines Screen) NEGATIVE NEGATIVE [facility] CenterUrine Benzodiazepines Zwvvql3657-90-12 08:12:00* Test Item Value Reference Range Interpretation Comments Urine Benzodiazepines Screen (test code = 61929-4) NEGATIVE NEG ATIVE [facility] CenterUrine Cocaine Fnkzms1087-52-63 08:12:00* Test Item Value Reference Range Interpretation Comments Urine Cocaine Screen (test code = 3398-5) NEGATIVE NEGATIVE [facility] CenterUrine Cannabinoids Udiklg7881-48-43 08:12:00* Test Item Value Reference Range Interpretation Comments Urine Cannabinoids Screen (test code = 45628-4) NEGATIVE NEGATI VE THESE RESULTS ARE FOR MEDICAL TREATMENT ONLYTHIS REPORT CONTAINS UNCONFIR MED SCREENING RESULTS*POSITIVE RESULTS WILL BE CONFIRMED BY REFERENCE LAB UPON R EQUEST CUT-OFFDRUG CLASS CONCENTRATION ng/mLAmphetamines 1000Methamphetamines 1000Cocaine 300Opiate 300Phencyc lidine 25Cannabinoid 50Barbiturates 300Benzodiazepine 300Methadone 300[facility]one Zbaieu1833-23-27 08:12:00* Test Item Value Reference Range Interpretation Comments Urine Methadone Screen (test code = 98307-2) NEGATIVE NEGATIVE THESE RESULTS ARE FOR MEDICAL TREATMENT ONLYTHIS REPORT CONTAINS UNCONFIR MED SCREENING RESULTS*POSITIVE RESULTS WILL BE CONFIRMED BY REFERENCE LAB UPON R EQUEST CUT-OFFDRUG CLASS CONCENTRATION ng/mLAmphetamines 1000Methamphetamines 1000Cocaine Metabolite 300Opiate 300Phencyc lidine 25Cannabinoid 50Barbiturates 300Benzodiazepine 300Methadone 300[facility] Mekyfruzvkts4535-27-17 08:12:00* Test Item Value Reference Range Interpretation Comments Urine Urobilinogen (test code = 36771-2) 0.2 0.2-1 [facility] CenterUrine Abtlzfvyb7455-76-25 08:12:00* Test Item Value Reference Range Interpretation Comments Urine Bilirubin (test code = 1978-6) NEGATIVE NEGATIVE [facility] CenterUrine Emvwe2005-28-46 08:12:00* Test Item Value Reference Range Interpretation Comments Urine Blood (test code = 53063-0) TRACE NEGATIVE H [facility] or plasma ethanol measurement (mass/volume)2019-03-27 07:51:00* Test Item Value Reference Range Interpretation Comments Ethyl Alcohol Level (test code = 5643-2) 289.6 mg/dL 0.0-10.0 [facility] CenterUrine methadone pzobti0638-57-95 07:30:00 * Test Item Value Reference Range Interpretation Comments Urine Methadone Screen (test code = 41340-1) NEGATIVE NEGATIVE THESE RESULTS ARE FOR MEDICAL TREATMENT ONLYTHIS REPORT CONTAINS UNCONFIR MED SCREENING RESULTS*POSITIVE RESULTS WILL BE CONFIRMED BY REFERENCE LAB UPON R EQUEST CUT-OFFDRUG CLASS CONCENTRATION ng/mLAmphetamines 1000Methamphetamines 1000Cocaine Metabolite 300Opiate 300Phencyc lidine 25Cannabinoid 50Barbiturates 300Benzodiazepine 300Methadone 300[facility] HospitalBlood Djxjnpo4603-37-00 14:59:00* Test Item Value Reference Range Interpretation Comments Blood Culture (test code = 40475534) NO GROWTH AFTER 5 DAYS, FINAL REPORT [facility] Rixdr8933-34-69 19:29:00* Test Item Value Reference Range Interpretation Comments Urine Color (test code = 5778-6) YELLOW YELLOW [facility] CenterUrine Ygblpfx2828-65-75 19:29:00* Test Item Value Reference Range Interpretation Comments Urine Clarity (test code = 75710-9) CLEAR CLEAR [facility] CenterUrine Specific Nlttwbe7779-03-13 19:29:00 * Test Item Value Reference Range Interpretation Comments Urine Specific [place] (test code = 5811-5) 1.015 1.010-1.02 5 [facility] CenterUrine yZ6627-91-94 19:29:00* Test Item Value Reference Range Interpretation Comments Urine pH (test code = 49767-8) 5.5 5-7 [facility] CenterUrine Leukocyte Yxqxtzwx9371-18-61 19:29:00* Test Item Value Reference Range Interpretation Comments Urine Leukocyte Esterase (test code = 5799-2) NEGATIVE NEGATIVE [facility] CenterU[facility] Wtwtapx4729-97-55 19:29:00* Test Item Value Reference Range Interpretation Comments Urine Nitrite (test code = 26901-9) NEGATIVE NEGATIVE [facility] CenterU[facility] Rtngwvj9472-22-90 19:29:00* Test Item Value Reference Range Interpretation Comments Urine Protein (test code = 5804-0) TRACE NEGATIVE H [facility] CenterUrine Glucose (UA)2019 19:29:00* Test Item Value Reference Range Interpretation Comments Urine Glucose (UA) (test code = 2349-9) NEGATIVE NEGATIVE [facility] CenterUrine Rfhijwr0300-65-40 19:29:00* Test Item Value Reference Range Interpretation Comments Urine Ketones (test code = 96464-5) TRACE NEGATIVE H [facility] Opmflydqfcyc5799-21-69 19:29:00* Test Item Value Reference Range Interpretation Comments Urine Urobilinogen (test code = 60815-8) 0.2 0.2-1 [facility] CenterU[facility] Ivxscgqjc3826-45-66 19:29:00* Test Item Value Reference Range Interpretation Comments Urine Bilirubin (test code = 1978-6) NEGATIVE NEGATIVE [facility] CenterU[facility] Suykb0762-74-77 19:29:00* Test Item Value Reference Range Interpretation Comments Urine Blood (test code = 67983-7) NEGATIVE NEGATIVE [facility] CenterU[facility] XMN9467-96-48 19:29:00* Test Item Value Reference Range Interpretation Comments Urine WBC (test code = 5821-4) NONE 0-5 [facility] CenterU[facility] WPK1458-27-84 19:29:00* Test Item Value Reference Range Interpretation Comments Urine RBC (test code = 94019-1) NONE 0-5 [facility] CenterUrine Wavehocg0657-09-60 19:29:00* Test Item Value Reference Range Interpretation Comments Urine Bacteria (test code = 09058-6) NONE NONE [facility] CenterUrine Epithelial Ziunh7305-85-63 19:29:00 * Test Item Value Reference Range Interpretation Comments Urine Epithelial Cells (test code = 86825-8) RARE NONE [facility] CenterCT ABDOMEN/PELVIS SA7583-34-14 16:14:00 [facility] [address] [address] Patient Name: MUKESH HILLIARD MR #: [id number] : 6 Age/Sex: 64/M Req #: [id number] Adm Physician: Ordered by: LENNOX STYLES DO Report #: [id number] Location: ER Room/Bed: Procedure: [id number] C T/CT ABDOMEN/PELVIS WO Exam Date: 03/11/19 [...] 03/11/191648 C OPY TO: LENNOX STYLES DO Oauzff4882-61-70 15:59:00* Test Item Value Reference Range Interpretation Comments Lipase (test code = 3040-3) 148 8-78 H [facility] CenterLipase2020-01-23 15:59:00* Test Item Value Reference Range Interpretation Comments Lipase (test code = 3040-3) 148 8-78 H [facility] CenterCreatine Kinase QX3514-58-75 15:34:00* Test Item Value Reference Range Interpretation Comments Creatine Kinase MB (test code = 75656-3) 1.80 0-5.0 [facility] CenterTroponin E6130-87-28 15:34:00* Test Item Value Reference Range Interpretation Comments Troponin I (test code = SPB3004) 0.098 0-0.300 [facility] CenterCreatine Kinase EZ2414-76-17 15:34:00* Test Item Value Reference Range Interpretation Comments Creatine Kinase MB (test code = 70332-2) 1.80 0-5.0 [facility] CenterTroponin U5088-33-53 15:34:00* Test Item Value Reference Range Interpretation Comments Troponin I (test code = UMK1782) 0.098 0-0.300 [facility]wayodium Wnvba4330-71-64 15:29:00* Test Item Value Reference Range Interpretation Comments Sodium Level (test code = 2951-2) 132 136-145 L [facility] CenterPotassium Qxfee8764-04-09 15:29:00* Test Item Value Reference Range Interpretation Comments Potassium Level (test code = 2823-3) 3.8 3.5-5.1 [facility] CenterChloride Jhpqz3268-41-49 15:29:00* Test Item Value Reference Range Interpretation Comments Chloride Level (test code = 2075-0) 83 98-107 L [facility] CenterCarbon Dioxide Wayvo7532-48-58 15:29:00* Test Item Value Reference Range Interpretation Comments Carbon Dioxide Level (test code = 2028-9) 30 22-29 H [facility] CenterAnion Xag7308-29-83 15:29:00* Test Item Value Reference Range Interpretation Comments Anion Gap (test code = 69022-0) 22.8 8-16 H [facility] CenterBlood Urea Rrfskpbj4822-65-25 15:29:00* Test Item Value Reference Range Interpretation Comments Blood Urea Nitrogen (test code = 3094-0) 30 7-26 H [facility] CenterCreatinine2020-01-23 15:29:00* Test Item Value Reference Range Interpretation Comments Creatinine (test code = 2160-0) 1.98 0.72-1.25 H [facility] CenterBUN/Creatinine Quxyc5492-97-52 15:29:00* Test Item Value Reference Range Interpretation Comments BUN/Creatinine Ratio (test code = 3097-3) 15 6-25 [facility] CenterEstimat Glomerular Filtration Rate 2019 15:29:00* Test Item Value Reference Range Interpretation Comments Estimat Glomerular Filtration Rate (test code = 706819458) 34 >60 L Ranges were taken from the National Kidney Disease Education Program and the [facility] Kidney Foundation literature.Reference ranges:60 or greater: Xneidf29-04 ( for 3 consecutive months): Chronic kidney disease 15 or less: Kidney failureTexoma Medical CenterGlucose Eqabj9951-65-03 15:29:00* Test Item Value Reference Range Interpretation Comments Glucose Level (test code = HXU8651) 112 74-118 [facility] CenterCalcium Ncfno3216-77-12 15:29:00* Test Item Value Reference Range Interpretation Comments Calcium Level (test code = 05672-1) 9.7 8.4-10.2 [facility] CenterTotal Uyoadfehc2308-11-67 15:29:00* Test Item Value Reference Range Interpretation Comments Total Bilirubin (test code = 1975-2) 0.6 0.2-1.2 [facility] CenterAspartate Amino Transf (AST/SGOT) 2019 15:29:00* Test Item Value Reference Range Interpretation Comments Aspartate Amino Transf (AST/SGOT) (test code = Aspartate Amino Transf (AST/SGOT)) 37 5-34 H [facility] CenterAlanine Aminotransferase (ALT/SGPT) 2019 15:29:00* Test Item Value Reference Range Interpretation Comments Alanine Aminotransferase (ALT/SGPT) (test code = 1742-6) 24 0-55 [facility] CenterTotal Trxiybd2473-25-22 15:29:00* Test Item Value Reference Range Interpretation Comments Total Protein (test code = 2885-2) 6.9 6.5-8.1 [facility] CenterAlbumin2020-01-23 15:29:00* Test Item Value Reference Range Interpretation Comments Albumin (test code = 1751-7) 3.9 3.5-5.0 [facility] CenterGlobulin2020-01-23 15:29:00* Test Item Value Reference Range Interpretation Comments Globulin (test code = 17216-9) 3.0 2.3-3.5 [facility] CenterAlbumin/Globulin Riwdm7969-35-45 15:29:00 * Test Item Value Reference Range Interpretation Comments Albumin/Globulin Ratio (test code = 1759-0) 1.3 0.8-2.0 [facility] CenterAlkaline Ysdtylatujs5445-83-43 15:29:00* Test Item Value Reference Range Interpretation Comments Alkaline Phosphatase (test code = 6768-6) 76 40-150 [facility] CenterCreatine Bowkpy3081-73-21 15:29:00* Test Item Value Reference Range Interpretation Comments Creatine Kinase (test code = 2157-6) 58 30-200 [facility] CenterCreatine Tzmgvg6125-72-05 15:29:00* Test Item Value Reference Range Interpretation Comments Creatine Kinase (test code = 2157-6) 58 30-200 [facility] CenterLactic Acid Ceadt2446-89-05 15:23:00* Test Item Value Reference Range Interpretation Comments Lactic Acid Level (test code = Lactic Acid Level) 2.0 0.5- 2.0 [facility] CenterLactic Acid Phnyn8085-33-91 15:23:00* Test Item Value Reference Range Interpretation Comments Lactic Acid Level (test code = Lactic Acid Level) 2.0 0.5- 2.0 [facility] CenterWhite Blood Shuxy2250-56-78 15:06:00* Test Item Value Reference Range Interpretation Comments White Blood Count (test code = 6690-2) 8.20 4.8-10.8 [facility] CenterRed Blood Muijq4107-26-65 15:06:00* Test Item Value Reference Range Interpretation Comments Red Blood Count (test code = 789-8) 3.22 4.3-5.7 L [facility] CenterHemoglobin2020-01-23 15:06:00* Test Item Value Reference Range Interpretation Comments Hemoglobin (test code = 50279-5) 11.0 14.0-18.0 L [facility] CenterHematocrit2020-01-23 15:06:00* Test Item Value Reference Range Interpretation Comments Hematocrit (test code = 4544-3) 31.8 38.2-49.6 L [facility] CenterMean Corpuscular Hsheap4019-73-44 15:06:00* Test Item Value Reference Range Interpretation Comments Mean Corpuscular Volume (test code = 787-2) 98.8 81-99 [facility] CenterMean Corpuscular Icoxlmmqaa1481-59-86 15:06:00* Test Item Value Reference Range Interpretation Comments Mean Corpuscular Hemoglobin (test code = 785-6) 34.2 28-32 H [facility] CenterMean Corpuscular Hemoglobin Concent 2019 15:06:00* Test Item Value Reference Range Interpretation Comments Mean Corpuscular Hemoglobin Concent (test code = 786-4) 34.6 31-35 [facility] CenterRed Cell Distribution Rpuks3779-81-50 15:06:00* Test Item Value Reference Range Interpretation Comments Red Cell Distribution Width (test code = 21396-5) 12.7 11.7 -14.4 [facility] CenterPlatelet Pfdtf8879-85-06 15:06:00* Test Item Value Reference Range Interpretation Comments Platelet Count (test code = 777-3) 265 140-360 [facility] CenterNeutrophils (%) (Auto)2019 15:06:00 * Test Item Value Reference Range Interpretation Comments Neutrophils (%) (Auto) (test code = 98166-2) 72.2 38.7-80.0 [facility] CenterLymphocytes (%) (Auto)2019 15:06:00 * Test Item Value Reference Range Interpretation Comments Lymphocytes (%) (Auto) (test code = 736-9) 15.0 18.0-39.1 L [facility] CenterMonocytes (%) (Auto)2019 15:06:00* Test Item Value Reference Range Interpretation Comments Monocytes (%) (Auto) (test code = 5905-5) 8.5 4.4-11.3 [facility] CenterEosinophils (%) (Auto)2019 15:06:00 * Test Item Value Reference Range Interpretation Comments Eosinophils (%) (Auto) (test code = 713-8) 3.0 0.0-6.0 [facility] CenterBasophils (%) (Auto)2019 15:06:00* Test Item Value Reference Range Interpretation Comments Basophils (%) (Auto) (test code = 706-2) 0.7 0.0-1.0 [facility] CenterIM GRANULOCYTES %2019 15:06:00* Test Item Value Reference Range Interpretation Comments IM GRANULOCYTES % (test code = IM GRANULOCYTES %) 0.6 0.0- 1.0 [facility] CenterNeutrophils # (Auto)2019 15:06:00* Test Item Value Reference Range Interpretation Comments Neutrophils # (Auto) (test code = 751-8) 5.9 2.1-6.9 [facility] CenterLymphocytes # (Auto)2019 15:06:00* Test Item Value Reference Range Interpretation Comments Lymphocytes # (Auto) (test code = 54577-8) 1.2 1.0-3.2 [facility] CenterMonocytes # (Auto)2019 15:06:00* Test Item Value Reference Range Interpretation Comments Monocytes # (Auto) (test code = 742-7) 0.7 0.2-0.8 [facility] CenterEosinophils # (Auto)2019 15:06:00* Test Item Value Reference Range Interpretation Comments Eosinophils # (Auto) (test code = 711-2) 0.3 0.0-0.4 [facility] CenterBasophils # (Auto)2019 15:06:00* Test Item Value Reference Range Interpretation Comments Basophils # (Auto) (test code = 704-7) 0.1 0.0-0.1 [facility] CenterAbsolute Immature Granulocyte (auto 2019 15:06:00* Test Item Value Reference Range Interpretation Comments Absolute Immature Granulocyte (auto (cecile t code = Absolute Immature Granulocyte (auto) 0.05 0-0.1 [facility] CenterFluoroscopic procedure less than one hour arimlter7889-54-48 14:42:00* Test Item Value Reference Range Interpretation Comments Lactic Acid Level (test code = Lactic Acid Level) 2.0 mmol/L 0.5- 2.0 [facility] CenterBlood wlbbzcb6134-52-13 14:42:00* Test Item Value Reference Range Interpretation Comments Blood Culture (test code = 60512082) NO GROWTH AFTER 5 DAYS, FINAL REPORT [facility]
[2019-12-29 05:13] LABS: BASOPHILS # (AUTO) 0.1 (0.0-0.1); BASOPHILS % 0.5 % (0.0-1.0); EOSINOPHILS % 0.2 % (0.0-6.0); HEMATOCRIT 35.7 % (38.2-49.6); HEMOGLOBIN 11.6 g/dL (14.0-18.0); LYMPHOCYTES # (AUTO) 0.9 (1.0-3.2); LYMPHOCYTES % 6.1 % (18.0-39.1); MEAN CORPUSCULAR HGB CONC 32.5 g/dL (31-35); MEAN CORPUSCULAR VOLUME 104.7 fL (81-99); MONOCYTES # (AUTO) 1.2 (0.2-0.8); MONOCYTES % 8.2 % (4.4-11.3); NEUTROPHILS # (AUTO) 12.8 (2.1-6.9); NEUTROPHILS % 84.4 % (38.7-80.0); PLATELET COUNT 336 x10e3/uL (140-360); RED BLOOD COUNT 3.41 x10e6/uL (4.3-5.7)
[2019-12-29 05:42] LABS: ALANINE AMINOTRANSFERASE 13 IU/L (0-55); ALBUMIN 2.5 g/dL (3.5-5.0); ALBUMIN/GLOBULIN RATIO 0.7 (0.8-2.0); ALKALINE PHOSPHATASE 125 IU/L (40-150); ANION GAP 11.4 mmol/L (8-16); BLOOD UREA NITROGEN 7 mg/dL (7-26); BUN/CREATININE RATIO 11 (6-25); CALCIUM 8.7 mg/dL (8.4-10.2); CARBON DIOXIDE 30 mmol/L (22-29); CHLORIDE 97 mmol/L (98-107); CREATINE KINASE 53 IU/L (30-200); CREATININE, SERUM 0.61 mg/dL (0.72-1.25); EST GLOMERULAR FILTRATION RATE > 60 ML/MIN (60-); GLUCOSE 105 mg/dL (74-118); POTASSIUM 3.4 mmol/L (3.5-5.1); SODIUM 135 mmol/L (136-145)
[2019-12-29 05:43] LABS: LIPASE 20 U/L (8-78)
--- NOTE | 2019-12-29 06:17 | Emergency Department Note ---
History of Present Illnes History of Present Illness Chief Complaint: General Medicine Complaints History of Present Illness This is a 64 year old male . 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 Any updates have been documented here. Past Medical History Recent Fever: No Clinical Suspicion of Infectio: No New/Unexplained Change in Ment: No Past Medical History: Hypertension Other Medical History: EX-ALCOHOLIC Past Surgical History: None Social History Smoking Cessation: Former smoker Counseling Performed: No Alcohol Use: None Any Illegal Drug Use: No Physically hurt or threatened: No Other Last Tetanus: UNKNOWN Any Pre-Existing Lines (PICC,: No Physical Exam Related Data Allergies: Coded Allergies: No Known Allergies (Unverified , 03/11/19) Triage Vital Signs Vital Signs Date Time Temp Pulse Resp B/P (MAP) Pulse Ox O2 Delivery O2 Flow Rate FiO2 12/29/19 04:50 99.2 102 19 130/85 96 Room Air Physical Exam CONSTITUTIONAL HENT EYES NECK PULMONARY CARDIOVASCULAR GASTROINTESTINAL GENITOURINARY SKIN MUSCULOSKELETAL NEUROLOGICAL PSYCHOLOGICAL Results Laboratory Result Diagram: 12/29/19 0454 12/29/19 0454 Laboratory Laboratory Tests Test 12/29/19 04:54 White Blood Count 15.19 x10e3/uL (4.8-10.8) Red Blood Count 3.41 x10e6/uL (4.3-5.7) Hemoglobin 11.6 g/dL (14.0-18.0) Hematocrit 35.7 % (38.2-49.6) Mean Corpuscular Volume 104.7 fL (81-99) Mean Corpuscular Hemoglobin 34.0 pg (28-32) Mean Corpuscular Hemoglobin Concent 32.5 g/dL (31-35) Red Cell Distribution Width 14.0 % (11.7-14.4) Platelet Count 336 x10e3/uL (140-360) Neutrophils (%) (Auto) 84.4 % (38.7-80.0) Lymphocytes (%) (Auto) 6.1 % (18.0-39.1) Monocytes (%) (Auto) 8.2 % (4.4-11.3) Eosinophils (%) (Auto) 0.2 % (0.0-6.0) Basophils (%) (Auto) 0.5 % (0.0-1.0) Neutrophils # (Auto) 12.8 (2.1-6.9) Lymphocytes # (Auto) 0.9 (1.0-3.2) Monocytes # (Auto) 1.2 (0.2-0.8) Eosinophils # (Auto) 0.0 (0.0-0.4) Basophils # (Auto) 0.1 (0.0-0.1) Absolute Immature Granulocyte (auto 0.09 x10e3/uL (0-0.1) Sodium Level 135 mmol/L (136-145) Potassium Level 3.4 mmol/L (3.5-5.1) Chloride Level 97 mmol/L (98-107) Carbon Dioxide Level 30 mmol/L (22-29) Anion Gap 11.4 mmol/L (8-16) Blood Urea Nitrogen 7 mg/dL (7-26) Creatinine 0.61 mg/dL (0.72-1.25) Estimat Glomerular Filtration Rate > 60 ML/MIN (60-) BUN/Creatinine Ratio 11 (6-25) Glucose Level 105 mg/dL (74-118) Calcium Level 8.7 mg/dL (8.4-10.2) Total Bilirubin 2.6 mg/dL (0.2-1.2) Aspartate Amino Transf (AST/SGOT) 51 IU/L (5-34) Alanine Aminotransferase (ALT/SGPT) 13 IU/L (0-55) Alkaline Phosphatase 125 IU/L (40-150) Creatine Kinase 53 IU/L (30-200) Creatine Kinase MB 0.50 ng/mL (0-5.0) Troponin I 0.009 ng/mL (0-0.300) Total Protein 6.1 g/dL (6.5-8.1) Albumin 2.5 g/dL (3.5-5.0) Globulin 3.6 g/dL (2.3-3.5) Albumin/Globulin Ratio 0.7 (0.8-2.0) Lipase 20 U/L (8-78) Ethyl Alcohol Level < 10.0 mg/dL (0.0-10.0) Assessment & Plan Last Vital Signs Date Time Temp Pulse Resp B/P (MAP) Pulse Ox O2 Delivery O2 Flow Rate FiO2 12/29/19 04:50 99.2 102 19 130/85 96 Room Air LENNOX STYLES DO Dec 29, 2019 06:17
--- OUTSIDE RECORDS SUMMARY | 2019-12-29 06:20 | XMS REPORT | Continuity of Care Document ---
Author Author [facility] t Organization [facility] Address [address] [place] [address] Phone Unavailable Care Team Providers Care Parcel Post Delivery Name Role Phone ERIN GARCÍA DO SUZANNE PCP REIS, SOUHEIL Attphys Unavailable SWEET, A LAIRD Attphys Unavailable SANDHIR, AMBICA Attphys Unavailable REIS, SOUHEIL Admphys Unavailable Payers Payer Name Policy Type Policy Number Effective Date Expiration Date [employer]ial[employer] [id number] 2019 00:00:00 [facility] Cdc Review Covid19 [id number] [facility] Problems Condition Name Condition Details Condition Category Status Onset Date Resolution Date Last Treatment Date Treating Clinician Comments Source Alcohol withdrawal syndrome Problem Active [facility] Pancreatitis Problem Active [facility] Vomiting Problem Active [facility] Tachycardia Problem Active [facility] High total bilirubin Problem Active [facility] Allergies, Adverse Reactions, Alerts This patient has no known allergies or adverse reactions. Social History Social Habit Start Date Stop Date Quantity Comments Source Sex Assigned At 1955 00:00:00 1955 00:00:00 Male [facility] Medications This patient has no known medications. Vital Signs Vital Name Observation Time Observation Value Comments Source Body Temperature 2019-12-20 11:58:00 97.8 [degF] [facility] Heart Rate 2019-12-20 11:58:00 100 /min [facility] Respiratory rate 2019-12-20 11:58:00 20 /min [facility] BP Systolic 2019-12-20 11:58:00 136 mm[Hg] [facility] BP Diastolic 2019-12-20 11:58:00 85 mm[Hg] [facility] Oxygen saturation by Pulse oximetry 2019-12-20 11:58:00 96 /min [facility] BMI (Body Mass Index) 2019-12-05 00:27:00 22.5 kg/m2 [facility] Weight 2019-12-05 00:00:00 161 [lb_av] [facility] Procedures Procedure Date / Time Performed Performing Clinician Mane kiera CT of abdomen and pelvis without contrast 2019-12-11 00:00:00 [facility] X-ray of chest, two views 2019-12-07 00:00:00 I [facility] US abdomen complete 2019-12-05 00:00:00 [facility] Computed tomography of brain without radiopaque contrast 00:00:00 HEBER TOLENTINO [facility] CT of abdomen and pelvis without contrast 2019 00:00:00 [facility] Plan of Care Planned Activity Planned Date Details Comments Source Instructions Alcohol Withdrawal [facility] Encounters Start Date/Time End Date/Time Encounter Type Admission Type Attendi [facility] Care Department Encounter ID Source 2019-12-04 23:34:00 2019-12-20 15:25:00 Discharged Inpatient 1 TRISTAN REIS [facility] [id number] [facility] 2019-03-27 06:26:00 2019-03-27 12:02:00 Departed Emergency Room 1 EDILMA GUSTAFSON [facility] [id number] [facility] 2019 13:39:00 2019 21:20:00 Departed Emergency Room 1 LENNOX STYLES [facility] [id number] [facility] Results Test Description Test Time Test Comments Results Result Comments Source CHEST SINGLE (PORTABLE) 2019-12-20 09:24:00 [facility] : 1955 Sex: M [facility] [address] [place] [address] Patient Name: MUKESH HILLIARD MR #: [id number] : 1955 Age/Sex: 64/M Req #: [id number] [facility] Physician: TRISTAN REIS MD Ordered by: YUMI VYAS MD Report #: [id number] Location: MED/SURG Room/Bed: Pending sale to [facility] Procedure: [id number] DX/CHEST SINGLE (PORTABLE) Exam Date: 12/20/19 Exam [...] (test code = 2951-2) 136 mmol/L 136-145 [facility] potassium measurement (moles/volume)2019-12-20 06:10:00* Test Item Value Reference Range Interpretation Comments Potassium Level (test code = 2823-3) 3.4 mmol/L 3.5-5.1 [facility] or plasma chloride measurement (moles/volume)2019-12-20 06:10:00* Test Item Value Reference Range Interpretation Comments Chloride Level (test code = 2075-0) 99 mmol/L 98-107 [facility] or plasma carbon dioxide, total measurement (moles/volume)2019-12-20 06:10:00* Test Item Value Reference Range Interpretation Comments Carbon Dioxide Level (test code = 2028-9) 31 mmol/L 22-29 [facility] or plasma anion wjt3453-31-42 06:10:00* Test Item Value Reference Range Interpretation Comments Anion Gap (test code = 18666-1) 9.4 mmol/L 8-16 [facility] or plasma urea nitrogen measurement (mass/volume)2019-12-20 06:10:00* Test Item Value Reference Range Interpretation Comments Blood Urea Nitrogen (test code = 3094-0) < 5 mg/dL 7-26 [facility] plasma creatinine measurement (mass/volume)2019-12-20 06:10:00* Test Item Value Reference Range Interpretation Comments Creatinine (test code = 2160-0) 0.54 mg/dL 0.72-1.25 [facility] or plasma urea nitrogen/creatinine mass ipmlp7585-69-81 06:10:00* Test Item Value Reference Range Interpretation Comments BUN/Creatinine Ratio (test code = 3097-3) 9 6-25 [facility] CenterEstimated glomerular filtration rate (GFR) cttnxludhcthl6809-28-34 06:10:00* Test Item Value Reference Range Interpretation Comments Estimat Glomerular Filtration Rate (test code = 577071088) > 60 mL/ min >60 Ranges were taken from the National Kidney Disease Education Program and the [facility] literature.Reference ranges:60 or greater: Aqrywv11-64 ( for 3 consecutive months): Chronic kidney disease 15 or less: Kidney failureLongview Regional Medical CenterGlucose mvmmevvbnum4196-36-62 06:10:00* Test Item Value Reference Range Interpretation Comments Glucose Level (test code = JWU4754) 98 mg/dL 74-118 [facility] or plasma calcium measurement (mass/volume)2019-12-20 06:10:00* Test Item Value Reference Range Interpretation Comments Calcium Level (test code = 53944-6) 8.1 mg/dL 8.4-10.2 [facility] or plasma magnesium measurement (mass/volume)2019-12-20 06:10:00* Test Item Value Reference Range Interpretation Comments Magnesium Level (test code = 51539-5) 1.6 mg/dL 1.3-2.1 [facility] Center[facility] ([facility])2019-12-19 09:16:00[facility] : 1955 Sex: M [facility] [address] [address] Patient Name: MUKESH HILLIARD JR MR #: [id number] : 1955 Age/Sex: 64/M Req #: [id number] Adm Physician: TRISTAN REIS MD Ordered by: YUMI VYAS MD Report #: [id number] Location: MED/SURG Room/Bed: Pending sale to [facility] Procedure: [id number] DX/CHEST SINGLE (POR TABLE) Exam Date: 12/19/19 [...] on 12/19/19919 COPY TO: YUMI LIMA MD, [facility] Serum or plasma total bilirubin measurement (mass/volume)2019-12-19 05:07:00* Test Item Value Reference Range Interpretation Comments Total Bilirubin (test code = 1975-2) 3.2 mg/dL 0.2-1.2 [facility] CenterFluoroscopic procedure less than one hour mgcnrdgo5541-45-58 05:07:00* Test Item Value Reference Range Interpretation Comments Aspartate Amino Transf (AST/SGOT) (test code = Aspartate Amino Transf (AST/SGOT)) 50 [IU]/L 5-34 [facility] or plasma alanine aminotransferase measurement (enzymatic activity/volume)2019-12-19 05:07:00* Test Item Value Reference Range Interpretation Comments Alanine Aminotransferase (ALT/SGPT) (test code = 1742-6) 20 [IU]/L 0-55 [facility] or plasma protein measurement (mass/volume)2019-12-19 05:07:00* Test Item Value Reference Range Interpretation Comments Total Protein (test code = 2885-2) 4.7 g/dL 6.5-8.1 [facility] or plasma albumin measurement (mass/volume)2019-12-19 05:07:00* Test Item Value Reference Range Interpretation Comments Albumin (test code = 1751-7) 2.1 g/dL 3.5-5.0 [facility] CenterPlasma globulin measurement (mass/volume) 2019-12-19 05:07:00* Test Item Value Reference Range Interpretation Comments Globulin (test code = 03473-4) 2.6 g/dL 2.3-3.5 [facility] or plasma albumin/globulin mass yuyyf7345-57-34 05:07:00* Test Item Value Reference Range Interpretation Comments Albumin/Globulin Ratio (test code = 1759-0) 0.8 0.8-2.0 [facility] or plasma alkaline phosphatase measurement (enzymatic activity/volume)2019-12-19 05:07:00* Test Item Value Reference Range Interpretation Comments Alkaline Phosphatase (test code = 6768-6) 157 [IU]/L 40-150 [facility]er[facility] or plasma lipase measurement (enzymatic activity/volume)2019-12-18 16:19:00* Test Item Value Reference Range Interpretation Comments Lipase (test code = 3040-3) 74 U/L 8-78 [facility] CenterBlood leukocytes automated count (number/volume)2019-12-16 05:40:00* Test Item Value Reference Range Interpretation Comments White Blood Count (test code = 6690-2) 6.29 10*3/uL 4.8-10.8 [facility] CenterBlood erythrocytes automated count (number/volume)2019-12-16 05:40:00* Test Item Value Reference Range Interpretation Comments Red Blood Count (test code = 789-8) 2.69 10*6/mL 4.3-5.7 [facility] CenterBlood hemoglobin measurement (moles/volume)2019-12-16 05:40:00* Test Item Value Reference Range Interpretation Comments Hemoglobin (test code = 08447-3) 9.4 g/dL 14.0-18.0 [facility] CenterAutomated blood hematocrit (volume fraction)2019-12-16 05:40:00* Test Item Value Reference Range Interpretation Comments Hematocrit (test code = 4544-3) 27.3 % 38.2-49.6 [facility] CenterAutomated erythrocyte mean corpuscular dbioks9090-11-40 05:40:00* Test Item Value Reference Range Interpretation Comments Mean Corpuscular Volume (test code = 787-2) 101.5 81-99 [facility] CenterAutomated erythrocyte mean corpuscular hemoglobin (mass per erythrocyte)2019-12-16 05:40:00* Test Item Value Reference Range Interpretation Comments Mean Corpuscular Hemoglobin (test code = 785-6) 34.9 pg 28-32 [facility] CenterAutomated erythrocyte mean corpuscular hemoglobin concentration measurement (mass/volume)2019-12-16 05:40:00* Test Item Value Reference Range Interpretation Comments Mean Corpuscular Hemoglobin Concent (test code = 786-4) 34.4 g/dL 31-35 [facility] CenterRDW NbpJb-Amb8128-93-29 05:40:00* Test Item Value Reference Range Interpretation Comments Red Cell Distribution Width (test code = 29685-3) 19.2 % 11.7 -14.4 [facility] CenterAutomated blood platelet count (count/volume)2019-12-16 05:40:00* Test Item Value Reference Range Interpretation Comments Platelet Count (test code = 777-3) 275 10*3/uL 140-360 [facility] CenterAutomated blood segmented neutrophil count as percentage of total ibpxjzpsvc0886-84-11 05:40:00* Test Item Value Reference Range Interpretation Comments Neutrophils (%) (Auto) (test code = 56940-6) 72.3 % 38.7-80.0 [facility] CenterAutomated blood lymphocyte count as percentage ot total rwynkkcyyq2794-70-68 05:40:00* Test Item Value Reference Range Interpretation Comments Lymphocytes (%) (Auto) (test code = 736-9) 12.2 % 18.0-39.1 [facility] CenterAutomated blood monocyte count as percentage of total phhyizyybe0161-47-16 05:40:00* Test Item Value Reference Range Interpretation Comments Monocytes (%) (Auto) (test code = 5905-5) 11.9 % 4.4-11.3 [facility] CenterAutomated blood eosinophil count as percentage of total ahwsbtmvoa0035-39-63 05:40:00* Test Item Value Reference Range Interpretation Comments Eosinophils (%) (Auto) (test code = 713-8) 2.2 % 0.0-6.0 [facility] CenterAutomated blood basophil count as percentage of total innaxxxbyu6556-38-64 05:40:00* Test Item Value Reference Range Interpretation Comments Basophils (%) (Auto) (test code = 706-2) 1.1 % 0.0-1.0 [facility] CenterFluoroscopic procedure less than one hour yowrqikz7745-98-35 05:40:00* Test Item Value Reference Range Interpretation Comments IM GRANULOCYTES % (test code = IM GRANULOCYTES %) 0.3 % 0.0- 1.0 [facility] CenterAutomated blood neutrophil count 2019-12-16 05:40:00* Test Item Value Reference Range Interpretation Comments Neutrophils # (Auto) (test code = 751-8) 4.5 2.1-6.9 [facility] CenterBlood lymphocytes count (number/volume) 2019-12-16 05:40:00* Test Item Value Reference Range Interpretation Comments Lymphocytes # (Auto) (test code = 09674-5) 0.8 1.0-3.2 [facility] CenterBlood monocytes automated count (number/volume)2019-12-16 05:40:00* Test Item Value Reference Range Interpretation Comments Monocytes # (Auto) (test code = 742-7) 0.8 0.2-0.8 [facility] CenterAutomated blood eosinophil count 2019-12-16 05:40:00* Test Item Value Reference Range Interpretation Comments Eosinophils # (Auto) (test code = 711-2) 0.1 0.0-0.4 [facility] CenterAutomated blood basophil count (count/volume)2019-12-16 05:40:00* Test Item Value Reference Range Interpretation Comments Basophils # (Auto) (test code = 704-7) 0.1 0.0-0.1 [facility] CenterFluoroscopic procedure less than one hour cerpmjqx1811-57-26 05:40:00* Test Item Value Reference Range Interpretation Comments Absolute Immature Granulocyte (auto (cecile t code = Absolute Immature Granulocyte (auto) 0.02 10*3/uL 0-0.1 [facility] CenterCHEST SINGLE (PORTABLE)2019-12-13 08:20:00[facility] : 1955 Sex: M [facility] [address] [address] Patient Name: MUKESH HILLIARD JR MR #: [id number] : 1955 Age/Sex: 64/M Req #: [id number] Adm Physician: TRISTAN REIS MD Ordered by: MARILUZ ALVAREZ MD Report #: [id number] Location: MED/SURG Room/Bed: Pending sale to [facility] Procedure: [id number] DX/CHEST SINGLE (JOSELYN BLE) Exam Date: 12/13/19 [...] 12/13/19820 COPY TO: MARILUZ ALVAREZ MD Ammonia Muy-gOok8752-39-26 06:00:00* Test Item Value Reference Range Interpretation Comments Ammonia (test code = 67242-5) 70 ug/dL 31-123 [facility] Allianceer[facility] or plasma amylase measurement (enzymatic activity/volume)2019-12-13 06:00:00* Test Item Value Reference Range Interpretation Comments Amylase Level (test code = 1798-8) 12 U/L 25-125 [facility] CenterCapillary blood glucose measurement by glucometer (mass/volume)2019-12-12 21:35:00* Test Item Value Reference Range Interpretation Comments Bedside Glucose (test code = 83044-5) 103 mg/dL 70-120 Meter ID: [id number] Regional Medical CenterCHEST XRAY LINE DNTSAHPQG8055-75-85 20:04:00 [facility] : 1955 Sex: M [place] [address] Patient Name: MUKESH HILLIARD MR #: [id number] : 1955 Age/Sex: 64/M Req #: [id number] Adm Physician: TRISTAN REIS MD Ordered by: TRISTAN REIS MD Report #: [id number] Location: MED/SURG Room/Bed: [facility] Procedure: [id number] DX/CHEST XRAY LINE PL ACEMENT Exam Date: [...] (PT) in platelet poor plasma by coagulation jghys2208-62-45 10:30:00* Test Item Value Reference Range Interpretation Comments Prothrombin Time (test code = 5902-2) 13.6 s 11.9-14.5 [facility] CenterINR in Platelet poor plasma by Coagulation fxxcb9486-95-10 10:30:00* Test Item Value Reference Range Interpretation Comments Prothromb Time International Ratio (test code = 6301-6) 0.99 Oral Anticoagulant Therapy INR Values:1. Low Intensity Therapy 1.5 - 2.02 . Moderate Intensity Therapy 2.0 - 3.03. High Intensity Therapy(1) 2.5 - 3. 54. High Intensity Therapy(2) 3.0 - 4.05. Panic Value INR > 5.0 [facility] CenterCT ABDOMEN/PELVIS [id number] 19:32:00 [facility] : 1955 Sex: M [place] [address] Patient Name: MUKESH HILLIARD MR #: [id number] : 1955 Age/Sex: 64/M Req #: [id number] [facility] Physician: TRISTAN REIS MD Ordered by: MARILUZ ALVAREZ MD Report #: [id number] Location: MED/SURG Room/Bed: [facility] Procedure: [id number] CT/CT ABDOMEN/PELVIS W O Exam Date: 12/11/19 [...] to renal insufficiency or senescence. GI TRACT: [place] h wall thickening of the sigmoid flexure. [...] RIGHT 2-3 VW (+/- PELVIS)2019-12-10 17:35:00 [facility] : 1955 Sex: [place] [address] Patient Name: MUKESH HILLIARD MR #: [id number] : 1955 Age/Sex: 64/M Req #: [id number] [facility] Physician: TRISTAN REIS MD Ordered by: TRISTAN REIS MD Report #: [id number] Location: MED/SURG Room/Bed: [facility] Procedure: [id number] DX/HIP RIGHT 2-3 VW ( +/- PELVIS) [...] (test code = 2571-8) 168 mg/dL 0-149 [facility] or plasma cholesterol measurement (mass/volume)2019-12-10 07:02:00* Test Item Value Reference Range Interpretation Comments Cholesterol Level (test code = 2093-3) 175 mg/dL 0-199 Less than 200 mg/dL Low Fict315 - 239 mg/dL Borderline Fyar264 m g/dl and greater High Risk [facility] Allianceerum or plasma cholesterol in LDL measurement (mass/volume) 2019-12-10 07:02:00* Test Item Value Reference Range Interpretation Comments LDL Cholesterol (test code = 2089-1) 129 mg/dL 60-130 [facility]er[facility] or plasma cholesterol in HDL measurement (mass/volume)2019-12-10 07:02:00* Test Item Value Reference Range Interpretation Comments HDL Cholesterol (test code = 2085-9) 12 mg/dL 40-60 [facility] or plasma total cholesterol/cholesterol in HDL mass ivyao9144-84-76 07:02:00* Test Item Value Reference Range Interpretation Comments Cholesterol/HDL Ratio (test code = 9830-1) 14.6 3.9-4.7 [facility] CenterBlood or tissue HFE gene mutation analysis by molecular genetics method wjidprpba3553-98-38 00:40:00* Test Item Value Reference Range Interpretation Comments Hemochromatosis Results (test code = NXN7859) Comment . Result: CARRIERSingle mutation (H63D) identifiedInterpretation: This patient's s ample was analyzed for thehereditary hemochromatosis (HH) mutations C282Y, H63D, wxgH07B. A single copy of H63D was identified. Results moyP436P and S65C were negative. This person is [...] J Prev Med 16:134-140.Raymon Ferrer (2002). Lancet 360(1889):1672-61.Vashti Lees al. (08 04). Blood Cells, Molecules. andDiseases. 293):418-432.Anna Rice al. (06 05). Valerie Med. 5(1):1-8.Rex HILL et al. (2003). Valerie Med. 5(4):304-10.This test was developed and its performance characteristicsdetermined by [facility]. It has not been cleared or approvedby the Food and Drug Administration.Genetic coun selors are available for health care providersto discuss results at [phone] [place].Ketty Sandoval, PhD, Aubrey Tao, PhD, Gayatri Galeas, PhD, Emilie Verde, PhD, Shania Jacobson, PhD, Claudette Mccallum, PhD, FACMGPerformed at: [facility] [id number] [facility], [place] [address]Lab Director: Orlando Sheridan [facility], Phone: [phone] Regional Medical CenterPhosphorus yxrjfvhbxnc7868-84-59 08:55:00* Test Item Value Reference Range Interpretation Comments Phosphorus Level (test code = FWJ2253) 0.8 mg/dL 2.3-4.7 [facility] 2 WGVWO7157-69-83 12:43:00 [facility] : 1955 Sex: M [place] [address] Patient Name: MUKESH HILLIARD JR MR #: [id number] : 1955 Age/Sex: 64/M Req #: [id number] Adm Physician: TRISTAN REIS MD Ordered by: TRISTAN REIS MD Report #: [id number] Location: MED/SURG Room/Bed: 112 -1 Procedure: [id number] DX/CHEST 2 VIEWS Exa m Date: 12/07/19 [...] Automated reticulocyte count as percentage of total cwmocwdlkawm5883-27-70 07:29:00* Test Item Value Reference Range Interpretation Comments Percent Reticulocyte Count (test code = 88964-8) 1.2 % 0.8-2 .2 [facility]er[facility] or plasma iron measurement (mass/volume)2019-12-06 07:29:00* Test Item Value Reference Range Interpretation Comments Iron Level (test code = 2498-4) 100 ug/dL 65-175 [facility] Allianceerum or plasma iron binding capacity measurement (mass/volume)2019-12-06 07:29:00* Test Item Value Reference Range Interpretation Comments Total Iron Binding Capacity (test code = 2500-7) 155 ug/dL 261-4 78 [facility] Allianceerum or plasma iron saturation measurement (mass fraction)2019-12-06 07:29:00* Test Item Value Reference Range Interpretation Comments Percent Iron Saturation (test code = 2502-3) 65 % 15-50 [facility]er[facility] or plasma transferrin measurement (mass/volume)2019-12-06 07:29:00* Test Item Value Reference Range Interpretation Comments Transferrin (test code = 3034-6) 111 mg/dL 174-364 [facility] or plasma ferritin measurement (mass/volume)2019-12-06 07:29:00* Test Item Value Reference Range Interpretation Comments Ferritin (test code = 2276-4) 4778.81 ng/mL 21.81-274.66 [facility] CenterBlood cobalamin (vitamin B12) measurement (mass/volume)2019-12-06 07:29:00* Test Item Value Reference Range Interpretation Comments Vitamin B12 Level (test code = 75838-3) 1194 pg/mL 213-816 [facility]erum or plasma hepatitis A virus IgM antibody detection by lgotcxuvwls2806-63-09 07:29:00* Test Item Value Reference Range Interpretation Comments Hepatitis A IgM Antibody (test code = 29751-8) Negative Negativ e [facility]erum or plasma hepatitis B virus surface antigen detection by cvzliuaqtkm5406-67-19 07:29:00* Test Item Value Reference Range Interpretation Comments Hepatitis B Surface Antigen (test code = 5196-1) Negative Negat gricelda [facility] Allianceerum or plasma hepatitis B virus core IgM antibody detection by etifmjczvdq0888-79-76 07:29:00* Test Item Value Reference Range Interpretation Comments Hepatitis B Core IgM Antibody (test code = 56431-5) Negative Ne gative [facility] Allianceerum hepatitis C virus antibody hwthrdaxi3993-21-35 07:29:00* Test Item Value Reference Range Interpretation Comments Hepatitis C Antibody (test code = 84643-4) <0.1 0.0-0.9 Negative: < 0.8 Indeterminate: 0.8 - 0.9 Positive: > 0.9 The CDC recommends that a positive HCV antibody result be followed up with a HCV Nucleic Acid Amplification test (322637).[facility] Center[facility] or plasma folate measurement (mass/volume)2019-12-06 07:29:00* Test Item Value Reference Range Interpretation Comments Folate (test code = 2284-8) >20.0 ng/mL >3.0 A serum folate concentration of less than 3.1 ng/mL isconsidered to represent cl inical deficiency.Performed at: - [facility] [address] [id number] Director: Mello Yañez MD, Phone: [phone] [facility] CenterUS ABDOMEN EESJPYFS9826-58-20 14:53:00 [facility] : 1955 Sex: M [place] [address] Patient Name: MUKESH HILLIARD JR MR #: [id number] : 1955 Age/Sex: 64/M Req #: [id number] Adm Physician: TRISTAN REIS MD Ordered by: MUMTAZ NAYLOR MD Report #: [id number] Location: ICU Room/Bed: ICU 05-18 Procedure: [id number] US/US ABDOMEN COMPLETE Exam Date: 12/05/19 Exam [...] 2:59 PM Dictated By: LAURA PEREZ MD [id number] Transcribed By: DEANDRE on 12/05/19 508 COPY TO: MUMTAZ NAYLOR MD Activated partial thromboplastin time (aPTT) in platelet poor plasma by coagulation sixco9349-08-01 10:40:00* Test Item Value Reference Range Interpretation Comments Activated Partial Thromboplast Time (test code = 30761-4) 29.9 s 23.8-35.5 [facility] (PORTABLE)2019-12-04 22:30:00[facility] : 1955 Sex: M [place] [address] Patient Name: MUKESH HILLIARD JR MR #: [id number] : 1955 Age/Sex: 64/M Req #: [id number] [facility] Physician: Ordered by: HEBER TOLENTINO MD Report #: [id number] Location: ER Room/Bed: Procedure: [id number] DX/CHEST SINGLE (PORTABLE) Exam Date: 12/04/19 Exam Time: 2149 REPORT STATUS: Signed EXAMINATION: CHEST SINGLE (PORTABLE) INDICATION: weakness [id number] [age] Y COMPARISON: 03/27/2019 FINDINGS: AP [...] MD Fluoroscopic procedure less than one hour qcmccxza9354-54-79 22:24:00* Test Item Value Reference Range Interpretation Comments Coronavirus (PCR) (test code = Coronavirus (PCR)) NOT DETECTED NOTD ETECTED SARS-CoV-2 PCRHologic Aptima SARS-CoV-2 assay is a nucleic amplification test in tended for the qualitative detection of RNA from SARS-CoV-2 from nasopharyngeal (LEGAL RECEPTIONIST) specimens. It is used under Emergency Use [...] repr at testing oc clinically indicated.Tesing performed by:[facility] Laboratory Services[address] [place] [address] [id number], Heber caldwell MD, PhDLongview Regional Medical CenterUrine color determination 2019-12-04 20:30:00* Test Item Value Reference Range Interpretation Comments Urine Color (test code = 5778-6) SHIRLEY YELLOW [facility] CenterUrine unkvfkd3031-79-50 20:30:00* Test Item Value Reference Range Interpretation Comments Urine Clarity (test code = 43688-0) HAZY CLEAR [facility] Alliancepecific gravity of Urine by Test strip 2019-12-04 20:30:00* Test Item Value Reference Range Interpretation Comments Urine Specific [place] (test code = 5811-5) 1.025 1.010-1.02 5 [facility] CenterU[facility] pH measurement by automated test jzntg2273-16-13 20:30:00* Test Item Value Reference Range Interpretation Comments Urine pH (test code = 21258-9) 5.5 5-7 [facility] CenterUrine leukocyte esterase detection by kdmexreg8067-57-01 20:30:00* Test Item Value Reference Range Interpretation Comments Urine Leukocyte Esterase (test code = 5799-2) NEGATIVE NEGATIVE [facility] CenterUrine nitrite nxsktrdxm5924-66-97 20:30:00* Test Item Value Reference Range Interpretation Comments Urine Nitrite (test code = 53771-2) NEGATIVE NEGATIVE [facility] CenterUrine protein measurement by test strip (mass/volume)2019-12-04 20:30:00* Test Item Value Reference Range Interpretation Comments Urine Protein (test code = 5804-0) 2+ NEGATIVE [facility] CenterUrine glucose wwvfvxyzi4061-91-51 20:30:00* Test Item Value Reference Range Interpretation Comments Urine Glucose (UA) (test code = 2349-9) NEGATIVE NEGATIVE [facility] CenterUrine ketones detection by automated test drmej6199-15-45 20:30:00* Test Item Value Reference Range Interpretation Comments Urine Ketones (test code = 21888-6) >=160 NEGATIVE [facility] CenterUrine opiates screening asjg9574-82-51 20:30:00* Test Item Value Reference Range Interpretation Comments Urine Opiates Screen (test code = 05633-1) NEGATIVE NEGATIVE ALL TESTS PERFORMED MANUALLY ON [employer] TOX/SEE TESTLongview Regional Medical CenterBarbiturates screen, bepoy1175-12-56 20:30:00* Test Item Value Reference Range Interpretation Comments Urine Barbiturates Screen (test code = 170091301) NEGATIVE NEGA TIVE [facility] CenterUrine phencyclidine detection by screening cgxsms9801-00-04 20:30:00* Test Item Value Reference Range Interpretation Comments Urine Phencyclidine Screen (test code = 95894-7) NEGATIVE NEGAT GRICELDA [facility] CenterUrine amphetamines detection by screen method > 1000 ng/xN7008-42-69 20:30:00* Test Item Value Reference Range Interpretation Comments Urine Amphetamines Screen (test code = 24319-2) NEGATIVE NEGATI VE [facility] CenterFluoroscopic procedure less than one hour auattmra7113-16-51 20:30:00* Test Item Value Reference Range Interpretation Comments Urine Methamphetamines Screen (test code = Urine Metha mphetamines Screen) NEGATIVE NEGATIVE [facility] CenterUrine benzodiazepines detection by screening euwyde2849-14-04 20:30:00* Test Item Value Reference Range Interpretation Comments Urine Benzodiazepines Screen (test code = 59991-3) NEGATIVE NEG ATIVE [facility] CenterUrine cocaine measurement (mass/volume) 2019-12-04 20:30:00* Test Item Value Reference Range Interpretation Comments Urine Cocaine Screen (test code = 3398-5) NEGATIVE NEGATIVE [facility] CenterUrine cannabinoids detection by screening vwtnnt6027-28-47 20:30:00* Test Item Value Reference Range Interpretation Comments Urine Cannabinoids Screen (test code = 73851-2) NEGATIVE NEGATI VE THESE RESULTS ARE FOR MEDICAL TREATMENT ONLYTHIS REPORT CONTAINS UNCONFIR MED SCREENING RESULTS*POSITIVE RESULTS WILL BE CONFIRMED BY REFERENCE LAB UPON R EQUEST CUT-OFFDRUG CLASS CONCENTRATION ng/mLAmphetamines 1000Methamphetamines 1000Cocaine 300Opiate 300Phencyc lidine 25Cannabinoid 50Barbiturates 300Benzodiazepine 300Methadone 300[facility] CenterUrine urobilinogen measurement by test strip (mass/volume)2019-12-04 20:30:00* Test Item Value Reference Range Interpretation Comments Urine Urobilinogen (test code = 05418-8) 4 mg/dL 0.2-1 [facility] CenterUrine total bilirubin measurement (mass/volume)2019-12-04 20:30:00* Test Item Value Reference Range Interpretation Comments Urine Bilirubin (test code = 1978-6) MODERATE NEGATIVE [facility] CenterUrine erythrocytes gdtzugoqx6825-00-84 20:30:00* Test Item Value Reference Range Interpretation Comments Urine Blood (test code = 45726-0) LARGE NEGATIVE [facility] CenterAutomated urine sediment leukocyte count by microscopy (number/high power field)2019-12-04 20:30:00* Test Item Value Reference Range Interpretation Comments Urine WBC (test code = 5821-4) 0-5 /[HPF] 0-5 [facility] CenterErythrocytes detection in urine sediment by light hczhzovhmi1097-62-28 20:30:00* Test Item Value Reference Range Interpretation Comments Urine RBC (test code = 23020-5) 11-20 /[HPF] 0-5 [facility] CenterBacteria detection in urine sediment by light tqtigdlete5505-46-49 20:30:00* Test Item Value Reference Range Interpretation Comments Urine Bacteria (test code = 64045-1) FEW /[HPF] NONE [facility] CenterEpithelial cells detection in urine sediment by light tmxucyvwsb5893-08-44 20:30:00* Test Item Value Reference Range Interpretation Comments Urine Epithelial Cells (test code = 22062-2) FEW /[LPF] NONE [facility] CenterMucus detection in urine sediment by light mqhdnxukyk3010-87-12 20:30:00* Test Item Value Reference Range Interpretation Comments Urine Mucus (test code = 8247-9) FEW RARE [facility] Allianceerum or plasma creatine kinase measurement (enzymatic activity/volume)2019-12-04 20:10:00* Test Item Value Reference Range Interpretation Comments Creatine Kinase (test code = 2157-6) 1463 [IU]/L 30-200 [facility] Allianceerum or plasma creatine kinase MB measurement (mass/volume)2019-12-04 20:10:00* Test Item Value Reference Range Interpretation Comments Creatine Kinase MB (test code = 88603-6) 5.90 ng/mL 0-5.0 [facility] CenterTroponin I measurement by highly sensitive enzyme lehvilzbrds6115-84-11 20:10:00* Test Item Value Reference Range Interpretation Comments Troponin I (test code = 47903-1) 0.011 ng/mL 0-0.300 [facility] CenterCT BRAIN WW1774-63-77 09:11:00 [facility] [address] [place] [address] Patient Name: MUKESH HILLIARD JR MR #: [id number] : 1955 Age/Sex: 64/M Req #: [id number] Adm Physician: Ordered by: HEBER TOLENTINO MD Report #: [id number] Location: ER Room/Bed: Procedure : [id number] CT/CT BRAIN WO Exam Date: 03/27/19 Exam [...] HEBER TOLENTINO MD CHEST SINGLE (PORTABLE)2019-03-27 08:56:00 [facility] [address] [place] [address] Patient Name: MUKESH HILLIARD JR MR #: [id number] : 1955 Age/Sex: 64/M Req #: [id number] Adm Physician: Ordered by: HEBER TOLENTINO MD Report #: [id number] Location: ER Room/Bed: Procedure : [id number] DX/CHEST SINGLE (PORTABLE) Exam Date: Time: REPORT [...] COPY TO: ZI TOLENTINO MD Ethyl Alcohol Btfed5451-43-93 08:54:00* Test Item Value Reference Range Interpretation Comments Ethyl Alcohol Level (test code = 5643-2) 289.6 0.0-10.0 H [facility]odium Riizc2433-38-14 08:53:00* Test Item Value Reference Range Interpretation Comments Sodium Level (test code = 2951-2) 139 136-145 [facility] CenterPotassium Wqunk4209-54-40 08:53:00* Test Item Value Reference Range Interpretation Comments Potassium Level (test code = 2823-3) 4.0 3.5-5.1 [facility] CenterChloride Bvahu4265-04-51 08:53:00* Test Item Value Reference Range Interpretation Comments Chloride Level (test code = 2075-0) 96 98-107 L [facility] CenterCarbon Dioxide Mbelk6517-03-53 08:53:00* Test Item Value Reference Range Interpretation Comments Carbon Dioxide Level (test code = 2028-9) 25 22-29 [facility] CenterAnion Lsx7905-56-91 08:53:00* Test Item Value Reference Range Interpretation Comments Anion Gap (test code = 49818-9) 22.0 8-16 H [facility] CenterBlood Urea Osfhzyps3048-17-11 08:53:00* Test Item Value Reference Range Interpretation Comments Blood Urea Nitrogen (test code = 3094-0) 8 7-26 [facility] CenterCreatinine2020-02-08 08:53:00* Test Item Value Reference Range Interpretation Comments Creatinine (test code = 2160-0) 0.99 0.72-1.25 [facility] CenterBUN/Creatinine Vmhww5248-90-48 08:53:00* Test Item Value Reference Range Interpretation Comments BUN/Creatinine Ratio (test code = 3097-3) 8 6-25 [facility] CenterEstimat Glomerular Filtration Rate 2019-03-27 08:53:00* Test Item Value Reference Range Interpretation Comments Estimat Glomerular Filtration Rate (test code = 103686800) > 60 >60 Ranges were taken from the National Kidney Disease Education Program and the [facility] literature.Reference ranges:60 or greater: Cgcfhd48-51 ( for 3 consecutive months): Chronic kidney disease 15 or less: Kidney failureLongview Regional Medical CenterGlucose Vejez5684-43-11 08:53:00* Test Item Value Reference Range Interpretation Comments Glucose Level (test code = KWY9165) 87 74-118 [facility] CenterCalcium Wsjqp8728-54-88 08:53:00* Test Item Value Reference Range Interpretation Comments Calcium Level (test code = 17018-4) 9.4 8.4-10.2 [facility] CenterTotal Lbxvcxkbc4124-59-56 08:53:00* Test Item Value Reference Range Interpretation Comments Total Bilirubin (test code = 1975-2) 0.3 0.2-1.2 [facility] CenterAspartate Amino Transf (AST/SGOT) 2019-03-27 08:53:00* Test Item Value Reference Range Interpretation Comments Aspartate Amino Transf (AST/SGOT) (test code = Aspartate Amino Transf (AST/SGOT)) 46 5-34 H [facility] CenterAlanine Aminotransferase (ALT/SGPT) 2019-03-27 08:53:00* Test Item Value Reference Range Interpretation Comments Alanine Aminotransferase (ALT/SGPT) (test code = 1742-6) 20 0-55 [facility] CenterTotal Llbzrns8463-19-85 08:53:00* Test Item Value Reference Range Interpretation Comments Total Protein (test code = 2885-2) 7.1 6.5-8.1 [facility] CenterAlbumin2020-02-08 08:53:00* Test Item Value Reference Range Interpretation Comments Albumin (test code = 1751-7) 3.7 3.5-5.0 [facility] CenterGlobulin2020-02-08 08:53:00* Test Item Value Reference Range Interpretation Comments Globulin (test code = 78339-2) 3.4 2.3-3.5 [facility] CenterAlbumin/Globulin Qyhhg9282-19-02 08:53:00 * Test Item Value Reference Range Interpretation Comments Albumin/Globulin Ratio (test code = 1759-0) 1.1 0.8-2.0 [facility] CenterAlkaline Cyocxbcpjnz4571-39-36 08:53:00* Test Item Value Reference Range Interpretation Comments Alkaline Phosphatase (test code = 6768-6) 90 40-150 [facility] CenterUrine HKV6813-28-45 08:28:00* Test Item Value Reference Range Interpretation Comments Urine WBC (test code = 5821-4) 0-5 0-5 [facility] CenterUrine LBH2401-65-74 08:28:00* Test Item Value Reference Range Interpretation Comments Urine RBC (test code = 64177-6) 0-5 0-5 [facility] CenterUrine Kjzkplzx2518-65-71 08:28:00* Test Item Value Reference Range Interpretation Comments Urine Bacteria (test code = 32802-3) RARE NONE [facility] CenterUrine Epithelial Wqyku8975-88-72 08:28:00 * Test Item Value Reference Range Interpretation Comments Urine Epithelial Cells (test code = 52378-0) FEW NONE [facility] CenterWhite Blood Belxs2771-85-12 08:25:00* Test Item Value Reference Range Interpretation Comments White Blood Count (test code = 6690-2) 4.15 4.8-10.8 L [facility] CenterRed Blood Zviak1709-20-33 08:25:00* Test Item Value Reference Range Interpretation Comments Red Blood Count (test code = 789-8) 3.01 4.3-5.7 L [facility] CenterHemoglobin2020-02-08 08:25:00* Test Item Value Reference Range Interpretation Comments Hemoglobin (test code = 96080-9) 10.5 14.0-18.0 L [facility] CenterHematocrit2020-02-08 08:25:00* Test Item Value Reference Range Interpretation Comments Hematocrit (test code = 4544-3) 31.3 38.2-49.6 L [facility] CenterMean Corpuscular Cydtym4209-90-60 08:25:00* Test Item Value Reference Range Interpretation Comments Mean Corpuscular Volume (test code = 787-2) 104.0 81-99 H [facility] CenterMean Corpuscular Ptfpjhvjka5108-74-84 08:25:00* Test Item Value Reference Range Interpretation Comments Mean Corpuscular Hemoglobin (test code = 785-6) 34.9 28-32 H [facility] CenterMean Corpuscular Hemoglobin Concent 2019-03-27 08:25:00* Test Item Value Reference Range Interpretation Comments Mean Corpuscular Hemoglobin Concent (test code = 786-4) 33.5 31-35 [facility] CenterRed Cell Distribution Jjpjn1855-41-19 08:25:00* Test Item Value Reference Range Interpretation Comments Red Cell Distribution Width (test code = 51673-9) 15.5 11.7 -14.4 H [facility] CenterPlatelet Gfssu3470-42-35 08:25:00* Test Item Value Reference Range Interpretation Comments Platelet Count (test code = 777-3) 271 140-360 [facility] CenterNeutrophils (%) (Auto)2019-03-27 08:25:00 * Test Item Value Reference Range Interpretation Comments Neutrophils (%) (Auto) (test code = 71219-0) 44.3 38.7-80.0 [facility] CenterLymphocytes (%) (Auto)2019-03-27 08:25:00 * Test Item Value Reference Range Interpretation Comments Lymphocytes (%) (Auto) (test code = 736-9) 31.3 18.0-39.1 [facility] CenterMonocytes (%) (Auto)2019-03-27 08:25:00* Test Item Value Reference Range Interpretation Comments Monocytes (%) (Auto) (test code = 5905-5) 14.0 4.4-11.3 H [facility] CenterEosinophils (%) (Auto)2019-03-27 08:25:00 * Test Item Value Reference Range Interpretation Comments Eosinophils (%) (Auto) (test code = 713-8) 8.7 0.0-6.0 H [facility] CenterBasophils (%) (Auto)2019-03-27 08:25:00* Test Item Value Reference Range Interpretation Comments Basophils (%) (Auto) (test code = 706-2) 1.0 0.0-1.0 [facility] CenterIM GRANULOCYTES %2019-03-27 08:25:00* Test Item Value Reference Range Interpretation Comments IM GRANULOCYTES % (test code = IM GRANULOCYTES %) 0.7 0.0- 1.0 [facility] CenterNeutrophils # (Auto)2019-03-27 08:25:00* Test Item Value Reference Range Interpretation Comments Neutrophils # (Auto) (test code = 751-8) 1.8 2.1-6.9 L [facility] CenterLymphocytes # (Auto)2019-03-27 08:25:00* Test Item Value Reference Range Interpretation Comments Lymphocytes # (Auto) (test code = 87917-8) 1.3 1.0-3.2 [facility] CenterMonocytes # (Auto)2019-03-27 08:25:00* Test Item Value Reference Range Interpretation Comments Monocytes # (Auto) (test code = 742-7) 0.6 0.2-0.8 [facility] CenterEosinophils # (Auto)2019-03-27 08:25:00* Test Item Value Reference Range Interpretation Comments Eosinophils # (Auto) (test code = 711-2) 0.4 0.0-0.4 [facility] CenterBasophils # (Auto)2019-03-27 08:25:00* Test Item Value Reference Range Interpretation Comments Basophils # (Auto) (test code = 704-7) 0.0 0.0-0.1 [facility] CenterAbsolute Immature Granulocyte (auto 2019-03-27 08:25:00* Test Item Value Reference Range Interpretation Comments Absolute Immature Granulocyte (auto (cecile t code = Absolute Immature Granulocyte (auto) 0.03 0-0.1 [facility] CenterUrine Qmqwr0640-68-24 08:12:00* Test Item Value Reference Range Interpretation Comments Urine Color (test code = 5778-6) YELLOW YELLOW [facility] CenterUrine Smiyyse0783-39-72 08:12:00* Test Item Value Reference Range Interpretation Comments Urine Clarity (test code = 21015-1) CLEAR CLEAR [facility] CenterUrine Specific Qgenigd5611-30-46 08:12:00 * Test Item Value Reference Range Interpretation Comments Urine Specific [place] (test code = 5811-5) 1.010 1.010-1.02 5 [facility] CenterUrine gH3460-78-46 08:12:00* Test Item Value Reference Range Interpretation Comments Urine pH (test code = 57146-9) 5.5 5-7 [facility] CenterUrine Leukocyte Ziwckpin9870-52-63 08:12:00* Test Item Value Reference Range Interpretation Comments Urine Leukocyte Esterase (test code = 5799-2) NEGATIVE NEGATIVE [facility] CenterUrine Wcuqygh0984-92-43 08:12:00* Test Item Value Reference Range Interpretation Comments Urine Nitrite (test code = 37740-6) NEGATIVE NEGATIVE [facility] CenterUrine Ijjecir1669-93-81 08:12:00* Test Item Value Reference Range Interpretation Comments Urine Protein (test code = 5804-0) NEGATIVE NEGATIVE [facility] CenterUrine Glucose (UA)2019-03-27 08:12:00* Test Item Value Reference Range Interpretation Comments Urine Glucose (UA) (test code = 2349-9) NEGATIVE NEGATIVE [facility] CenterUrine Qygdngj8005-48-19 08:12:00* Test Item Value Reference Range Interpretation Comments Urine Ketones (test code = 50475-3) NEGATIVE NEGATIVE [facility] CenterUrine Opiates Ysfdtg9819-48-49 08:12:00* Test Item Value Reference Range Interpretation Comments Urine Opiates Screen (test code = 00463-1) NEGATIVE NEGATIVE ALL TESTS PERFORMED MANUALLY ON [employer] TOX/SEE TESTLongview Regional Medical CenterUrine Barbiturates Xhlabi8852-76-23 08:12:00* Test Item Value Reference Range Interpretation Comments Urine Barbiturates Screen (test code = 896597678) NEGATIVE NEGA TIVE [facility] CenterUrine Phencyclidine Tjaegf8059-26-37 08:12:00* Test Item Value Reference Range Interpretation Comments Urine Phencyclidine Screen (test code = 29433-3) NEGATIVE NEGAT GRICELDA [facility] CenterUrine Amphetamines Kjmqpr2342-27-30 08:12:00* Test Item Value Reference Range Interpretation Comments Urine Amphetamines Screen (test code = 22551-5) NEGATIVE NEGATI VE [facility] CenterUrine Methamphetamines Kclgtq9137-37-05 08:12:00* Test Item Value Reference Range Interpretation Comments Urine Methamphetamines Screen (test code = Urine Metha mphetamines Screen) NEGATIVE NEGATIVE [facility] CenterUrine Benzodiazepines Nqdmsj2558-94-88 08:12:00* Test Item Value Reference Range Interpretation Comments Urine Benzodiazepines Screen (test code = 64908-4) NEGATIVE NEG ATIVE [facility] CenterUrine Cocaine Ccwhuq2456-69-79 08:12:00* Test Item Value Reference Range Interpretation Comments Urine Cocaine Screen (test code = 3398-5) NEGATIVE NEGATIVE [facility] CenterUrine Cannabinoids Ejyqev9566-23-94 08:12:00* Test Item Value Reference Range Interpretation Comments Urine Cannabinoids Screen (test code = 49816-2) NEGATIVE NEGATI VE THESE RESULTS ARE FOR MEDICAL TREATMENT ONLYTHIS REPORT CONTAINS UNCONFIR MED SCREENING RESULTS*POSITIVE RESULTS WILL BE CONFIRMED BY REFERENCE LAB UPON R EQUEST CUT-OFFDRUG CLASS CONCENTRATION ng/mLAmphetamines 1000Methamphetamines 1000Cocaine 300Opiate 300Phencyc lidine 25Cannabinoid 50Barbiturates 300Benzodiazepine 300Methadone 300[facility] CenterU[facility] Methadone Afhaka5744-84-98 08:12:00* Test Item Value Reference Range Interpretation Comments Urine Methadone Screen (test code = 76429-5) NEGATIVE NEGATIVE THESE RESULTS ARE FOR MEDICAL TREATMENT ONLYTHIS REPORT CONTAINS UNCONFIR MED SCREENING RESULTS*POSITIVE RESULTS WILL BE CONFIRMED BY REFERENCE LAB UPON R EQUEST CUT-OFFDRUG CLASS CONCENTRATION ng/mLAmphetamines 1000Methamphetamines 1000Cocaine Metabolite 300Opiate 300Phencyc lidine 25Cannabinoid 50Barbiturates 300Benzodiazepine 300Methadone 300[facility] CenterUrine Bvluiruqnmgy5341-90-46 08:12:00* Test Item Value Reference Range Interpretation Comments Urine Urobilinogen (test code = 37411-0) 0.2 0.2-1 [facility] CenterUrine Kxobjnlhr7199-96-79 08:12:00* Test Item Value Reference Range Interpretation Comments Urine Bilirubin (test code = 1978-6) NEGATIVE NEGATIVE [facility] CenterUrine Cjowe0896-54-67 08:12:00* Test Item Value Reference Range Interpretation Comments Urine Blood (test code = 79244-8) TRACE NEGATIVE H [facility] Allianceerum or plasma ethanol measurement (mass/volume)2019-03-27 07:51:00* Test Item Value Reference Range Interpretation Comments Ethyl Alcohol Level (test code = 5643-2) 289.6 mg/dL 0.0-10.0 [facility] CenterUrine methadone zclcaj9301-14-40 07:30:00 * Test Item Value Reference Range Interpretation Comments Urine Methadone Screen (test code = 45769-0) NEGATIVE NEGATIVE THESE RESULTS ARE FOR MEDICAL TREATMENT ONLYTHIS REPORT CONTAINS UNCONFIR MED SCREENING RESULTS*POSITIVE RESULTS WILL BE CONFIRMED BY REFERENCE LAB UPON R EQUEST CUT-OFFDRUG CLASS CONCENTRATION ng/mLAmphetamines 1000Methamphetamines 1000Cocaine Metabolite 300Opiate 300Phencyc lidine 25Cannabinoid 50Barbiturates 300Benzodiazepine 300Methadone 300[facility] CenterBlood Zkojhad1496-62-40 14:59:00* Test Item Value Reference Range Interpretation Comments Blood Culture (test code = 20896526) NO GROWTH AFTER 5 DAYS, FINAL REPORT [facility] CenterUrine Axbuy9130-34-58 19:29:00* Test Item Value Reference Range Interpretation Comments Urine Color (test code = 5778-6) YELLOW YELLOW [facility] CenterUrine Odnkyli3060-59-99 19:29:00* Test Item Value Reference Range Interpretation Comments Urine Clarity (test code = 29708-4) CLEAR CLEAR [facility] CenterUrine Specific Lopwsfx4862-95-05 19:29:00 * Test Item Value Reference Range Interpretation Comments Urine Specific [place] (test code = 5811-5) 1.015 1.010-1.02 5 [facility] CenterUrine cP0329-25-04 19:29:00* Test Item Value Reference Range Interpretation Comments Urine pH (test code = 86531-6) 5.5 5-7 [facility] CenterUrine Leukocyte Zfteriba8855-95-28 19:29:00* Test Item Value Reference Range Interpretation Comments Urine Leukocyte Esterase (test code = 5799-2) NEGATIVE NEGATIVE [facility] CenterUrine Cpcbxcb5292-64-12 19:29:00* Test Item Value Reference Range Interpretation Comments Urine Nitrite (test code = 52809-3) NEGATIVE NEGATIVE [facility] CenterUrine Yeixvdz1798-32-27 19:29:00* Test Item Value Reference Range Interpretation Comments Urine Protein (test code = 5804-0) TRACE NEGATIVE [facility] ([facility])2019 19:29:00* Test Item Value Reference Range Interpretation Comments Urine Glucose (UA) (test code = 2349-9) NEGATIVE NEGATIVE [facility] [id number] 19:29:00* Test Item Value Reference Range Interpretation Comments Urine Ketones (test code = 46014-2) TRACE NEGATIVE H [facility] Hdxdxxnngphq4884-83-65 19:29:00* Test Item Value Reference Range Interpretation Comments Urine Urobilinogen (test code = 11866-4) 0.2 0.2-1 [facility] Ymbzhhxdy2590-68-82 19:29:00* Test Item Value Reference Range Interpretation Comments Urine Bilirubin (test code = 1978-6) NEGATIVE NEGATIVE [facility] Rnyiq9526-64-50 19:29:00* Test Item Value Reference Range Interpretation Comments Urine Blood (test code = 07881-0) NEGATIVE NEGATIVE [facility] [id number] 19:29:00* Test Item Value Reference Range Interpretation Comments Urine WBC (test code = 5821-4) NONE 0-5 [facility] [id number] 19:29:00* Test Item Value Reference Range Interpretation Comments Urine RBC (test code = 62400-6) NONE 0-5 [facility] Ptppoief7852-53-32 19:29:00* Test Item Value Reference Range Interpretation Comments Urine Bacteria (test code = 88362-4) NONE NONE [facility] Epithelial [id number] 19:29:00 * Test Item Value Reference Range Interpretation Comments Urine Epithelial Cells (test code = 58989-5) RARE NONE [facility] CenterCT [facility]BD[facility]EN/PELVIS [id number] 16:14:00 [facility] [address] [address] Patient Name: MUKESH HILLIARD MR #: [id number] : 6 Age/Sex: 64/M Req #: [id number] Adm Physician: Ordered by: LENNOX STYLES DO Report #: [id number] Location: ER Room/Bed: Procedure: [id number] C T/CT ABDOMEN/PELVIS WO Exam Date: 03/11/19 [...] 03/11/191648 C OPY TO: LENNOX STYLES DO [id number] 15:59:00* Test Item Value Reference Range Interpretation Comments Lipase (test code = 3040-3) 148 8-78 H [facility] CenterLipase2020-01-23 15:59:00* Test Item Value Reference Range Interpretation Comments Lipase (test code = 3040-3) 148 8-78 H [facility] CenterCreatine Kinase [id number] 15:34:00* Test Item Value Reference Range Interpretation Comments Creatine Kinase MB (test code = 89540-7) 1.80 0-5.0 [facility] CenterTroponin [id number] 15:34:00* Test Item Value Reference Range Interpretation Comments Troponin I (test code = GQA6919) 0.098 0-0.300 [facility] CenterCreatine Kinase [id number] 15:34:00* Test Item Value Reference Range Interpretation Comments Creatine Kinase MB (test code = 21993-0) 1.80 0-5.0 [facility] CenterTroponin [id number] 15:34:00* Test Item Value Reference Range Interpretation Comments Troponin I (test code = TXH6340) 0.098 0-0.300 [facility] Xqhxs0947-34-71 15:29:00* Test Item Value Reference Range Interpretation Comments Sodium Level (test code = 2951-2) 132 136-145 L [facility] CenterPotassium Iqbub7825-15-64 15:29:00* Test Item Value Reference Range Interpretation Comments Potassium Level (test code = 2823-3) 3.8 3.5-5.1 [facility] CenterChloride Krssm4475-88-54 15:29:00* Test Item Value Reference Range Interpretation Comments Chloride Level (test code = 2075-0) 83 98-107 L [facility] CenterCarbon Dioxide Njunv5524-11-74 15:29:00* Test Item Value Reference Range Interpretation Comments Carbon Dioxide Level (test code = 2028-9) 30 22-29 H [facility] CenterAnion Ldw9957-15-39 15:29:00* Test Item Value Reference Range Interpretation Comments Anion Gap (test code = 32940-4) 22.8 8-16 H [facility] CenterBlood Urea Sfxauemk5298-64-23 15:29:00* Test Item Value Reference Range Interpretation Comments Blood Urea Nitrogen (test code = 3094-0) 30 7-26 [facility] CenterCreatinine2020-01-23 15:29:00* Test Item Value Reference Range Interpretation Comments Creatinine (test code = 2160-0) 1.98 0.72-1.25 H [facility] CenterBUN/Creatinine Zebdl1295-82-43 15:29:00* Test Item Value Reference Range Interpretation Comments BUN/Creatinine Ratio (test code = 3097-3) 15 6-25 [facility] CenterEstimat Glomerular Filtration Rate 2019 15:29:00* Test Item Value Reference Range Interpretation Comments Estimat Glomerular Filtration Rate (test code = 249926107) 34 >60 L Ranges were taken from the National Kidney Disease Education Program and the [facility] access hospital Kidney Foundation literature.Reference ranges:60 or greater: Zgxmkm01-90 ( for 3 consecutive months): Chronic kidney disease 15 or less: Kidney failureLongview Regional Medical CenterGlucose Errtl3510-43-94 15:29:00* Test Item Value Reference Range Interpretation Comments Glucose Level (test code = TCJ5264) 112 74-118 [facility] CenterCalcium Yezsq1950-76-01 15:29:00* Test Item Value Reference Range Interpretation Comments Calcium Level (test code = 35193-1) 9.7 8.4-10.2 [facility] CenterTotal Ujmqclidy1415-88-07 15:29:00* Test Item Value Reference Range Interpretation Comments Total Bilirubin (test code = 1975-2) 0.6 0.2-1.2 [facility] CenterAspartate Amino Transf (AST/SGOT) 2019 15:29:00* Test Item Value Reference Range Interpretation Comments Aspartate Amino Transf (AST/SGOT) (test code = Aspartate Amino Transf (AST/SGOT)) 37 5-34 H [facility] CenterAlanine Aminotransferase (ALT/SGPT) 2019 15:29:00* Test Item Value Reference Range Interpretation Comments Alanine Aminotransferase (ALT/SGPT) (test code = 1742-6) 24 0-55 [facility] CenterTotal Nazinsr5868-61-15 15:29:00* Test Item Value Reference Range Interpretation Comments Total Protein (test code = 2885-2) 6.9 6.5-8.1 [facility] CenterAlbumin2020-01-23 15:29:00* Test Item Value Reference Range Interpretation Comments Albumin (test code = 1751-7) 3.9 3.5-5.0 [facility] CenterGlobulin2020-01-23 15:29:00* Test Item Value Reference Range Interpretation Comments Globulin (test code = 78283-4) 3.0 2.3-3.5 [facility] CenterAlbumin/Globulin Hsfbw9411-31-84 15:29:00 * Test Item Value Reference Range Interpretation Comments Albumin/Globulin Ratio (test code = 1759-0) 1.3 0.8-2.0 [facility] CenterAlkaline Xmndngkthrp9117-24-36 15:29:00* Test Item Value Reference Range Interpretation Comments Alkaline Phosphatase (test code = 6768-6) 76 40-150 [facility] CenterCreatine Qbeioe5007-31-44 15:29:00* Test Item Value Reference Range Interpretation Comments Creatine Kinase (test code = 2157-6) 58 30-200 [facility] CenterCreatine Czxdsh8926-23-58 15:29:00* Test Item Value Reference Range Interpretation Comments Creatine Kinase (test code = 2157-6) 58 30-200 [facility] CenterLactic Acid Pricf5696-62-79 15:23:00* Test Item Value Reference Range Interpretation Comments Lactic Acid Level (test code = Lactic Acid Level) 2.0 0.5- 2.0 [facility] CenterLactic Acid Lemrk6795-61-57 15:23:00* Test Item Value Reference Range Interpretation Comments Lactic Acid Level (test code = Lactic Acid Level) 2.0 0.5- 2.0 [facility] CenterWhite Blood Dihmr5684-76-46 15:06:00* Test Item Value Reference Range Interpretation Comments White Blood Count (test code = 6690-2) 8.20 4.8-10.8 [facility] CenterRed Blood Cfyzh8478-39-57 15:06:00* Test Item Value Reference Range Interpretation Comments Red Blood Count (test code = 789-8) 3.22 4.3-5.7 L [facility] CenterHemoglobin2020-01-23 15:06:00* Test Item Value Reference Range Interpretation Comments Hemoglobin (test code = 07111-6) 11.0 14.0-18.0 L [facility] CenterHematocrit2020-01-23 15:06:00* Test Item Value Reference Range Interpretation Comments Hematocrit (test code = 4544-3) 31.8 38.2-49.6 L [facility] CenterMean Corpuscular Nezgny6744-83-94 15:06:00* Test Item Value Reference Range Interpretation Comments Mean Corpuscular Volume (test code = 787-2) 98.8 81-99 [facility] CenterMean Corpuscular Pnublkzcyj8812-23-98 15:06:00* Test Item Value Reference Range Interpretation Comments Mean Corpuscular Hemoglobin (test code = 785-6) 34.2 28-32 H [facility] CenterMean Corpuscular Hemoglobin Concent 2019 15:06:00* Test Item Value Reference Range Interpretation Comments Mean Corpuscular Hemoglobin Concent (test code = 786-4) 34.6 31-35 [facility] CenterRed Cell Distribution Iclgj9056-52-57 15:06:00* Test Item Value Reference Range Interpretation Comments Red Cell Distribution Width (test code = 85576-8) 12.7 11.7 -14.4 [facility] CenterPlatelet Utysl0000-34-26 15:06:00* Test Item Value Reference Range Interpretation Comments Platelet Count (test code = 777-3) 265 140-360 [facility] CenterNeutrophils (%) (Auto)2019 15:06:00 * Test Item Value Reference Range Interpretation Comments Neutrophils (%) (Auto) (test code = 74925-8) 72.2 38.7-80.0 [facility] CenterLymphocytes (%) (Auto)2019 15:06:00 * Test Item Value Reference Range Interpretation Comments Lymphocytes (%) (Auto) (test code = 736-9) 15.0 18.0-39.1 L [facility] CenterMonocytes (%) (Auto)2019 15:06:00* Test Item Value Reference Range Interpretation Comments Monocytes (%) (Auto) (test code = 5905-5) 8.5 4.4-11.3 [facility] CenterEosinophils (%) (Auto)2019 15:06:00 * Test Item Value Reference Range Interpretation Comments Eosinophils (%) (Auto) (test code = 713-8) 3.0 0.0-6.0 [facility] CenterBasophils (%) (Auto)2019 15:06:00* Test Item Value Reference Range Interpretation Comments Basophils (%) (Auto) (test code = 706-2) 0.7 0.0-1.0 [facility] CenterIM GRANULOCYTES %2019 15:06:00* Test Item Value Reference Range Interpretation Comments IM GRANULOCYTES % (test code = IM GRANULOCYTES %) 0.6 0.0- 1.0 [facility] CenterNeutrophils # (Auto)2019 15:06:00* Test Item Value Reference Range Interpretation Comments Neutrophils # (Auto) (test code = 751-8) 5.9 2.1-6.9 [facility] CenterLymphocytes # (Auto)2019 15:06:00* Test Item Value Reference Range Interpretation Comments Lymphocytes # (Auto) (test code = 51465-4) 1.2 1.0-3.2 [facility] CenterMonocytes # (Auto)2019 15:06:00* Test Item Value Reference Range Interpretation Comments Monocytes # (Auto) (test code = 742-7) 0.7 0.2-0.8 [facility] CenterEosinophils # (Auto)2019 15:06:00* Test Item Value Reference Range Interpretation Comments Eosinophils # (Auto) (test code = 711-2) 0.3 0.0-0.4 [facility] CenterBasophils # (Auto)2019 15:06:00* Test Item Value Reference Range Interpretation Comments Basophils # (Auto) (test code = 704-7) 0.1 0.0-0.1 [facility] CenterAbsolute Immature Granulocyte (auto 2019 15:06:00* Test Item Value Reference Range Interpretation Comments Absolute Immature Granulocyte (auto (cecile t code = Absolute Immature Granulocyte (auto) 0.05 0-0.1 [facility] CenterFluoroscopic procedure less than one hour lbbtaoft0545-55-51 14:42:00* Test Item Value Reference Range Interpretation Comments Lactic Acid Level (test code = Lactic Acid Level) 2.0 mmol/L 0.5- 2.0 [facility] CenterBlood lpdsmfu9476-57-02 14:42:00* Test Item Value Reference Range Interpretation Comments Blood Culture (test code = 41955632) NO GROWTH AFTER 5 DAYS, FINAL REPORT [facility]
--- NOTE | 2019-12-29 06:50 | Diagnostic Imaging Report ---
EXAMINATION: CHEST 2 VIEWS INDICATION: ^weakness ^[id number] ^[id number] COMPARISON: None FINDINGS: TUBES and LINES: None. LUNGS: Elevated right hemidiaphragm. Normal lung volumes. Lungs are clear. No consolidations. PLEURA: No pleural effusion or pneumothorax. HEART AND MEDIASTINUM: The cardiomediastinal silhouette is unremarkable. There are atherosclerotic calcifications within the aorta. BONES AND SOFT TISSUES: No acute osseous lesion. Soft tissues are unremarkable. UPPER ABDOMEN: No free air under the diaphragm. IMPRESSION: No acute thoracic radiographic abnormality. Signed by: Dawood Chappell DO on 12/29/2019 6:47 AM
--- NOTE | 2019-12-29 06:55 | NUR ---
PT REFUSING CT BRAIN AND PT STATES, "I DID NOT HIT MY HEAD, BECAUSE I DIDNT PASS OUT. " ER , DR. CAMILO, NOTIFIED.
[2019-12-29] MEDS ORDERED: POTASSIUM CHLORIDE 20 MEQ TAB CR PO STA (09:36)
--- NOTE | 2019-12-29 15:01 | NUR ---
Recvd patient from ER. AAOX3. No distress noted , patient refusing to give urine sample for c/s, call light in reach, bed alarm ON
[2019-12-29 15:10] VITALS: BP 128/84
[2019-12-29 16:00] LABS: CREATINE KINASE MB 0.4 ng/mL (0-5.0)
--- NOTE | 2019-12-29 18:13 | NUR ---
per patient no home medications he is taking
--- NOTE | 2019-12-29 19:00 | NUR ---
Bedside rounds completed with morning nurse. Pt alert and oriented to name, some agitation upset about during rounds while he is sleeping, denies pain at this time. Call light within reach. Bed alarm on.
[2019-12-29 20:33] LABS: CREATINE KINASE MB 0.3 ng/mL (0-5.0)
[2019-12-29 20:40] VITALS: BP 127/82
[2019-12-29 21:10] VITALS: BP 127/82
--- NOTE | 2019-12-29 23:15 | NUR ---
History&Physical Chief Complaint - weakness, syncope History of Present Illness Mr Ordonez is a 64 yo M with PMH significant for HTN and previous alcohol abuse who presented for weakness and possible syncopal episode. Patient lives at home and states he was feeling normal until he "slipped and fell" around 3pm on day prior to admission. He remained on the ground for several hours as he was too weak to stand up. Was then found by neighbor, patient was described as laying in his own feces. Patient does not recall how he ended up laying in his own feces. Denies loss of consciousness. Denies hitting his head. Patient insists he slipped and fell. He used to drink a handle of liquor every 2 days but was admitted to [facility] in Nov 2019 for alcohol withdrawal and since then has not had a drink. At baseline, he ambulates without assistance and lives on his own, accomplishing his ADL's without assistance. In ED, VSS. CXR clear. Labs only significant for WBC 15, mild hyponatremia 135. EtOH level normal. Home Medications - see medication reconciliation Review of Systems - positive symptoms in BOLD General: No fever, chills, or fatigue HEENT: Denies visual changes, hearing loss, congestion, rhinorrhea, or bleeding Respiratory: No SOB, cough, or hemoptysis Cardiovascular: No chest pain, palpitations, WATSON, orthopnea, PND, leg edema, or claudication Gastrointestinal: No nausea, vomiting, diarrhea, constipation, or abdominal pain G/U: Denies dysuria, hematuria, incontinence, or discharge Musculoskeletal: No myalgias or arthralgias Neurological: No syncope, seizures, headaches, changes in sensation, or weakness Hematology: No bruising, bleeding, or lymphadenopathy Endocrine: No heat or cold intolerance, hair loss, or weight changes Skin: No rashes, sores, itching, bruising Psychiatric: Denies depression or elevated mood, or anxiety Past Medical History HTN, prior history of alcohol abuse, former smoker Past Surgical History None Family History Social History Currently does not drink (stopped 5 weeks ago), does not smoke (prior smoking), and does not use drugs Allergies NKDA Physical Exam Vitals: Temp: 98.5P: 84BP: 127/82RR: 18SpO2: 100% General Appearance: The patient is alert, oriented and in no acute distress. Appears euvolemic. Skin: Warm and hydrated without any rash. HEENT: Head is normocephalic, atraumatic. Nontender sinuses. Pupils are equal and reactive. The nares are patent. Oropharynx is moist and clear without lesions. Neck: Supple without lymphadenopathy. No JVD. 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 Normal S1 and S2 without S3/S4. No murmurs, rubs or gallops. Peripheral pulses symmetric +2. Respiratory / Chest: No crackles or wheezes are heard. Symmetric breath sounds. Preserved chest expansion. Abdomen: Soft, nontender, nondistended with good bowel sounds heard. No clinical organomegaly. Renal: There is no costovertebral angle tenderness. Extremities: Without cyanosis, clubbing or edema. Preserved ROM. Neurological: Gross nonfocal. Patient oriented x 3. Cranial nerves II - XII Grossly intact. DTRs +2. MS: 5/5 globally. Assessment/Plan #Weakness #Possible syncope - maintenance IVF as patient could be dehydrated - orthostatics - ammonia level - telemetry - monitor for any mental status changes I have spent 70 minutes [id number] time with patient, reviewing clinical data, and formulating plan of treatment. Des Maher MD Internal Medicine
[2019-12-29] MEDS ORDERED: SODIUM CHLORIDE 0.9% 1000ML 1,000 ML IV SCH (23:30)
[2019-12-30] VITALS (9 sets, daily range): BP systolic 105–138; BP diastolic 68–89
[2019-12-30 06:28] LABS: BASOPHILS % 0.4 % (0.0-1.0); EOSINOPHILS # (AUTO) 0.3 (0.0-0.4); EOSINOPHILS % 3.2 % (0.0-6.0); HEMOGLOBIN 10.2 g/dL (14.0-18.0); LYMPHOCYTES % 10.1 % (18.0-39.1); MEAN CORPUSCULAR HEMOGLOBIN 33.8 pg (28-32); MEAN CORPUSCULAR HGB CONC 31.9 g/dL (31-35); MONOCYTES # (AUTO) 0.9 (0.2-0.8); MONOCYTES % 9.6 % (4.4-11.3); NEUTROPHILS # (AUTO) 7.5 (2.1-6.9); NEUTROPHILS % 76.3 % (38.7-80.0); PLATELET COUNT 312 x10e3/uL (140-360); RED BLOOD COUNT 3.02 x10e6/uL (4.3-5.7); RED CELL DISTRIBUTION WIDTH 13.9 % (11.7-14.4)
[2019-12-30 07:02] LABS: ALANINE AMINOTRANSFERASE 11 IU/L (0-55); ALBUMIN 2.1 g/dL (3.5-5.0); ALBUMIN/GLOBULIN RATIO 0.7 (0.8-2.0); ALKALINE PHOSPHATASE 117 IU/L (40-150); ANION GAP 11.9 mmol/L (8-16); BLOOD UREA NITROGEN 11 mg/dL (7-26); BUN/CREATININE RATIO 20 (6-25); CALCIUM 8.1 mg/dL (8.4-10.2); CARBON DIOXIDE 29 mmol/L (22-29); CHLORIDE 99 mmol/L (98-107); CREATININE, SERUM 0.56 mg/dL (0.72-1.25); EST GLOMERULAR FILTRATION RATE > 60 ML/MIN (60-); GLUCOSE 87 mg/dL (74-118); SODIUM 137 mmol/L (136-145)
[2019-12-30 07:04] LABS: POTASSIUM 2.9 mmol/L (3.5-5.1)
--- NOTE | 2019-12-30 07:20 | NUR ---
received report from lab of critical potassium of 2.9; informed nurse Gregoria, who will be assuming care for patient this morning.
--- NOTE | 2019-12-30 07:42 | NUR ---
call to Dr. Maher for pt critical lab of 2.9 k+. orders given.
[2019-12-30] MEDS ORDERED: POTASSIUM CHLORIDE 20 MEQ TAB CR PO ONE (07:55)
[2019-12-30] MEDS: LACTULOSE SYRUP 20 GM/30 ML UDC PO SCH ×2 (08:41→16:15)
[2019-12-30] MEDS: THIAMINE HCL 100 MG TAB PO SCH (08:42)
--- NOTE | 2019-12-30 09:47 | Diagnostic Imaging Report ---
Examination: CT head without contrast Clinical Indication: Fall. Technique: Transaxial noncontrast images from the skull base through the vertex were obtained. Sagittal and coronal reformatted images were done. Dose modulation, iterative reconstruction, and/or weight based adjustment of the mA/kV was utilized to reduce the radiation dose to as low as reasonably achievable. Comparison: None. Findings: Scalp: No abnormalities. Bones: Intact. No fractures. No blastic or lytic lesions. Brain sulci: Generalized volume for patient's age. Ventricles: No hydrocephalus. Extra-axial space: No abnormalities. Parenchyma: There are mild confluent areas of low-attenuation within subcortical and periventricular white matter, nonspecific, but could represent microvascular ischemic disease. No masses, hemorrhage, or acute or chronic cortical based vascular insults. Suprasellar region: No abnormalities. Craniocervical junction: The foramen magnum is patent. No Chiari one malformation. Impression: 1. No acute intracranial finding. 2. Chronic microvascular ischemic change and generalized volume loss. Signed by: Dr. Antonietta Luciano M.D. on 12/30/2019 9:43 AM
[2019-12-30] MEDS ORDERED: FUROSEMIDE INJ 10 MG/ML 4 ML VIAL IV ONE (13:30)
[2019-12-30] MEDS ORDERED: LOPERAMIDE HCL 2 MG CAP PO ONE (15:30)
[2019-12-30 16:38] LABS: BILIRUBIN,URINE MODERATE (NEGATIVE); CLARITY,URINE TURBID (CLEAR); COLOR,URINE YELLOW (YELLOW); KETONES,URINE TRACE (NEGATIVE); LEUKOCYTE ESTERASE ,URINE NEGATIVE (NEGATIVE); NITRITE,URINE POSITIVE (NEGATIVE); PROTEIN,URINE DIPSTICK 1+ (NEGATIVE); URINE UROBILINOGEN 1 mg/dL (0.2 - 1)
[2019-12-30 16:47] LABS: AMORPHOUS SEDIMENT,URINE MANY (FEW); BACTERIA,URINE MODERATE /HPF
--- NOTE | 2019-12-30 18:13 | NUR ---
Progress Note Subjective 12/29: Patient doing better, however he is exhibiting features of confabulation. Plan was to discharge him home today as he has no other options for dispo, but patient states there is nobody home to open the door for him, so will discharge tomorrow. Worked with PT today and was able to walk about 70 feet with assistance. Has a walker for home use. History of Present Illness Mr Ordonez is a 64 yo M with PMH significant for HTN and previous alcohol abuse who presented for weakness and possible syncopal episode. Patient lives at home and states he was feeling normal until he "slipped and fell" around 3pm on day prior to admission. He remained on the ground for several hours as he was too weak to stand up. Was then found by neighbor, patient was described as laying in his own feces. Patient does not recall how he ended up laying in his own feces. Denies loss of consciousness. Denies hitting his head. Patient insists he slipped and fell. He used to drink a handle of liquor every 2 days but was admitted to [facility] in Nov 2019 for alcohol withdrawal and since then has not had a drink. At baseline, he ambulates without assistance and lives on his own, accomplishing his ADL's without assistance. In ED, VSS. CXR clear. Labs only significant for WBC 15, mild hyponatremia 135. EtOH level normal. Physical Exam Vitals: Temp: 98.3P: 89BP: 127/89RR: 18SpO2: 94% General Appearance: The patient is alert, oriented and in no acute distress. Appears euvolemic. Skin: Warm and hydrated without any rash. HEENT: Head is normocephalic, atraumatic. Nontender sinuses. Pupils are equal and reactive. The nares are patent. Oropharynx is moist and clear without lesions. Neck: Supple without lymphadenopathy. No JVD. Thyroid NV/MVA [employer] HEAD Heart / Cardiovascular: Regular rate and rhythm. Normal S1 and S2 without S3/S4. No murmurs, rubs or gallops. Peripheral pulses symmetric +2. Respiratory / Chest: No crackles or wheezes are heard. Symmetric breath sounds. Preserved chest expansion. Abdomen: Soft, nontender, nondistended with good bowel sounds heard. No clinical organomegaly. Renal: There is no costovertebral angle tenderness. Extremities: Without cyanosis, clubbing or edema. Preserved ROM. Neurological: Gross nonfocal. Patient oriented x 3. Cranial nerves II - XII Grossly intact. DTRs +2. MS: 5/5 globally. Psych: patient has normal affect however at times is exhibiting signs of confabulation. 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
[2019-12-30] MEDS ORDERED: DIPHENOXYLATE/ATROPINE TAB PO PRN (18:45)
--- NOTE | 2019-12-30 18:55 | NUR ---
Bedside report received from morning nurse. Pt alert and oriented to name, lying in bed HOB 30 degrees, denies pain at this time. Call light within reach. Bed alarm on.
--- NOTE | 2019-12-30 19:09 | NUR ---
walking rounds complete, report given to oncoming nurse
[2019-12-31] VITALS (9 sets, daily range): BP systolic 124–143; BP diastolic 80–103
--- NOTE | 2019-12-31 06:55 | NUR ---
PT RESTING IN BED. PT IN STABLE CONDITION. TELE APPLIED. BEDSIDE SHIFT REPORT GIVEN TO ONCOMING NURSE.
--- NOTE | 2019-12-31 07:32 | NUR ---
PATIENT IN BED RESTING WITH EYES CLOSED, NO DISTRESS. URINAL EMPTIED AND CLEANSED. BED IN LOWER POSITION, CALL LIGHT AT REACH.
[2019-12-31] MEDS: LACTULOSE SYRUP 20 GM/30 ML UDC PO SCH ×2 (09:00→17:00)
[2019-12-31] MEDS: THIAMINE HCL 100 MG TAB PO SCH (09:10)
[2019-12-31 12:03] LABS: BASOPHILS # (AUTO) 0.1 (0.0-0.1); BASOPHILS % 0.7 % (0.0-1.0); EOSINOPHILS # (AUTO) 0.5 (0.0-0.4); EOSINOPHILS % 7.4 % (0.0-6.0); HEMATOCRIT 34.9 % (38.2-49.6); HEMOGLOBIN 11.1 g/dL (14.0-18.0); LYMPHOCYTES # (AUTO) 0.8 (1.0-3.2); LYMPHOCYTES % 11.2 % (18.0-39.1); MEAN CORPUSCULAR HEMOGLOBIN 32.8 pg (28-32); MEAN CORPUSCULAR HGB CONC 31.8 g/dL (31-35); MEAN CORPUSCULAR VOLUME 103.3 fL (81-99); MONOCYTES # (AUTO) 0.7 (0.2-0.8); MONOCYTES % 9.7 % (4.4-11.3); NEUTROPHILS # (AUTO) 4.9 (2.1-6.9); NEUTROPHILS % 70.7 % (38.7-80.0); PLATELET COUNT 349 x10e3/uL (140-360); RED BLOOD COUNT 3.38 x10e6/uL (4.3-5.7); RED CELL DISTRIBUTION WIDTH 13.4 % (11.7-14.4)
--- NOTE | 2019-12-31 12:06 | NUR ---
PATIENT REFUSED TELEMETRY AFTER 3 ATTEMPTS. NOTIFIED, NEW ORDER RECEIVED TO D/C TELEMETRY.
[2019-12-31 12:16] LABS: ANION GAP 11.3 mmol/L (8-16); BLOOD UREA NITROGEN 7 mg/dL (7-26); BUN/CREATININE RATIO 12 (6-25); CALCIUM 8.2 mg/dL (8.4-10.2); CARBON DIOXIDE 31 mmol/L (22-29); CHLORIDE 97 mmol/L (98-107); CREATININE, SERUM 0.59 mg/dL (0.72-1.25); EST GLOMERULAR FILTRATION RATE > 60 ML/MIN (60-); GLUCOSE 94 mg/dL (74-118); POTASSIUM 3.3 mmol/L (3.5-5.1); SODIUM 136 mmol/L (136-145)
--- NOTE | 2019-12-31 14:05 | NUR ---
[facility] UNABLE TO ACCEPT PT, [facility] LOOKING AT IT.
--- NOTE | 2019-12-31 15:17 | NUR ---
PATIENT IN BED WITH HEAD OF BED ELEVATED, NO DISTRESS NOTED. CALL LIGHT AT REACH.
--- NOTE | 2019-12-31 16:00 | NUR ---
SPOKE WITH PT ABOUT PLACEMENT AT [facility] LET HIM KNOW ABOUT PAYMENT OPTIONS. IF HE GOES TO HIS FIRST CHOICE [facility] HE HAS TO HAVE ALMOST $6000. UP FRONT. HE STATES HE WILL WORK WITH [facility] ON PLACEMENT AND PAYMENT AGREEMENT. GAVE FACILITY HIS PHONE NUMBER AND WILL UPDATE.
--- NOTE | 2019-12-31 17:51 | NUR ---
Progress Note Subjective 12/30: No acute complaints. Pending SNF placement for PT rehab. Still has some diarrhea, however unlikely to be Cdiff as has not been on antibiotics recently. 12/29: Patient doing better, however he is exhibiting features of confabulation. Plan was to discharge him home today as he has no other options for dispo, but patient states there is nobody home to open the door for him, so will discharge tomorrow. Worked with PT today and was able to walk about 70 feet with assistance. Has a walker for home use. History of Present Illness Mr Ordonez is a 64 yo M with PMH significant for HTN and previous alcohol abuse who presented for weakness and possible syncopal episode. Patient lives at home and states he was feeling normal until he "slipped and fell" around 3pm on day prior to admission. He remained on the ground for several hours as he was too weak to stand up. Was then found by neighbor, patient was described as laying in his own feces. Patient does not recall how he ended up laying in his own feces. Denies loss of consciousness. Denies hitting his head. Patient insists he slipped and fell. He used to drink a handle of liquor every 2 days but was admitted to [facility] in Nov 2019 for alcohol withdrawal and since then has not had a drink. At baseline, he ambulates without assistance and lives on his own, accomplishing his ADL's without assistance. In ED, VSS. CXR clear. Labs only significant for WBC 15, mild hyponatremia 135. EtOH level normal. Physical Exam Vitals: Temp: 98.5P: 92BP: 140/94RR: 20SpO2: 93% General Appearance: The patient is alert, oriented and in no acute distress. Appears euvolemic. Skin: Warm and hydrated without any rash. HEENT: Head is normocephalic, atraumatic. Nontender sinuses. Pupils are equal and reactive. The nares are patent. Oropharynx is moist and clear without lesions. Neck: Supple without lymphadenopathy. No JVD. 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 Normal S1 and S2 without S3/S4. No murmurs, rubs or gallops. Peripheral pulses symmetric +2. Respiratory / Chest: No crackles or wheezes are heard. Symmetric breath sounds. Preserved chest expansion. Abdomen: Soft, nontender, nondistended with good bowel sounds heard. No clinical organomegaly. Renal: There is no costovertebral angle tenderness. Extremities: Without cyanosis, clubbing or edema. Preserved ROM. Neurological: Gross nonfocal. Patient oriented x 3. Cranial nerves II - XII Grossly intact. DTRs +2. MS: 5/5 globally. Psych: patient has normal affect however at times is exhibiting signs of confabulation. 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
[2019-12-31] MEDS ORDERED: POTASSIUM CHLORIDE 20 MEQ TAB CR PO ONE (18:15)
[2020-01-01] VITALS (11 sets, daily range): BP systolic 121–156; BP diastolic 57–96
[2020-01-01 06:37] LABS: BASOPHILS # (AUTO) 0.1 (0.0-0.1); BASOPHILS % 1.1 % (0.0-1.0); EOSINOPHILS # (AUTO) 0.7 (0.0-0.4); HEMATOCRIT 33.5 % (38.2-49.6); HEMOGLOBIN 10.6 g/dL (14.0-18.0); LYMPHOCYTES % 20.1 % (18.0-39.1); MEAN CORPUSCULAR HEMOGLOBIN 32.7 pg (28-32); MEAN CORPUSCULAR HGB CONC 31.6 g/dL (31-35); MEAN CORPUSCULAR VOLUME 103.4 fL (81-99); MONOCYTES # (AUTO) 0.7 (0.2-0.8); MONOCYTES % 15.7 % (4.4-11.3); NEUTROPHILS # (AUTO) 2.3 (2.1-6.9); NEUTROPHILS % 47.9 % (38.7-80.0); PLATELET COUNT 354 x10e3/uL (140-360); RED BLOOD COUNT 3.24 x10e6/uL (4.3-5.7); RED CELL DISTRIBUTION WIDTH 13.5 % (11.7-14.4)
[2020-01-01 06:57] LABS: ALANINE AMINOTRANSFERASE 13 IU/L (0-55); ALBUMIN 2.2 g/dL (3.5-5.0); ALBUMIN/GLOBULIN RATIO 0.6 (0.8-2.0); ALKALINE PHOSPHATASE 111 IU/L (40-150); ANION GAP 11.6 mmol/L (8-16); BLOOD UREA NITROGEN 5 mg/dL (7-26); BUN/CREATININE RATIO 9 (6-25); CALCIUM 8.3 mg/dL (8.4-10.2); CARBON DIOXIDE 28 mmol/L (22-29); CHLORIDE 99 mmol/L (98-107); CREATININE, SERUM 0.56 mg/dL (0.72-1.25); EST GLOMERULAR FILTRATION RATE > 60 ML/MIN (60-); GLUCOSE 93 mg/dL (74-118); POTASSIUM 3.6 mmol/L (3.5-5.1); SODIUM 135 mmol/L (136-145)
--- NOTE | 2020-01-01 07:20 | NUR ---
PATIENT IN BED RESTING WITH NO S/S OF DISCOMFORT. REQUESTED AND RECEIVED A CUP OF WATER. URINAL EMPTIED. BED IN LOWER POSITION, CALL LIGHT AT REACH.
[2020-01-01] MEDS: LACTULOSE SYRUP 20 GM/30 ML UDC PO SCH ×2 (09:00→17:00)
[2020-01-01] MEDS: THIAMINE HCL 100 MG TAB PO SCH (09:03)
--- NOTE | 2020-01-01 13:26 | NUR ---
pt refusing tx / f/u later try again with tx Addendum: 01/01/20 at 1327 by Kashif Bee PTA Amended: Links added.
[2020-01-01] MEDS ORDERED: ACETAMINOPHEN 325 MG TAB PO PRN (14:30)
--- NOTE | 2020-01-01 19:28 | History and Physical ---
HISTORY OF PRESENT ILLNESS: A 64-year-old male with past medical history positive for alcohol abuse, hypertension. Apparently, he was found lying in feces at home. The patient is admitted to the hospital more like a social admission that is inhouse. REVIEW OF SYSTEMS: CARDIOVASCULAR: No chest pain or palpitation. RESPIRATORY: No shortness of breath. No cough. GASTROINTESTINAL: No nausea or vomiting. No diarrhea. GENITOURINARY: No frequency or dysuria. ALLERGIES: NOT ALLERGIC TO ANYTHING. PAST MEDICAL HISTORY: Alcohol abuse and hypertension. SOCIAL HISTORY: He drinks alcohol, we do not know if he smokes. PHYSICAL EXAMINATION: HEART: Showed regular rhythm. Normal S1 and S2 sound. LUNGS: Clear bilaterally. ABDOMEN: Soft. EXTREMITIES: Show no edema. VITAL SIGNS: Blood pressure 127/88, temperature 98.4, heart rate 95 per minute, respiratory rate 20 per minute, oxygen saturation 96%. IMAGING DATA: On the imaging CT of the brain essentially no acute intracranial findings. Chronic microvascular ischemic change and generalized volume loss. On the chest x-ray no acute thoracic or vascular abnormalities. FINAL IMPRESSION: 1. Syncope. 2. Hyponatremia. 3. Hypokalemia. 4. Anemia of chronic disease. 5. Elevated LFTs. 6. Alcohol abuse. PLAN OF TREATMENT: Physical and occupational therapy. The patient probably will need to be placed in a rehab facility. Continue lactulose 20 g twice a day. Potassium chloride has been replaced because of hypokalemia, thiamine 100 mg daily has been ordered due to the history of alcohol abuse. We are going to also give some Tylenol as needed for pain. We are going to use low dose because the patient has a history of alcohol abuse. We are going to order physical therapy and foster care social worker have been ordered already. He is on thiamine also and he is on IV fluids. MD DANIEL Magana/KULDEEP /[id number]
[2020-01-02 04:00] VITALS: BP 132/92
--- NOTE | 2020-01-02 07:15 | NUR ---
PATIENT IN BED RESTING WITH NO S/S OF DISTRESS. BED IN LOWER POSITION AND LOCKED, CALL LIGHT AT REACH.
[2020-01-02 07:55] VITALS: BP 129/80
[2020-01-02 08:03] VITALS: BP 129/80
[2020-01-02 08:36] LABS: BASOPHILS # (AUTO) 0.1 (0.0-0.1); BASOPHILS % 1.2 % (0.0-1.0); EOSINOPHILS # (AUTO) 0.5 (0.0-0.4); HEMATOCRIT 38.4 % (38.2-49.6); HEMOGLOBIN 12.2 g/dL (14.0-18.0); LYMPHOCYTES # (AUTO) 1.3 (1.0-3.2); LYMPHOCYTES % 25.3 % (18.0-39.1); MEAN CORPUSCULAR HGB CONC 31.8 g/dL (31-35); MEAN CORPUSCULAR VOLUME 103.8 fL (81-99); MONOCYTES # (AUTO) 0.5 (0.2-0.8); MONOCYTES % 10.3 % (4.4-11.3); NEUTROPHILS # (AUTO) 2.8 (2.1-6.9); NEUTROPHILS % 53.8 % (38.7-80.0); PLATELET COUNT 372 x10e3/uL (140-360); RED CELL DISTRIBUTION WIDTH 13.2 % (11.7-14.4)
[2020-01-02 08:59] LABS: ALANINE AMINOTRANSFERASE 16 IU/L (0-55); ALBUMIN 2.5 g/dL (3.5-5.0); ALBUMIN/GLOBULIN RATIO 0.7 (0.8-2.0); ALKALINE PHOSPHATASE 124 IU/L (40-150); ANION GAP 13.7 mmol/L (8-16); BLOOD UREA NITROGEN 5 mg/dL (7-26); BUN/CREATININE RATIO 8 (6-25); CALCIUM 8.8 mg/dL (8.4-10.2); CARBON DIOXIDE 29 mmol/L (22-29); CHLORIDE 97 mmol/L (98-107); EST GLOMERULAR FILTRATION RATE > 60 ML/MIN (60-); GLUCOSE 93 mg/dL (74-118); POTASSIUM 3.7 mmol/L (3.5-5.1); SODIUM 136 mmol/L (136-145)
[2020-01-02] MEDS: LACTULOSE SYRUP 20 GM/30 ML UDC PO SCH ×2 (09:00→17:00)
[2020-01-02] MEDS: THIAMINE HCL 100 MG TAB PO SCH (09:15)
[2020-01-02 12:24] VITALS: BP 127/85
--- NOTE | 2020-01-02 12:30 | NUR ---
PATIENT SITTING UP IN BED EATING LUNCH, NO COMPLAIN VOICED. CALL LIGHT AT REACH.
--- NOTE | 2020-01-02 13:16 | Progress Note ---
DATE: Internal Medicine Progress Note. SUBJECTIVE: The patient is doing well. No significant complaint. PHYSICAL EXAMINATION: VITAL SIGNS: Blood pressure 127/85, heart rate is 85 per minute, respiratory rate 19 per minute, temperature 98.4. HEART: Showed regular rhythm. LUNGS: Clear bilaterally. ABDOMEN: Nondistended. EXTREMITIES: Show no edema. IMPRESSION: 1. Syncope. 2. Hypertension. 3. Hyponatremia. 4. Anemia of chronic disease. 5. Elevated LFTs. 6. History of alcohol abuse. PLAN OF TREATMENT: The patient waiting for transfer to SNF. Continue Tylenol 325 mg q.4 hours as needed for mild pain or fever, lactulose 20 g twice a day, and thiamine 100 mg daily. MD DANIEL Magana/KULDEEP /[id number]
[2020-01-02 16:20] VITALS: BP 134/87
--- NOTE | 2020-01-02 20:00 | NUR ---
PATIENT REFUSED IV INSERTION. STATES HE DON'T WANT TO BE STUCK, HE DON'T NEED IT AND HE MIGHT BE DISCHARGE TOMORROW.
[2020-01-02 20:34] VITALS: BP 140/95
[2020-01-03] VITALS (9 sets, daily range): BP systolic 117–143; BP diastolic 82–109
--- NOTE | 2020-01-03 00:36 | NUR ---
PT REFUSED VITAL SIGNS CHECK
[2020-01-03 07:37] LABS: BASOPHILS % 0.8 % (0.0-1.0); EOSINOPHILS # (AUTO) 0.4 (0.0-0.4); EOSINOPHILS % 8.2 % (0.0-6.0); HEMATOCRIT 36.9 % (38.2-49.6); HEMOGLOBIN 11.7 g/dL (14.0-18.0); LYMPHOCYTES # (AUTO) 1.4 (1.0-3.2); LYMPHOCYTES % 25.6 % (18.0-39.1); MEAN CORPUSCULAR HEMOGLOBIN 32.8 pg (28-32); MEAN CORPUSCULAR HGB CONC 31.7 g/dL (31-35); MEAN CORPUSCULAR VOLUME 103.4 fL (81-99); MONOCYTES # (AUTO) 0.7 (0.2-0.8); MONOCYTES % 13.3 % (4.4-11.3); NEUTROPHILS # (AUTO) 2.7 (2.1-6.9); NEUTROPHILS % 51.7 % (38.7-80.0); PLATELET COUNT 343 x10e3/uL (140-360); RED BLOOD COUNT 3.57 x10e6/uL (4.3-5.7); RED CELL DISTRIBUTION WIDTH 13.5 % (11.7-14.4)
[2020-01-03 07:58] LABS: ALANINE AMINOTRANSFERASE 15 IU/L (0-55); ALBUMIN 2.3 g/dL (3.5-5.0); ALBUMIN/GLOBULIN RATIO 0.7 (0.8-2.0); ALKALINE PHOSPHATASE 117 IU/L (40-150); ANION GAP 10.7 mmol/L (8-16); BLOOD UREA NITROGEN 6 mg/dL (7-26); BUN/CREATININE RATIO 10 (6-25); CALCIUM 8.7 mg/dL (8.4-10.2); CARBON DIOXIDE 29 mmol/L (22-29); CHLORIDE 99 mmol/L (98-107); CREATININE, SERUM 0.58 mg/dL (0.72-1.25); EST GLOMERULAR FILTRATION RATE > 60 ML/MIN (60-); GLUCOSE 97 mg/dL (74-118); POTASSIUM 3.7 mmol/L (3.5-5.1); SODIUM 135 mmol/L (136-145)
--- NOTE | 2020-01-03 08:56 | NUR ---
COUSIN LYDIA MARIO [phone] AND BROTHER JAMIE [phone]
--- NOTE | 2020-01-03 08:58 | NUR ---
CALLED FACILITY TO GET UPDATE, STATES THEY ARE REQUESTING APPROVAL FROM ADMIN. WILL HAVE UPDATE SOON, LET COUSIN KNOW THAT IF UNABLE TO GET INTO A FACILITY WILL HAVE TO DISCHARGE HOME. SHE IS UNDERSTANDING.
[2020-01-03] MEDS: LACTULOSE SYRUP 20 GM/30 ML UDC PO SCH ×2 (09:00→17:00)
[2020-01-03] MEDS: THIAMINE HCL 100 MG TAB PO SCH (09:25)
--- NOTE | 2020-01-03 12:00 | NUR ---
Progress Note Subjective 01/02: No events over the weekend, is awaiting SNF. Doing well. 12/30: No acute complaints. Pending SNF placement for PT rehab. Still has some diarrhea, however unlikely to be Cdiff as has not been on antibiotics recently. 12/29: Patient doing better, however he is exhibiting features of confabulation. Plan was to discharge him home today as he has no other options for dispo, but patient states there is nobody home to open the door for him, so will discharge tomorrow. Worked with PT today and was able to walk about 70 feet with assistance. Has a walker for home use. History of Present Illness Mr Ordonez is a 64 yo M with PMH significant for HTN and previous alcohol abuse who presented for weakness and possible syncopal episode. Patient lives at home and states he was feeling normal until he "slipped and fell" around 3pm on day prior to admission. He remained on the ground for several hours as he was too weak to stand up. Was then found by neighbor, patient was described as laying in his own feces. Patient does not recall how he ended up laying in his own feces. Denies loss of consciousness. Denies hitting his head. Patient insists he slipped and fell. He used to drink a handle of liquor every 2 days but was admitted to [facility] in Nov 2019 for alcohol withdrawal and since then has not had a drink. At baseline, he ambulates without assistance and lives on his own, accomplishing his ADL's without assistance. In ED, VSS. CXR clear. Labs only significant for WBC 15, mild hyponatremia 135. EtOH level normal. Physical Exam Vitals: Temp: 98.7P: 97BP: 117/84RR: 18SpO2: 94% General Appearance: The patient is alert, oriented and in no acute distress. Appears euvolemic. Skin: Warm and hydrated without any rash. HEENT: Head is normocephalic, atraumatic. Nontender sinuses. Pupils are equal and reactive. The nares are patent. Oropharynx is moist and clear without lesions. Neck: Supple without lymphadenopathy. No JVD. 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 Normal S1 and S2 without S3/S4. No murmurs, rubs or gallops. Peripheral pulses symmetric +2. Respiratory / Chest: No crackles or wheezes are heard. Symmetric breath sounds. Preserved chest expansion. Abdomen: Soft, nontender, nondistended with good bowel sounds heard. No clinical organomegaly. Renal: There is no costovertebral angle tenderness. Extremities: Without cyanosis, clubbing or edema. Preserved ROM. Neurological: Gross nonfocal. Patient oriented x 3. Cranial nerves II - XII Grossly intact. DTRs +2. MS: 5/5 globally. Psych: patient has normal affect however at times is exhibiting signs of confabulation. Assessment/Plan #Weakness #Possible syncope - improved after IVF, able to walk with PT about 70 feet with assistance - working with PT - pending SNF placement, case management consulted #Hx of alcohol abuse - admitted to 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
[2020-01-04 00:23] VITALS: BP 128/86
[2020-01-04 04:00] VITALS: BP 125/98
[2020-01-04 07:49] VITALS: BP 129/90
[2020-01-04 08:13] VITALS: BP 129/90
[2020-01-04] MEDS: THIAMINE HCL 100 MG TAB PO SCH (08:41)
[2020-01-04] MEDS: LACTULOSE SYRUP 20 GM/30 ML UDC PO SCH (08:41)
[2020-01-04 09:06] LABS: BASOPHILS # (AUTO) 0.1 (0.0-0.1); EOSINOPHILS # (AUTO) 0.4 (0.0-0.4); EOSINOPHILS % 7.1 % (0.0-6.0); HEMATOCRIT 38.6 % (38.2-49.6); HEMOGLOBIN 12.4 g/dL (14.0-18.0); LYMPHOCYTES # (AUTO) 1.3 (1.0-3.2); LYMPHOCYTES % 24.1 % (18.0-39.1); MEAN CORPUSCULAR HEMOGLOBIN 32.6 pg (28-32); MEAN CORPUSCULAR HGB CONC 32.1 g/dL (31-35); MEAN CORPUSCULAR VOLUME 101.6 fL (81-99); MONOCYTES # (AUTO) 0.6 (0.2-0.8); MONOCYTES % 11.9 % (4.4-11.3); NEUTROPHILS # (AUTO) 2.9 (2.1-6.9); NEUTROPHILS % 55.3 % (38.7-80.0); PLATELET COUNT 396 x10e3/uL (140-360); RED CELL DISTRIBUTION WIDTH 13.4 % (11.7-14.4)
[2020-01-04 09:21] LABS: ALANINE AMINOTRANSFERASE 17 IU/L (0-55); ALBUMIN 2.5 g/dL (3.5-5.0); ALBUMIN/GLOBULIN RATIO 0.7 (0.8-2.0); ALKALINE PHOSPHATASE 130 IU/L (40-150); BLOOD UREA NITROGEN 6 mg/dL (7-26); BUN/CREATININE RATIO 9 (6-25); CALCIUM 9.2 mg/dL (8.4-10.2); CARBON DIOXIDE 30 mmol/L (22-29); CHLORIDE 97 mmol/L (98-107); CREATININE, SERUM 0.67 mg/dL (0.72-1.25); EST GLOMERULAR FILTRATION RATE > 60 ML/MIN (60-); GLUCOSE 139 mg/dL (74-118); SODIUM 134 mmol/L (136-145)
[2020-01-04 11:03] VITALS: BP 122/83
--- NOTE | 2020-01-04 13:23 | NUR ---
[facility] FACILITY DISCHARGE INFORMATION PATIENT HAS BEEN ACCEPTED TO: NAME:[facility] ADDRESS:[id number] ACCEPTING SALES COUNSELOR: ESPINOZA REED MD:BRIAN ROOM:158A NURSE CALL REPORT TO: [phone] IMM SIGNED AND OBTAINED (if applicable): NA THE FOLLOWING DOCUMENTS MUST ACCOMPANY PATIENT FOR TRANSFER: COPIED CHART: PACKET
--- NOTE | 2020-01-04 14:52 | NUR ---
report given to juan c Salcedo, at [facility]
[2020-01-04 14:55] VITALS: BP 132/83
--- NOTE | 2020-01-04 16:11 | NUR ---
pt discharged to [facility] and verbalized understanding, pt alert resp, even and unlabored,, pt iv site removed at this time, pt left via ambulance service.
--- NOTE | 2020-01-05 21:37 | NUR ---
Discharge Summary Patient: Yashira Ordonez Admission date: 12/29/2019 Discharge date: 01/04/2020 Attending physician: Des Maher MD Consultation: none Admitting Diagnosis: weakness, presyncope, history of alcohol abuse, osmotic diarrhea, severe protein calorie malnutrition Discharge Diagnosis: weakness, presyncope, history of alcohol abuse, osmotic diarrhea, severe protein calorie malnutrition Procedures: None Hospital Course: Mr Ordonez is a 64 yo M with PMH significant for HTN and previous alcohol abuse who presented for weakness and possible syncopal episode. Patient lives at home and states he was feeling normal until he "slipped and fell" around 3pm on day prior to admission. He remained on the ground for several hours as he was too weak to stand up. Was then found by neighbor, patient was described as laying in his own feces. Patient does not recall how he ended up laying in his own feces. Denies loss of consciousness. Denies hitting his head. Patient insists he slipped and fell. He used to drink a handle of liquor every 2 days but was admitted to [facility] in Nov 2019 for alcohol withdrawal and since then has not had a drink. At baseline, he ambulates without assistance and lives on his own, accomplishing his ADL's without assistance. In ED, VSS. CXR clear. Labs only significant for WBC 15, mild hyponatremia 135. EtOH level normal. Ammonia level normal. He was given IV fluids and returned back to his baseline. Worked with PT and was able to walk about 70 feet with minimal assistance. At baseline he uses a walker. Decision was made to transition to SNF and was accepted to a facility on 01/03. 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 He also had a few episodes of diarrhea this admission and was controlled with lomotil. Low concern for Cdiff as he has not had antibiotics recently. I believe this episode happened because patient was dehydrated and already weak at baseline due to severe hx of alcohol abuse, fell, and was too weak to get back up. He is adamant he did not lose consciousness and remembers slipping and falling. Physical Exam Vitals: Temp: 98.7P: 97BP: 117/84RR: 18SpO2: 94% General Appearance: The patient is alert, oriented and in no acute distress. Appears euvolemic. Skin: Warm and hydrated without any rash. HEENT: Head is normocephalic, atraumatic. Nontender sinuses. Pupils are equal and reactive. The nares are patent. Oropharynx is moist and clear without lesions. Neck: Supple without lymphadenopathy. No JVD. Thyroid NV/BEND UP Heart / Cardiovascular: Regular rate and rhythm. Normal S1 and S2 without S3/S4. No murmurs, rubs or gallops. Peripheral pulses symmetric +2. Respiratory / Chest: No crackles or wheezes are heard. Symmetric breath sounds. Preserved chest expansion. Abdomen: Soft, nontender, nondistended with good bowel sounds heard. No clinical organomegaly. Renal: There is no costovertebral angle tenderness. Extremities: Without cyanosis, clubbing or edema. Preserved ROM. Neurological: Gross nonfocal. Patient oriented x 3. Cranial nerves II - XII Grossly intact. DTRs +2. MS: 5/5 globally. Psych: patient has normal affect however at times is exhibiting signs of confabulation. Discharge medications: see medication reconciliation Discharge plan: Condition on discharge: good Activity: as tolerated Diet: discharge diet Follow-up: follow up with your PCP after discharged from SNF Time spent on discharge: 45 minutes
== END 2020-01-04 16:08 | DRG 896 ==
LOC: ER 04:40 → ERHOLD 06:12 → MED/SURG3 14:53 → OBSVTOIN 12-31 09:38
PROVIDERS: ADMIT Internal Medicine; ATTEND Internal Medicine
DX: F10.26 Alcohol dependence with alcohol-induced persisting amnestic disorder (principal); E43 Unspecified severe protein-calorie malnutrition; E87.1 Hypo-osmolality and hyponatremia; R55 Syncope and collapse; I10 Essential (primary) hypertension; Z87.891 Personal history of nicotine dependence; R19.7 Diarrhea, unspecified; E87.6 Hypokalemia; D63.8 Anemia in other chronic diseases classified elsewhere; Z20.828 Contact with and (suspected) exposure to other viral communicable diseases
CPT/HCPCS: 36415; 70450; 71046; 80048; 80053; 80320; 81001; 82140; 82550; 82553; 82948; 83690; 83735; 84484; 85025; 93005; 96361; 97139; 99251; 99284; G0378; J3411; J7030; U0002